=== PATIENT | male | born 1960 | race Caucasian/White ===

== ENCOUNTER 2020-05-14 09:26 | Day surgery (SDC) | payer OTHER, SELFPAY ==
[2020-05-11 11:26] VITALS: BMI 29.8
--- NOTE | 2020-05-11 14:54 | HO.ANESPROP2 ---
Documented by User: Tracey Gavin 05/11/20 14:57 HPI - Anesthesia Eval Consult details Narrative: 60yo M for colonoscopy PMFSH Past Medical History Medical History Anxiety Arthritis Back pain CAD (coronary artery disease) Depression GERD (gastroesophageal reflux disease) Hiatal hernia Hx of syncope Polycythemia vera Prostate CA Sleep apnea Surgical History Surgical History H/O prostatectomy History of esophagogastroduodenoscopy (EGD) History of inferior vena caval filter placement Hx of cardiac cath Hx of colonoscopy Social History Social History Smoking Status: Never smoker Second Hand Smoke Exposure: Yes Use of substances other than those prescribed or required for medical reasons: Yes Substance Use Frequency: Daily Advance Directives: No Advance Directives Information Provided: No Advance Directives on File: No Meds Allergies Allergy/AdvReac Type Severity Reaction Status Date / Time No Known Allergies Allergy Verified 05/14/20 09:44 [No Known Allergies*] Home Medications Medication Instructions Recorded Confirmed Type amlodipine 1 tab PO DAILY 05/11/20 05/11/20 History aspirin 81 mg PO DAILY 05/11/20 05/11/20 History atorvastatin 1 tab PO DAILY 05/11/20 05/11/20 History cyanocobalamin (vitamin B-12) 100 mcg PO DAILY 05/11/20 05/11/20 History fluoxetine 1 cap PO QAM 05/11/20 05/11/20 History metoprolol tartrate 1 tab PO BID 05/11/20 05/11/20 History omeprazole 1 cap PO QAM 05/11/20 05/11/20 History Exam Exam Date and Time: May 11, 2020 1454 Height,Weight and Vital Signs: Height 6 ft Weight 99.79 kg Pertinent Lab Results Pertinent Lab Results: Laboratory Tests 04/20/20 04/20/20 04/20/20 14:22 14:22 14:22 WBC 7.1 Hgb 17.8 Hct 50.7 Plt Count 181 Sodium 141 Potassium 4.2 Chloride 105 Bicarbonate 27 BUN 13 Creatinine 1.30 Hemoglobin A1c 5.5 Calcium 9.8 Total Bilirubin 1.1 H AST 48 H D ALT 59 H Alkaline Phosphatase 91 Total Protein 8.1 H Albumin 4.7 Assessment and Plan Assessment Anesthesia Assessment: Chart Reviewed Documented by User: Yina Briceño 05/14/20 10:31 PMFSH Past Medical History Medical History Anxiety Arthritis Back pain CAD (coronary artery disease) Depression GERD (gastroesophageal reflux disease) Hiatal hernia Hx of syncope Polycythemia vera Prostate CA Sleep apnea Surgical History Surgical History H/O prostatectomy History of esophagogastroduodenoscopy (EGD) History of inferior vena caval filter placement Hx of cardiac cath Hx of colonoscopy Social History Social History Smoking Status: Never smoker Second Hand Smoke Exposure: Yes Use of substances other than those prescribed or required for medical reasons: Yes Substance Use Frequency: Daily Advance Directives: No Advance Directives Information Provided: No Advance Directives on File: No Meds Allergies Allergy/AdvReac Type Severity Reaction Status Date / Time No Known Allergies Allergy Verified 05/14/20 09:44 [No Known Allergies*] Home Medications Medication Instructions Recorded Confirmed Type amlodipine 1 tab PO DAILY 05/11/20 05/11/20 History aspirin 81 mg PO DAILY 05/11/20 05/11/20 History atorvastatin 1 tab PO DAILY 05/11/20 05/11/20 History cyanocobalamin (vitamin B-12) 100 mcg PO DAILY 05/11/20 05/11/20 History fluoxetine 1 cap PO QAM 05/11/20 05/11/20 History metoprolol tartrate 1 tab PO BID 05/11/20 05/11/20 History omeprazole 1 cap PO QAM 05/11/20 05/11/20 History Exam Airway Mallampati Class: II TM Dist: >3cm Neck ROM: Full Loose/Missing/Broken Teeth: No Heart: RRR Lungs: CTA Assessment and Plan Assessment Anesthesia Assessment: Anesthesia Plan Discussed and Chart Reviewed Final Anesthetic Review NPO: Yes ASA Class: II Final Preanesthetic Review: No Changes in Pt Med Stat, Meds/Allgs Chart Reviewed, Consent Obtained/Reviewed and Anes Risks/Benef Reviewed Patient Risk: Intermediate Procedure Risk: Low Assessment/Block/Sedation in SS: Assess/Block/Sedation-SS Anesthetic Plan Anesthetic Plan: MAC: Disposition: Standard PACU
[2020-05-14 09:39] VITALS: BP 152/87; PULSE 58; RESP 18; TEMP 36.6; O2SAT 98
[2020-05-14] MEDS: Lactated Ringers 1,000 ML 100 ML IVCONT (09:53)
[2020-05-14 11:46] VITALS: BP 116/80; PULSE 78; RESP 16; TEMP 36.1; O2SAT 98
[2020-05-14 12:01] VITALS: BP 112/76; PULSE 76; RESP 18; O2SAT 100
--- NOTE | 2020-05-14 12:10 | OP_ITS ---
SURGEON: Emanuel Buenrostro MD INDICATIONS: The patient presents for evaluation of colorectal cancer screening. Full consent has been obtained from him for this, including risks of bleeding and perforation. PREOPERATIVE DIAGNOSIS: Colorectal cancer screening. POSTOPERATIVE DIAGNOSIS: PROCEDURE PERFORMED: Colonoscopy to cecum and terminal ileum with snare polypectomy. ESTIMATED BLOOD LOSS: COMPLICATIONS: ANESTHESIA: Monitored anesthesia care. ASSISTANTS: SPECIMENS: POSTOPERATIVE DIAGNOSES: Colorectal cancer screening, colon polyp, diverticulosis and internal hemorrhoids. DESCRIPTION OF PROCEDURE: The patient was placed in the left lateral decubitus position. The digital rectal exam revealed no abnormalities. The Olympus video pediatric colonoscope was entered into the rectum and advanced easily to the cecum. Once in the cecum, I did identify cecal pouch with appendiceal orifice and a normal-appearing ileocecal valve. The terminal ileum was cannulated and appeared normal. The scope was withdrawn back in the colon. The entire cecum and ileocecal valve appeared normal. The scope was slowly withdrawn assessing all mucosal surfaces carefully. Preparation throughout the colon had some areas of liquid and some small amounts of solid stool, which were irrigated and suctioned away as best as possible. Visualization was not 100%. The only polyp I visualized was in the mid rectum. This was approximately 8 mm in diameter and was snared and recovered by suction. The polypectomy site appeared clean, without any sign of residual polyp nor bleeding. I did not visualize any other polyps, colitis, nor angiodysplasia. There was a mild amount of sigmoid diverticulosis. In the rectum, scope was retroflexed visualizing small internal hemorrhoids, but no other pathology. The rectal mucosa appeared normal. The scope was straightened out and withdrawn from the patient. He tolerated the procedure well and was returned to the recovery area in stable condition. IMPRESSION: 1. Colon polyp, status post snare polypectomy. 2. Diverticulosis. 3. Internal hemorrhoids. 4. Somewhat limited prep. PLAN: Given the somewhat limited prep, I would recommend a repeat colonoscopy in 5 years for further screening even if today's polyp is not a tubular adenoma. He was advised not to use any aspirin and NSAIDs for 1 week. MD KELLE Head/KEKE / [id number]
[2020-05-14 12:12] VITALS: BP 125/86; PULSE 70; RESP 18; TEMP 36.1; O2SAT 97
--- NOTE | 2020-05-14 12:42 | HO.POSTANES ---
Post Anesthesia Evaluation Post Anesthesia Evaluation Vital Signs: Vital Signs Temp Pulse Resp BP Pulse Ox 05/14/20 12:12 96.9 F 70 18 125/86 97 05/14/20 12:01 76 18 112/76 100 05/14/20 11:46 97 F 78 16 116/80 98 05/14/20 09:39 98 F 58 18 152/87 H 98 Anesthesia: Monitored Mental Status: Awake Pain Control: Satisfactory Nausea/Vomiting: None Hydration: Adequate Anesthesia-Related Issues: No Anes. Related Issues
== END 2020-05-14 12:35 | disposition home or self-care (01) ==
PROVIDERS: PCP Internal Medicine; Visit Provider Internal Medicine
PROC: 0DJD8ZZ Inspection of Lower Intestinal Tract, Via Natural or Artificial Opening Endoscopic (ICD-10-PCS; CPT 45378; principal; 2020-05-14 10:30)
DX: Z12.11 Encounter for screening for malignant neoplasm of colon (principal); D12.8 Benign neoplasm of rectum; K57.30 Diverticulosis of large intestine without perforation or abscess without bleeding; K64.8 Other hemorrhoids; K21.9 Gastro-esophageal reflux disease without esophagitis; K44.9 Diaphragmatic hernia without obstruction or gangrene; D45 Polycythemia vera; Z85.46 Personal history of malignant neoplasm of prostate; Z79.82 Long term (current) use of aspirin; Z79.899 Other long term (current) drug therapy
CPT/HCPCS: 45385; 88305

== ENCOUNTER 2022-03-24 12:31 | Outpatient (REF) | payer OTHER, SELFPAY ==
--- NOTE | ~2022-03-24 | XR_ITS ---
EXAMINATION: XR CHEST XR LEFT HEMITHORACIC RIBS CLINICAL INFORMATION: Chest pain. COMPARISON: Chest radiograph done on 08/15/2018. TECHNIQUE: 2 views of the chest and 3 views of the left hemithoracic ribs were obtained. The site of the left lower lateral hemithoracic rib pain as was pointed out by the patient was marked with a cutaneous BB marker. FINDINGS: Chest: Both lungs are symmetrically expanded and appear clear. The cardiac mediastinal silhouette is within normal limit. No evidence of any pleural effusion or pneumothorax. Mild multilevel degenerative spondylosis. Visualized upper abdomen is unremarkable. Left hemithoracic RIBS: There are no displaced left lower hemithoracic rib fractures identified. Specifically, the site of the left lower hemithoracic rib pain as was pointed out by the patient and which was marked with a cutaneous BB marker does not show any underlying displaced fracture. Incidental note is made of presence of inferior vena cava filter. XR/XR chest 2V IMPRESSION: No radiographic evidence of any displaced left lower lateral hemithoracic rib fracture or hemopneumothorax or lung contusion. The etiology for chest pain is not evident on these images.
--- NOTE | ~2022-03-24 | XR_ITS ---
EXAMINATION: XR CHEST XR LEFT HEMITHORACIC RIBS CLINICAL INFORMATION: Chest pain. COMPARISON: Chest radiograph done on 08/15/2018. TECHNIQUE: 2 views of the chest and 3 views of the left hemithoracic ribs were obtained. The site of the left lower lateral hemithoracic rib pain as was pointed out by the patient was marked with a cutaneous BB marker. FINDINGS: Chest: Both lungs are symmetrically expanded and appear clear. The cardiac mediastinal silhouette is within normal limit. No evidence of any pleural effusion or pneumothorax. Mild multilevel degenerative spondylosis. Visualized upper abdomen is unremarkable. Left hemithoracic RIBS: There are no displaced left lower hemithoracic rib fractures identified. Specifically, the site of the left lower hemithoracic rib pain as was pointed out by the patient and which was marked with a cutaneous BB marker does not show any underlying displaced fracture. Incidental note is made of presence of inferior vena cava filter. XR/XR ribs LT 2V IMPRESSION: No radiographic evidence of any displaced left lower lateral hemithoracic rib fracture or hemopneumothorax or lung contusion. The etiology for chest pain is not evident on these images.
--- NOTE | 2022-03-24 12:37 | ECG_ITS ---
Test Reason : ascd w/o angina Blood Pressure : / mmHG Vent. Rate : 063 BPM Atrial Rate : 063 BPM P-R Int : 176 ms QRS Dur : 092 ms QT Int : 416 ms P-R-T Axes : 041 -11 074 degrees QTc Int : 425 ms Normal sinus rhythm Normal ECG When compared with ECG of 16-DEC-2018 16:46, No significant change was found Referred By: Delmy Quiroz Electronically Signed By:SAPNA BONE
== END 2022-03-24 12:32 | disposition home or self-care (01) ==
LOC: HO.XRAY 12:31
PROVIDERS: PCP Internal Medicine; Visit Provider Internal Medicine
DX: R07.9 Chest pain, unspecified (principal); I25.10 Atherosclerotic heart disease of native coronary artery without angina pectoris
CPT/HCPCS: 71046; 71100; 93005

== ENCOUNTER 2022-12-29 14:23 | Outpatient (REF) | payer OTHER, SELFPAY ==
[2022-12-29 14:35] LABS: MANUAL DIFF FLAG NO
[2022-12-29 15:56] LABS: Basophils Absolute Auto 0.1 X10*3/uL (0.0-0.2); Basophils Percent Auto 1.1 % (0-2); Eosinophils Absolute Auto 0.4 X10*3/uL (0.0-0.4); Hematocrit 52.4 % (42.0-52.0); Hemoglobin 18.2 g/dl (14.0-18.0); Imm Gran Abs Auto 0.01 X10*3/uL (0.00-0.03); Imm Gran Pct Auto 0.2 % (0.0-0.4); Lymphocytes Absolute Auto 2.4 X10*3/uL (1.2-4.9); Lymphocytes Percent Auto 37.4 % (20-40); Mean Corpuscular HGB Conc 34.7 g/dl (31.0-36.0); Mean Corpuscular Hemoglobin 32.6 pg (27.0-33.0); Mean Corpuscular Volume 93.7 fL (80.0-98.0); Mean Platelet Volume 10.9 fL (9.4-12.4); Monocytes Absolute Auto 0.6 X10*3/uL (0.1-1.2); Monocytes Percent Auto 8.7 % (2-11); Neutrophils Percent Auto 46.6 % (45-73); Platelet Count 190 X10*3/uL (160-400); Red Blood Count 5.59 X10*6/uL (4.60-5.80); Red Cell Distribution Width 13.2 % (11.0-16.0); White Blood Count 6.3 X10*3/uL (4.8-10.8)
[2022-12-29 16:40] LABS: Alanine Aminotransferase 97 U/L (0-40); Albumin Level 4.3 g/dL (3.5-5.0); Alkaline Phosphatase 94 U/L (39-117); Anion Gap 10 (12-20); Aspartate Amino Transferase 52 U/L (5-37); Bilirubin Total 1.3 mg/dL (0.0-1.0); Blood Urea Nitrogen 12 mg/dL (9-16); Calcium 9.8 mg/dL (8.4-10.2); Carbon Dioxide 28 mmol/L (22-29); Chloride 108 mmol/L (96-108); Cholesterol 201 mg/dL; Estimated Glomerular Filt Rate 55; Glucose Random 88 mg/dL (60-115); HDL Cholesterol 35 mg/dL; LDL Cholesterol Calculated 148 mg/dl; Potassium 4.4 mmol/L (3.3-5.1); Sodium 142 mmol/L (135-145); Total Protein 7.7 g/dL (6.5-8.0); Triglycerides 91 mg/dL
[2022-12-29 17:13] LABS: Folate 14.1 ng/mL (> or = 4.0); Free T4 (Free Thyroxine) 0.93 ng/dL (0.71-1.85); Prostate Specific Antigen Scr < 0.10 ng/mL (<0.05-4.0); Thyroid Stimulating Hormone 1.53 uIU/mL (0.32-4.0); Vitamin B12 885 pg/mL (200-900)
== END 2022-12-29 14:24 | disposition home or self-care (01) ==
LOC: HO.LAB 14:23
PROVIDERS: PCP Internal Medicine; Visit Provider Internal Medicine
DX: Z12.5 Encounter for screening for malignant neoplasm of prostate (principal); I25.10 Atherosclerotic heart disease of native coronary artery without angina pectoris; E78.00 Pure hypercholesterolemia, unspecified
CPT/HCPCS: 36415; 80053; 80061; 82607; 82746; 84153; 84439; 84443; 85025

== ENCOUNTER 2023-01-11 11:32 | Outpatient (REF) | payer OTHER, SELFPAY ==
--- NOTE | ~2023-01-11 | XR_ITS ---
EXAMINATION: XR CERVICAL SPINE CLINICAL INFORMATION: Nondisplaced fracture of C5 COMPARISON: None available. TECHNIQUE: 5 views of the cervical spine were obtained. FINDINGS: Bone alignment is normal. No fracture is appreciated. There is extensive degenerative spondylosis with large bridging vertebral body bony osteophytes seen from C2-C3 to C6-C7. There is degenerative disc space narrowing at multiple levels. There are degenerative changes at the C1 dens articulation. There is severe bilateral neuroforaminal narrowing from C3-C4 to C6-C7. Prevertebral soft tissues are normal. XR/XR cervical spine 4V IMPRESSION: Multilevel degenerative changes. No fracture seen.
== END 2023-01-11 11:33 | disposition home or self-care (01) ==
LOC: HO.XRAY 11:32
PROVIDERS: Visit Provider Physician Assistant
DX: S12.401 Unspecified nondisplaced fracture of fifth cervical vertebra (principal)
CPT/HCPCS: 72050

== ENCOUNTER → 2023-02-02 12:27 | Outpatient (BNVA) | payer OTHER, SELFPAY | PROVIDERS: PCP Internal Medicine; Visit Provider Physician Assistant | DX: M54.2 Cervicalgia (principal); S12.401D Unspecified nondisplaced fracture of fifth cervical vertebra, subsequent encounter for fracture with routine healing; V29.888D Rider (driver) (passenger) of other motorcycle injured in other specified transport accidents, subsequent encounter; F10.20 Alcohol dependence, uncomplicated | CPT/HCPCS: 99202 ==

== ENCOUNTER 2023-03-02 09:20 | Outpatient (REF) | payer OTHER, SELFPAY ==
--- NOTE | ~2023-03-02 | XR_ITS ---
EXAMINATION: XR CERVICAL SPINE CLINICAL INFORMATION: Cervicalgia. History of nondisplaced fracture of C5 COMPARISON: Cervical spine radiographs 01/11/2023 TECHNIQUE: AP and open-mouth odontoid views and lateral extension, lateral flexion and swimmer's view obtained. FINDINGS: The C5 fracture is not well characterized on this study. Extensive multilevel degenerative changes are seen with extensive spondylosis throughout the cervical spine with disc narrowing present at C4-C5 and C5-C6 levels and marked decrease in the C6-C7 disc level. The C7 vertebral body is not optimally visualized. Limited flexion and extension with no segmental instability seen in the regions evaluated. XR/XR cervical spine 3V IMPRESSION: Technically limited examination. No segmental instability is seen.
== END 2023-03-02 09:21 | disposition home or self-care (01) ==
LOC: HO.HOSX 09:20
PROVIDERS: PCP Internal Medicine; Visit Provider Physician Assistant
DX: S12.401 Unspecified nondisplaced fracture of fifth cervical vertebra (principal)
CPT/HCPCS: 72040; 99212

== ENCOUNTER 2023-03-02 14:04 | Outpatient (AMB) | payer OTHER, SELFPAY ==
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
== END 2023-03-02 14:32 | disposition home or self-care (01) ==
PROVIDERS: PCP Internal Medicine; Visit Provider Physician Assistant
DX: S12.401 Unspecified nondisplaced fracture of fifth cervical vertebra (principal)
CPT/HCPCS: 99213

== ENCOUNTER 2023-04-27 14:28 | Outpatient (AMB) | payer OTHER, SELFPAY ==
--- NOTE | 2023-04-27 14:45 | A.OFFPC_ITS ---
Vital Signs 04/27/23 14:46 Height 6 ft Weight 217 lb BMI 29.4 BP 110/58 L Blood Pressure Location Lt brachial Position Sitting Pulse 55 Pulse Source Pulse Oximeter Pulse Oximetry (%) 98 Oxygen Delivery Method Room Air Intake Visit Reasons: 3mth f/u Oven Press Tender: Not Required per policy Accompanied by: Self / Same As Patient Allergies No Known Allergies [No Known Allergies*] Allergy (Verified 04/27/23 14:46) Medication List - Last Reconciled 04/27/23 by Delmy Quiroz MD amlodipine 5 mg PO DAILY aspirin 81 mg PO DAILY atorvastatin 80 mg PO DAILY 90 days baclofen 20 mg PO BEDTIME 28 days cyanocobalamin (vitamin B-12) 100 mcg PO DAILY metoprolol tartrate 25 mg PO BID omeprazole 20 mg PO QAM 90 days tramadol 50 mg PO BID PRN 15 days triamcinolone acetonide 0.5% 1 appl topical BID Tobacco use date assessed: 01/08/23 Fall risk assessment: No Falls in past year Last assessed Fall Risk: 04/27/23 Dental Screening Dental Screen Date: 04/27/23 Did you have a dental visit in the last 12 months?: No Did you have a dental problem in the last 6 months where you did not have access to dental care?: No Was dental information given to patient?: Patient has dentist HPI 3mth f/u HPI Details 63-year-old overweight male with a histo ry of cervical spine fracture. Coronary artery disease hypertension GERD hypercholesterolemia and generalized a nxiety disorder last seen in January 2023. Patient has gone to the spine center stable on x-ray with no signs of instability. Healed fracture MRI done January 2023 no evidence of vascular injury no occlusion or significant stenosis in the major arteries of the neck C6 vertebral fracture is again demonstrated as described. Patient continues to have some neck pains and was asking for refill on the pain medications. Discussed about the blood work done in December history of prostatectomy PSA tested at that time was good cholesterol is the problem patient is on atorvastatin and still with a lot of/high LDL. [facility] Medical History Renal calculus Erectile dysfunction Hypertension Protein S deficiency Hypercholesterolemia Pulmonary embolism CAD (coronary artery disease) Prostate CA Arthritis Polycythemia vera Hiatal hernia GERD (gastroesophageal reflux disease) Sleep apnea Hx of syncope Surgical History History of appendectomy History of inferior vena caval filter placement Hx of colonoscopy History of esophagogastroduodenoscopy (EGD) H/O prostatectomy Hx of cardiac cath Family History Father Medical history unknown Mother Diabetes Asthma Hypertension Brother Dialysis patient Sister Schizophrenia Sister Diabetes Chronic mental illness Other Mental health disorder Social History Housing: Apartment Alcohol intake: current Alcohol intake frequency: 0-2 drinks per day Alcohol type: beer Patient Tobacco Use Status: Never used Tobacco Years Smoked: smoking marijuana e-Cigarette/Vaping Use: Never Used Second Hand Smoke Exposure: Yes service: No Current occupational status: disabled Cognitive needs: No Hearing needs: No Vision needs: No Questionnaire PHQ-9 Over the last 2 weeks, how often have you been bothered by any of the following problems? 1. Little interest or pleasure in doing things: not at all 2. Feeling down, depressed, or hopeless: nearly every day 3. Trouble falling or staying asleep, or sleeping too much: nearly every day 4. Feeling tired or having little energy: several days 5. Poor appetite or overeating: several days 6. Feeling bad about yourself - or that you are a failure or have let yourself or your family down: not at all 7. Trouble concentrating on things, such as reading the newspaper or watching television: not at all 8. Moving or speaking so slowly that other people could have noticed. Or the opposite - being so fidgety or restless that you have been moving around a lot more than usual: not at all 9. Thoughts that you would be better off or of hurting yourself in some way: not at all Total score: 8 Depression Screening Interpretation: Positive Source: Developed by Drs. Emanuel Pablo, Shonda Griffith, Ethan Vieyra and colleagues, with an educational adonay from [employer]. Thrive Questionnaire Date Thrive assessed: 01/08/23 AUDIT C Alcohol Use Questionnaire (AUDIT-C) 1. How often do you have a drink containing alcohol?: 2-3 times a week 2. How many drinks containing alcohol do you have on a typical day when you are drinking?: 1 or 2 Total Score: 3 TINY-7 AMB Questionnaire TINY-7 Date TINY - 7 assessed: 01/08/23 Source: Developed by Drs. Emanuel Pablo, Shonda Griffith, Ethan Vieyra and colleagues, with an educational adonay from [employer]. Physical exam (Primary Care) Vital Signs: Last Vital Signs Pulse 55 04/27/23 14:46 BP 110/58 L 04/27/23 14:46 Pulse Ox 98 04/27/23 14:46 Oxygen Delivery Method Room Air 04/27/23 14:46 BMI result Body Mass Index 29.4 Tobacco/Smoking Status: Tobacco use Status Tobacco use date assessed 01/08/23 04/27/23 14:50 Patient Tobacco Use Status Never used Tobacco 04/27/23 14:50 e-Cigarette/Vaping Use Never Used 04/27/23 14:50 PHQ-9: PHQ-9 Score PHQ-9: Total score 8 04/27/23 14:50 Depression Screening Interpretation: Positive Thrive Assessment: Date of Thrive Assessment Date Thrive assessed 01/08/23 04/27/23 14:50 Const General: alert; No acute distress Eyes Conjunctivae: conjunctivae normal Resp Auscultation: clear to auscultation bilaterally Cardio Rate: regular rate Rhythm: regular rhythm GI Inspection: Yes normal to inspection Extrem General: Yes normal to inspection and No edema Assessment and Plan Assessment & Plan (1) Cervical spine fracture: Comment: CT head 01/04/2023 horizontal fracture involving C6 anterior middle columns potentially and staying appears to extend into the left transverse process in the area of the vertebral 4 minutes, mild anterior distraction Code(s): S12.9XXA - Fracture of neck, unspecified, initial encounter Qualifiers: Encounter type: subsequent encounter Cervical vertebra fracture level: C5 Fracture type: closed Fracture morphology: unspecified fracture morphology Fracture alignment: nondisplaced Fracture healing: with delayed healing Qualified Code(s): S12.401G - Unspecified nondisplaced fracture of fifth cervical vertebra, subsequent encounter for fracture with delayed healing Plan: Reviewed the notes from neurosurgeon, cervical spine fracture healed (2) Overweight (BMI 25.0-29.9): Code(s): E66.3 - Overweight Plan: Complete can you with diet and exercise (3) GERD (gastroesophageal reflux disease): Comment: EGD August 2006 Code(s): K21.9 - Gastro-esophageal reflux disease without esophagitis Qualifiers: Esophagitis presence: without esophagitis Qualified Code(s): K21.9 - Gastro-esophageal reflux disease without esophagitis Plan: Avoid the foods that causes that usually spicy foods, tomato products, juices, coffee, soda and foods that your sensitive to. After eating do not lie down, allow 3-4 hours before in lie down. And keep the head of bed above 30 degrees to avoid the acid from going up. (4) Hypercholesterolemia: Code(s): E78.00 - Pure hypercholesterolemia, unspecified Plan: Avoid fried foods, chicken skin, eggs, butter margarine, pastries and meat. Be it pork or beef they have a lot of cholesterol LDL goal of less than 70 and triglyceride of less than 150 patient is on atorvastatin 80. December 2022 blood work showing high cholesterol (5) Hypertension: Code(s): I10 - Essential (primary) hypertension Qualifiers: Hypertension type: essential hypertension Qualified Code(s): I10 - Essential (primary) hypertension Plan: Continue with blood pressure medication. Decrease salt intake and exercise patient on metoprolol 25 mg twice a day and amlodipine 5 mg once a day (6) CAD (coronary artery disease): Comment: Cath 2019 shows nml coronaries Code(s): I25.10 - Atherosclerotic heart disease of [place] coronary artery without angina pectoris Qualifiers: Coronary Disease-Associated Artery/Lesion type: [place] artery [place] vs. transplanted heart: [place] heart Associated angina: without angina Qualified Code(s): I25.10 - Atherosclerotic heart disease of [place] coronary artery without angina pectoris Plan: Control the cholesterol, weight, blood pressure Orders: Orders Comprehensive Met. Panel Today I25.10 - Atherosclerotic heart disease of [place] coronary artery without angina pectoris Thyroid Stimulating Hormone Today I25.10 - Atherosclerotic heart disease of [place] coronary artery without angina pectoris Complete Blood Count Auto Diff Today I25.10 - Atherosclerotic heart disease of [place] coronary artery without angina pectoris Free T4 (Free Thyroxine) Today I25.10 - Atherosclerotic heart disease of [place] coronary artery without angina pectoris Lipid Panel Today E78.00 - Pure hypercholesterolemia, unspecified, I25.10 - Atherosclerotic heart disease of [place] coronary artery without angina pectoris Medications: Refilled baclofen 20 mg PO BEDTIME 28 days 28 tabs 0RF S12.9XXA - Fracture of neck, unspecified, initial encounter tramadol 50 mg PO BID 15 days PRN 30 tabs 0RF pain S12.9XXA - Fracture of neck, unspecified, initial encounter Coding Level of Care Code Est Pt Level 4 (19852) Diagnoses Closed nondisplaced fracture of fifth cervical vertebra with delayed healing, unspecified fracture morphology, subsequent encounter S12.401G Encounter type: subsequent encounter Cervical vertebra fracture level: C5 Fracture type: closed Fracture morphology: unspecified fracture morphology Fracture alignment: nondisplaced Fracture healing: with delayed healing Overweight (BMI 25.0-29.9) E66.3 Gastroesophageal reflux disease without esophagitis K21.9 Esophagitis presence: without esophagitis Hypercholesterolemia E78.00 Essential hypertension I10 Hypertension type: essential hypertension Coronary artery disease involving [place] coronary artery of [place] heart without angina pectoris I25.10 Coronary Disease-Associated Artery/Lesion type: [place] artery [place] vs. transplanted heart: [place] heart Associated angina: without angina
[2023-04-27 14:46] VITALS: BP 110/58; PULSE 55; O2SAT 98; BMI 29.4
== END 2023-04-27 15:15 | disposition home or self-care (01) ==
PROVIDERS: PCP Internal Medicine; Visit Provider Internal Medicine
DX: K21.9 Gastro-esophageal reflux disease without esophagitis (principal); I10 Essential (primary) hypertension; S12.401 Unspecified nondisplaced fracture of fifth cervical vertebra; E66.3 Overweight; E78.00 Pure hypercholesterolemia, unspecified; I25.10 Atherosclerotic heart disease of native coronary artery without angina pectoris
CPT/HCPCS: 99214

== ENCOUNTER 2023-05-18 14:14 | Outpatient (AMB) | payer OTHER, SELFPAY ==
--- NOTE | 2023-05-18 14:19 | MHC.PC.OV ---
Vital Signs 05/18/23 14:20 Height 6 ft Weight 216 lb BMI 29.3 BP 130/80 Blood Pressure Location Lt brachial Position Sitting Pulse 55 Pulse Source Pulse Oximeter Pulse Oximetry (%) 97 Oxygen Delivery Method Room Air Intake Visit Reasons: Annual PE Intake Note: Patient is here today for a physical. 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: Not Required per policy Accompanied by: Self / Same As Patient Allergies No Known Allergies [No Known Allergies*] Allergy (Verified 05/20/23 07:19) Medication List - Last Reconciled 05/20/23 by JENNY Moran amlodipine 5 mg PO DAILY aspirin 81 mg PO DAILY atorvastatin 80 mg PO DAILY 90 days baclofen 20 mg PO BEDTIME 28 days cyanocobalamin (vitamin B-12) 100 mcg PO DAILY metoprolol tartrate 25 mg PO BID omeprazole 20 mg PO QAM 90 days tramadol 50 mg PO BID PRN 15 days triamcinolone acetonide 0.5% 1 appl topical BID Tobacco use date assessed: 05/18/23 HPI HPI Comments History of Present Illness Details 63-year-old overweight male with hypercholesterolemia GERD hypertension coronary artery disease, cervical spine fracture coming in for physical exam. Patient reports ongoing cervical neck pain for which she takes baclofen and tramadol for this. Patient reports difficulty with range of motion recommended referral to physical therapy for this however patient declines at this time. Denies chest pain, palpitations, shortness of breath and syncope. Eye exam: Recommend Colonoscopy: May 2020; tubular adenoma recommended 5 year follow-up PSA WNL in October 2022 An annual flu shot given in office today, TD 2018 [facility] Medical History Renal calculus Erectile dysfunction Hypertension Protein S deficiency Hypercholesterolemia Pulmonary embolism CAD (coronary artery disease) Prostate CA Arthritis Polycythemia vera Hiatal hernia GERD (gastroesophageal reflux disease) Sleep apnea Hx of syncope Surgical History History of appendectomy History of inferior vena caval filter placement Hx of colonoscopy History of esophagogastroduodenoscopy (EGD) H/O prostatectomy Hx of cardiac cath Family History Father Medical history unknown Mother Diabetes Asthma Hypertension Brother Dialysis patient Sister Schizophrenia Sister Diabetes Chronic mental illness Other Mental health disorder Social History Housing: Apartment Alcohol intake: current Alcohol intake frequency: 0-2 drinks per day Alcohol type: beer Patient Tobacco Use Status: Never used Tobacco Years Smoked: smoking marijuana e-Cigarette/Vaping Use: Never Used Second Hand Smoke Exposure: Yes service: No Current occupational status: disabled Cognitive needs: No Hearing needs: No Vision needs: No Questionnaire Thrive Questionnaire Date Thrive assessed: 01/08/23 TINY-7 AMB Questionnaire TINY-7 Date TINY - 7 assessed: 01/08/23 Source: Developed by Drs. Emanuel Pablo, Shonda Griffith, Ethan Vieyra and colleagues, with an educational adonay from [employer]. Review of Systems Const Denies chills, Denies fatigue, Denies fever(s) and Denies poor appetite Eyes Denies no additional complaints ENT Reports Normal hearing present Card Denies chest pain, Denies syncope, Denies rapid heart rate and Denies dyspnea Resp Denies cough and Denies dyspnea GI Denies change in stool character, Denies constipation, Denies diarrhea, Denies nausea and Denies vomiting Denies dysuria, Denies urinary frequency and Denies urinary urgency Neuro Reports Normal hearing present, Denies confusion and Denies syncope Psych Denies confusion Endo Denies fatigue Physical exam (Primary Care) Vital Signs: Last Vital Signs Pulse 55 05/18/23 14:20 BP 130/80 05/18/23 14:20 Pulse Ox 97 05/18/23 14:20 Oxygen Delivery Method Room Air 05/18/23 14:20 BMI result Body Mass Index 29.3 Tobacco/Smoking Status: Tobacco use Status Tobacco use date assessed 05/18/23 05/18/23 14:24 Patient Tobacco Use Status Never used Tobacco 05/18/23 14:24 e-Cigarette/Vaping Use Never Used 05/18/23 14:24 Thrive Assessment: Date of Thrive Assessment Date Thrive assessed 01/08/23 05/18/23 14:24 Const General: No confusion Orientation/consciousness: No confusion HENMT Head: Yes normocephalic and Yes atraumatic Ears: external ears normal and TM's normal bilaterally General nose exam: Normal external nose present and Normal nasal mucous membranes and turbinates present Face and sinus: Yes normal facial exam and Yes sinuses nontender Mouth: moist mucous membranes Throat: Yes tonsils normal Eyes Conjunctivae: conjunctivae normal Sclerae: sclerae normal Pupils: Equal, round and reactive pupils present and Pupils normal by confrontation EOM: EOMs intact bilaterally Direct Ophthalmoscopy: normal light reflex Neck Neck: Yes no lymphadenopathy and Yes supple Thyroid: Thyroid normal Chest Chest palpation & inspection: normal inspection of the chest Resp Effort & Inspection: normal respiratory effort Auscultation: clear to auscultation bilaterally, no crackles, no rhonchi and no wheezes Cardio Rate: regular rate Rhythm: regular rhythm Peripheral pulses: radial pulses present and dorsalis pedis present GI Inspection: Yes normal to inspection Palpation (GI): Soft to palpation, nontender and No hepatosplenomegaly present Auscultation: normoactive bowel sounds Skin General skin exam: no rashes or lesions noted Neuro General: No confusion Cranial nerves: Yes Equal, round and reactive pupils present and Yes Normal hearing present Cognition (Neuro): normal cognition Gait exam (Neuro): Normal gait present Motor exam (neuro): 5/5 motor strength present throughout Deep tendon reflexes (DTR's): Right brachioradialis reflex intensity grade: 2+, Left brachioradialis reflex intensity grade: 2+, Right patellar reflex intensity grade: 2+ and Left patellar reflex intensity grade: 2+ Extrem General: No edema Office Procedures Flu Questionnaire Does the patient have a severe egg allergy?: No Does the patient have severe life threatening allergies?: No Does the patient have a fever or illness today?: No Has the patient ever had Guillain-[place] Syndrome?: No Has the patient ever had any past reaction to a flu shot?: No Immunizations flu vacc [id number] 6mos up(PF) 60 mcg(15 mcgx4)/0.5 mL IM syringe Performing Provider: JENNY Moran Performing Location: [facility] Administered by: MYNOR Hou on 05/18/23 14:29 Dose Route Admin Location Dispensed Lot Number Expiration Date NDC Derrick Boat Lever Operator 0.5 mL IM Left Deltoid 0.5 mL [id number] 02/03/24 02386-421-83 [email or web address] V[facility] Given Date VIS Provided VIS Publication Date 05/18/23 Single Vaccine 21 Eligibility Eligibility Date Funding Source Not [facility] Eligible 05/18/23 Private Assessment and Plan Assessment & Plan (1) Cervicalgia: Code(s): M54.2 - Cervicalgia Plan: Recommended referral to physical therapy, patient declined. Continue on tramadol and baclofen (2) Hypertension: Code(s): I10 - Essential (primary) hypertension Qualifiers: Hypertension type: essential hypertension Qualified Code(s): I10 - Essential (primary) hypertension Plan: Continue on metoprolol 25 mg b.i.d. and amlodipine 5 mg daily. Follow low-salt diet and exercise Blood pressure goal less than 140/90 (3) Hypercholesterolemia: Code(s): E78.00 - Pure hypercholesterolemia, unspecified Plan: Continue on atorvastatin 80 mg daily. Follow low-cholesterol diet. (4) GERD (gastroesophageal reflux disease): Comment: EGD August 2006 Code(s): K21.9 - Gastro-esophageal reflux disease without esophagitis Qualifiers: Esophagitis presence: without esophagitis Qualified Code(s): K21.9 - Gastro-esophageal reflux disease without esophagitis Plan: Continue on omeprazole. (5) Physical exam, annual: Code(s): Z00.00 - Encounter for general adult medical examination without abnormal findings Plan: Follow-up in 1 year for annual physical exam. Plan Keep scheduled follow-up with PCP Orders: Orders Influenza [id number] Immunization 05/18/23 Z23 - Encounter for immunization Coding Level of Care Code Est Pt Prev Care 40-64y(24114) Diagnoses Cervicalgia M54.2 Essential hypertension I10 Hypertension type: essential hypertension Hypercholesterolemia E78.00 Gastroesophageal reflux disease without esophagitis K21.9 Esophagitis presence: without esophagitis Physical exam, annual Z00.00
[2023-05-18 14:20] VITALS: BP 130/80; PULSE 55; O2SAT 97; BMI 29.3
== END 2023-05-18 14:44 | disposition home or self-care (01) ==
PROVIDERS: PCP Internal Medicine; Visit Provider Nurse Practitioner Family
DX: Z23 Encounter for immunization (principal)
CPT/HCPCS: 90471; 90686; 99396

== ENCOUNTER 2023-09-14 13:26 | Outpatient (REF) | payer OTHER, SELFPAY ==
[2023-09-14 13:36] LABS: MANUAL DIFF FLAG NO
[2023-09-14 13:40] LABS: Basophils Percent Auto 0.5 % (0-2); Eosinophils Absolute Auto 0.2 X10*3/uL (0.0-0.4); Eosinophils Percent Auto 2.7 % (0-4); Hematocrit 51.5 % (42.0-52.0); Hemoglobin 18.1 g/dl (14.0-18.0); Imm Gran Abs Auto 0.02 X10*3/uL (0.00-0.03); Imm Gran Pct Auto 0.3 % (0.0-0.4); Lymphocytes Absolute Auto 2.1 X10*3/uL (1.2-4.9); Lymphocytes Percent Auto 29.2 % (20-40); Mean Corpuscular HGB Conc 35.1 g/dl (31.0-36.0); Mean Corpuscular Hemoglobin 31.7 pg (27.0-33.0); Mean Corpuscular Volume 90.2 fL (80.0-98.0); Mean Platelet Volume 9.9 fL (9.4-12.4); Monocytes Absolute Auto 0.3 X10*3/uL (0.1-1.2); Monocytes Percent Auto 4.5 % (2-11); Neutrophils Absolute Auto 4.6 x10*3/uL (2.0-8.3); Neutrophils Percent Auto 62.8 % (45-73); Platelet Count 261 X10*3/uL (160-400); Red Blood Count 5.71 X10*6/uL (4.60-5.80); Red Cell Distribution Width 12.5 % (11.0-16.0); White Blood Count 7.3 X10*3/uL (4.8-10.8)
[2023-09-14 14:46] LABS: Alanine Aminotransferase 49 U/L (0-40); Albumin Level 4.4 g/dL (3.5-5.0); Alkaline Phosphatase 110 U/L (39-117); Anion Gap 11 (12-20); Aspartate Amino Transferase 31 U/L (5-37); Bilirubin Total 0.8 mg/dL (0.0-1.0); Blood Urea Nitrogen 8 mg/dL (9-16); Calcium 9.8 mg/dL (8.4-10.2); Carbon Dioxide 28 mmol/L (22-29); Chloride 108 mmol/L (96-108); Cholesterol 137 mg/dL (<200); Estimated Glomerular Filt Rate > 60; Glucose Random 92 mg/dL (60-115); HDL Cholesterol 28 mg/dL (>40); LDL Cholesterol Calculated 86 mg/dL (<100); Sodium 143 mmol/L (135-145); Total Protein 8.2 g/dL (6.5-8.0); Triglycerides 118 mg/dL (<150)
[2023-09-14 15:02] LABS: Thyroid Stimulating Hormone 0.99 uIU/mL (0.32-4.0)
== END 2023-09-14 13:27 | disposition home or self-care (01) ==
LOC: HO.LAB 13:26
PROVIDERS: PCP Internal Medicine; Visit Provider Internal Medicine
DX: E78.00 Pure hypercholesterolemia, unspecified (principal); I25.10 Atherosclerotic heart disease of native coronary artery without angina pectoris
CPT/HCPCS: 36415; 80053; 80061; 84439; 84443; 85025

== ENCOUNTER 2023-09-19 11:03 | Outpatient (AMB) | payer OTHER, SELFPAY ==
[2023-09-19 11:05] VITALS: BP 140/90; PULSE 52; O2SAT 96; BMI 29.6
--- NOTE | 2023-09-19 11:05 | A.OFFPC_ITS ---
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: No Allergies No Known Allergies [No Known Allergies*] Allergy (Verified 09/19/23 11:06) Medication List - Last Reconciled 09/19/23 by Delmy Quiroz MD amlodipine 5 mg PO DAILY aspirin 81 mg PO DAILY baclofen 20 mg PO BEDTIME 28 days cyanocobalamin (vitamin B-12) 100 mcg PO DAILY metoprolol tartrate 25 mg PO BID omeprazole 20 mg PO QAM 90 days rosuvastatin 40 mg PO DAILY tramadol 50 mg PO BID PRN 15 days triamcinolone acetonide 0.5% 1 appl topical BID Tobacco use date assessed: 09/19/23 Fall risk assessment: No Falls in past year Last assessed Fall Risk: 09/19/23 Dental Screening Dental Screen Date: 09/19/23 Did you have a dental visit in the last 12 months?: Yes Did you have a dental problem in the last 6 months where you did not have access to dental care?: No Was dental information given to patient?: Patient has dentist HPI cholesterol HPI Details 63-year-old overweight male with hyperch olesterolemia hypertension and neck pain last seen in May 2023. Patient had a physical exam at that time. Patient's colon test is up-to-date 2019. adfter flu 2 weeks ago RUQ abd pain , no cough, no sob worsde on standing PFSH Medical History Renal calculus Erectile dysfunction Hypertension Protein S deficiency Hypercholesterolemia Pulmonary embolism CAD (coronary artery disease) Prostate CA Arthritis Polycythemia vera Hiatal hernia GERD (gastroesophageal reflux disease) Sleep apnea Hx of syncope Surgical History History of appendectomy History of inferior vena caval filter placement Hx of colonoscopy History of esophagogastroduodenoscopy (EGD) H/O prostatectomy Hx of cardiac cath Family History Father Medical history unknown Mother Diabetes Asthma Hypertension Brother Dialysis patient Sister Schizophrenia Sister Diabetes Chronic mental illness Other Mental health disorder Social History Housing: Apartment Alcohol intake: current Alcohol intake frequency: 0-2 drinks per day Alcohol type: beer Patient Tobacco Use Status: Never used Tobacco Years Smoked: smoking marijuana e-Cigarette/Vaping Use: Never Used Second Hand Smoke Exposure: Yes service: No Current occupational status: disabled Cognitive needs: No Hearing needs: No Vision needs: No Questionnaire Thrive Questionnaire Date Thrive assessed: 09/19/23 AUDIT C Alcohol Use Questionnaire (AUDIT-C) 1. How often do you have a drink containing alcohol?: 2-3 times a week 2. How many drinks containing alcohol do you have on a typical day when you are drinking?: 1 or 2 Total Score: 3 TINY-7 AMB Questionnaire TINY-7 Date TINY - 7 assessed: 09/19/23 Source: Developed by Drs. Emanuel Pablo, Shonda Griffith, Ethan Vieyra and colleagues, with an educational adonay from [employer]. Physical exam (Primary Care) Vital Signs: Last Vital Signs Pulse 52 09/19/23 11:05 BP 140/90 H 09/19/23 11:05 Pulse Ox 96 09/19/23 11:05 Oxygen Delivery Method Room Air 09/19/23 11:05 BMI result Body Mass Index 29.6 Tobacco/Smoking Status: Tobacco use Status Tobacco use date assessed 09/19/23 09/19/23 11:07 Patient Tobacco Use Status Never used Tobacco 09/19/23 11:07 e-Cigarette/Vaping Use Never Used 09/19/23 11:07 Thrive Assessment: Date of Thrive Assessment Date Thrive assessed 09/19/23 09/19/23 11:07 Const General: alert; No acute distress Eyes Conjunctivae: conjunctivae normal Resp Auscultation: clear to auscultation bilaterally Cardio Rate: regular rate Rhythm: regular rhythm GI Inspection: Yes normal to inspection Extrem General: Yes normal to inspection and No edema Assessment and Plan Assessment & Plan (1) Overweight (BMI 25.0-29.9): Code(s): E66.3 - Overweight Plan: Diet and exercise (2) Cervical spine fracture: Comment: CT head 01/04/2023 horizontal fracture involving C6 anterior middle columns potentially and staying appears to extend into the left transverse process in the area of the vertebral 4 minutes, mild anterior distraction Code(s): S12.9XXA - Fracture of neck, unspecified, initial encounter Qualifiers: Encounter type: subsequent encounter Cervical vertebra fracture level: C5 Fracture type: closed Fracture morphology: unspecified fracture morphology Fracture alignment: nondisplaced Fracture healing: with delayed healing Quali fied Code(s): S12.401G - Unspecified nondisplaced fracture of fifth cervical vertebra, subsequent encounter for fracture with delayed healing Plan: Keep active (3) CAD (coronary artery disease): Comment: Cath 2018 shows nml coronaries Code(s): I25.10 - Atherosclerotic heart disease of [place] coronary artery without angina pectoris Qualifiers: Coronary Disease-Associated Artery/Lesion type: [place] artery [place] vs. transplanted heart: [place] heart Associated angina: without angina Qualified Code(s): I25.10 - Atherosclerotic heart disease of [place] coronary artery without angina pectoris Plan: Control the cholesterol, weight, blood pressure continue with aspirin 81 mg once a day (4) Hypertension: Code(s): I10 - Essential (primary) hypertension Qualifiers: Hypertension type: essential hypertension Qualified Code(s): I10 - Essential (primary) hypertension Plan: Continue with blood pressure medication. Decrease salt intake and exercise takes amlodipine 5 mg once a day metoprolol 25 mg twice a day (5) GERD (gastroesophageal reflux disease): Comment: EGD August 2006 Code(s): K21.9 - Gastro-esophageal reflux disease without esophagitis Qualifiers: Esophagitis presence: without esophagitis Qualified Code(s): K21.9 - Gastro-esophageal reflux disease without esophagitis Plan: Avoid the foods that causes that usually spicy foods, tomato products, juices, coffee, soda and foods that your sensitive to. After eating do not lie down, allow 3-4 hours before in lie down. And keep the head of bed above 30 degrees to avoid the acid from going up. On omeprazole (6) Hypercholesterolemia: Code(s): E78.00 - Pure hypercholesterolemia, unspecified Plan: Avoid fried foods, chicken skin, eggs, butter margarine, pastries and meat. Be it pork or beef they have a lot of cholesterol LDL goal of less than 70 and triglyceride of less than 150. Patient on atorvastatin 80 mg once a day (7) Generalized anxiety disorder: Code(s): F41.1 - Generalized anxiety disorder Plan: Stable (8) RUQ abdominal pain: Code(s): R10.11 - Right upper quadrant pain (9) Polycythemia: Code(s): D75.1 - Secondary polycythemia Orders: Orders US abdomen complete Today R10.11 - Right upper quadrant pain, R79.89 - Other specified abnormal findings of blood chemistry Comprehensive Met. Panel 3 Months E78.00 - Pure hypercholesterolemia, unspecified Lipid Panel 3 Months E78.00 - Pure hypercholesterolemia, unspecified Referrals Hematology & Oncology Referral D75.1 - Secondary polycythemia Medications: New rosuvastatin 40 mg PO DAILY 30 tabs 9RF E78.00 - Pure hypercholesterolemia, unspecified Refilled amlodipine 5 mg PO DAILY 90 tabs 3RF F41.1 - Generalized anxiety disorder omeprazole 20 mg PO QAM 90 caps 1RF 90 days K21.9 - Gastro-esophageal reflux disease without esophagitis triamcinolone acetonide 0.5% 1 appl topical BID 45 grams 0RF L30.9 - Dermatitis, unspecified metoprolol tartrate 25 mg PO BID 180 tabs 2RF F41.1 - Generalized anxiety disorder Discontinued atorvastatin Discontinued Reason: Doctor's Order 80 mg PO DAILY 90 tabs 1RF 90 days E78.00 - Pure hypercholesterolemia, unspecified, I25.10 - Atherosclerotic heart disease of [place] coronary artery without angina pectoris Coding Level of Care Code Est Pt Level 4 (54266) Diagnoses Overweight (BMI 25.0-29.9) E66.3 Closed nondisplaced fracture of fifth cervical vertebra with delayed healing, unspecified fracture morphology, subsequent encounter S12.401G Encounter type: subsequent encounter Cervical vertebra fracture level: C5 Fracture type: closed Fracture morphology: unspecified fracture morphology Fracture alignment: nondisplaced Fracture healing: with delayed healing Coronary artery disease involving [place] coronary artery of [place] heart without angina pectoris I25.10 Coronary Disease-Associated Artery/Lesion type: [place] artery [place] vs. transplanted heart: [place] heart Associated angina: without angina Essential hypertension I10 Hypertension type: essential hypertension Gastroesophageal reflux disease without esophagitis K21.9 Esophagitis presence: without esophagitis Hypercholesterolemia E78.00 Generalized anxiety disorder F41.1 RUQ abdominal pain R10.11 Polycythemia D75.1
== END 2023-09-19 12:00 | disposition home or self-care (01) ==
PROVIDERS: PCP Internal Medicine; Visit Provider Internal Medicine
DX: E66.3 Overweight (principal); S12.401 Unspecified nondisplaced fracture of fifth cervical vertebra; I25.10 Atherosclerotic heart disease of native coronary artery without angina pectoris; I10 Essential (primary) hypertension; K21.9 Gastro-esophageal reflux disease without esophagitis; E78.00 Pure hypercholesterolemia, unspecified; F41.1 Generalized anxiety disorder; R10.11 Right upper quadrant pain; D75.1 Secondary polycythemia
CPT/HCPCS: 99214

== ENCOUNTER → 2023-10-03 11:20 | Outpatient (BNV) | payer OTHER, SELFPAY | PROVIDERS: PCP Internal Medicine; Referring Provider Internal Medicine; Visit Provider Internal Medicine Medical Oncology | DX: D75.1 Secondary polycythemia (principal); Z86.718 Personal history of other venous thrombosis and embolism | CPT/HCPCS: 99204; 99213; 99214; G2211 ==

== ENCOUNTER 2023-10-04 08:19 | Outpatient (REF) | payer OTHER, SELFPAY ==
--- NOTE | ~2023-10-04 | US_ITS ---
EXAMINATION: US ABDOMEN COMPLETE CLINICAL INFORMATION: Other specified abnormal findings of blood chemistry. Right upper quadrant pain. Elevated LFTs. COMPARISON: Renal ultrasound 11/11/2019. CT abdomen and pelvis 08/24/2010. Ultrasound abdomen 07/22/2009. TECHNIQUE: Real-time imaging of the abdominal viscera. Technically difficult study secondary to bowel gas. FINDINGS: PANCREAS: Visualized portions of the pancreas are unremarkable however portions are obscured by bowel gas limiting evaluation. ABDOMINAL AORTA: Visualized aorta is normal in caliber however portions are obscured by bowel gas. INFERIOR VENA CAVA: Visualized portions are normal. LIVER: The liver is normal in size. The liver contour is normal. Mildly increased hepatic echogenicity which can be seen in the setting of hepatic steatosis or underlying liver disease. Subcentimeter simple left hepatic lobe cyst. There is no intrahepatic biliary duct dilatation seen. GALLBLADDER: The gallbladder is physiologically distended without evidence of stones, sludge, polyps, wall thickening or pericholecystic fluid. COMMON BILE DUCT: Minimally dilated for age measuring 0.7 cm in diameter. RIGHT KIDNEY: No hydronephrosis or renal calculi. The kidney measures 12.1 cm in maximum dimension. Benign-appearing renal cyst measuring 6.4 cm. No follow up imaging is recommended. LEFT KIDNEY: Normal. No hydronephrosis. No renal calculi or focal parenchymal lesions. The kidney measures 11.8 cm in maximum dimension. SPLEEN: Normal. The spleen measures 10.0 cm in maximum dimension. FREE FLUID: None. US/US abdomen complete IMPRESSION: 1. Mildly increased hepatic echogenicity which can be seen in the setting of hepatic steatosis or underlying liver disease. 2. Common bile duct is minimally dilated for age measuring 7 mm. No intrahepatic biliary duct dilatation. Consider correlation with MRCP if warranted clinically. 3. Portions of the pancreas and aorta were obscured by bowel gas limiting evaluation.
== END 2023-10-04 08:20 | disposition home or self-care (01) ==
LOC: HO.HMGCX 08:19
PROVIDERS: PCP Internal Medicine; Visit Provider Internal Medicine
DX: R79.89 Other specified abnormal findings of blood chemistry (principal); R10.11 Right upper quadrant pain
CPT/HCPCS: 76700

== ENCOUNTER 2023-10-08 13:29 | Outpatient (REF) | payer OTHER, SELFPAY | END 2023-10-08 13:30 | disposition home or self-care (01) | LOC: HO.BBR 13:29 | PROVIDERS: PCP Internal Medicine; Visit Provider Internal Medicine Medical Oncology | DX: D75.1 Secondary polycythemia (principal) | CPT/HCPCS: 85014; 85018; 99195 ==

== ENCOUNTER 2023-12-25 09:44 | Outpatient (AMB) | payer OTHER, SELFPAY ==
[2023-12-25 09:59] VITALS: BP 130/72; PULSE 57; O2SAT 98; BMI 29.4
--- NOTE | 2023-12-25 09:59 | MHC.PC.OV ---
Vital Signs 12/25/23 09:59 Height 6 ft Weight 217 lb BMI 29.4 BP 130/72 Blood Pressure Location Lt brachial Position Sitting Pulse 57 Pulse Source Pulse Oximeter Pulse Oximetry (%) 98 Oxygen Delivery Method Room Air Intake Visit Reasons: RUQ pain, cholesterol Allergies No Known Allergies [No Known Allergies*] Allergy (Verified 12/25/23 09:59) Tobacco use date assessed: 09/19/23 Fall risk assessment: No Falls in past year Last assessed Fall Risk: 12/25/23 Dental Screening Dental Screen Date: 12/25/23 Did you have a dental visit in the last 12 months?: No Did you have a dental problem in the last 6 months where you did not have access to dental care?: No Was dental information given to patient?: No HPI RUQ pain, cholesterol HPI Details 63-year-old overweight male with a history of CAD hypertension GERD hypercholesterolemia generalized anxiety disorder last seen in September 2023. Patient follows up with Hematology-Oncology seen in 12/17/2023 for erythrocytosis has a remote history of pulmonary embolism having therapeutic phlebotomy presently off anticoagulation noted also on ER visit in November for abdominal pain . presently no pain PFSH Medical History (Updated 12/25/23 @ 10:35 by Delmy Quiroz MD) Renal calculus Erectile dysfunction Hypertension Protein S deficiency Hypercholesterolemia Pulmonary embolism CAD (coronary artery disease) Prostate CA Arthritis Polycythemia vera Hiatal hernia GERD (gastroesophageal reflux disease) Sleep apnea Hx of syncope Surgical History History of appendectomy History of inferior vena caval filter placement Hx of colonoscopy History of esophagogastroduodenoscopy (EGD) H/O prostatectomy Hx of cardiac cath Family History Father Medical history unknown Mother Diabetes Asthma Hypertension Brother Dialysis patient Sister Schizophrenia Sister Diabetes Chronic mental illness Other Mental health disorder Social History (Updated 10/03/23 @ 13:11 by Catalina Mayberry) Housing: Apartment Alcohol intake: current Alcohol intake frequency: 0-2 drinks per day Alcohol type: beer Patient Tobacco Use Status: Never used Tobacco Years Smoked: smoking marijuana e-Cigarette/Vaping Use: Never Used Second Hand Smoke Exposure: Yes Substance Use Type: Marijuana service: No Current occupational status: disabled Cognitive needs: No Hearing needs: No Vision needs: No Questionnaire PHQ-9 Over the last 2 weeks, how often have you been bothered by any of the following problems? 1. Little interest or pleasure in doing things: not at all 2. Feeling down, depressed, or hopeless: nearly every day 3. Trouble falling or staying asleep, or sleeping too much: nearly every day 4. Feeling tired or having little energy: several days 5. Poor appetite or overeating: several days 6. Feeling bad about yourself - or that you are a failure or have let yourself or your family down: not at all 7. Trouble concentrating on things, such as reading the newspaper or watching television: not at all 8. Moving or speaking so slowly that other people could have noticed. Or the opposite - being so fidgety or restless that you have been moving around a lot more than usual: not at all 9. Thoughts that you would be better off or of hurting yourself in some way: not at all Total score: 8 Depression Screening Interpretation: Positive Depression Screening Done: Yes Source: Developed by Drs. Emanuel Pablo, Shonda Griffith, Ethan Vieyra and colleagues, with an educational adonay from [employer]. Thrive Questionnaire Date Thrive assessed: 09/19/23 AUDIT C Alcohol Use Questionnaire (AUDIT-C) 1. How often do you have a drink containing alcohol?: 2-3 times a week 2. How many drinks containing alcohol do you have on a typical day when you are drinking?: 1 or 2 Total Score: 3 TINY-7 AMB Questionnaire TINY-7 Date TINY - 7 assessed: 09/19/23 Source: Developed by Drs. Emanuel Pablo, Shonda Griffith, Ethan Vieyra and colleagues, with an educational adonay from [employer]. Physical exam (Primary Care) Vital Signs: Last Vital Signs Pulse 57 12/25/23 09:59 BP 130/72 12/25/23 09:59 Pulse Ox 98 12/25/23 09:59 Oxygen Delivery Method Room Air 12/25/23 09:59 BMI result Body Mass Index 29.4 Tobacco/Smoking Status: Tobacco use Status Tobacco use date assessed 09/19/23 12/25/23 10:00 Patient Tobacco Use Status Never used Tobacco 12/25/23 10:00 e-Cigarette/Vaping Use Never Used 12/25/23 10:00 PHQ-9: PHQ-9 Score PHQ-9: Total score 8 12/25/23 10:27 Depression Screening Interpretation: Positive Thrive Assessment: Date of Thrive Assessment Date Thrive assessed 09/19/23 12/25/23 10:00 Const General: alert; No acute distress Eyes Conjunctivae: conjunctivae normal Resp Auscultation: clear to auscultation bilaterally Cardio Rate: regular rate Rhythm: regular rhythm GI Inspection: Yes normal to inspection Extrem General: Yes normal to inspection and No edema Assessment and Plan Assessment & Plan (1) Erythrocytosis: Code(s): D75.1 - Secondary polycythemia Plan: Patient follows up with Hematology-Oncology having intermittent phlebotomy (2) Overweight (BMI 25.0-29.9): Code(s): E66.3 - Overweight Plan: Diet and exercise (3) Hypercholesterolemia: Code(s): E78.00 - Pure hypercholesterolemia, unspecified Plan: Avoid fried foods, chicken skin, eggs, butter margarine, pastries and meat. Be it pork or beef they have a lot of cholesterol on rosuvastatin 40 mg once a day LDL goal of less than 70 and triglyceride of less than 150 advised to retest (4) GERD (gastroesophageal reflux disease): Comment: EGD August 2006 Code(s): K21.9 - Gastro-esophageal reflux disease without esophagitis Qualifiers: Esophagitis presence: without esophagitis Qualified Code(s): K21.9 - Gastro-esophageal reflux disease without esophagitis Plan: Avoid the foods that causes that usually spicy foods, tomato products, juices, coffee, soda and foods that your sensitive to. After eating do not lie down, allow 3-4 hours before in lie down. And keep the head of bed above 30 degrees to avoid the acid from going up. (5) Hypertension: Code(s): I10 - Essential (primary) hypertension Qualifiers: Hypertension type: essential hypertension Qualified Code(s): I10 - Essential (primary) hypertension Plan: Continue with blood pressure medication. Decrease salt intake and exercise on amlodipine 5 mg once a day metoprolol 25 mg twice a day (6) CAD (coronary artery disease): Comment: Cath 2019 shows nml coronaries Code(s): I25.10 - Atherosclerotic heart disease of [place] coronary artery without angina pectoris Qualifiers: Associated angina: without angina Coronary Disease-Associated Artery/Lesion type: [place] artery [place] vs. transplanted heart: [place] heart Qualified Code(s): I25.10 - Atherosclerotic heart disease of [place] coronary artery without angina pectoris Plan: Control the cholesterol, weight, blood pressure,on aspirin (7) Tubular adenoma of colon: Comment: 06/2020 Dr. Yen Code(s): D12.6 - Benign neoplasm of colon, unspecified Plan: Patient is referred to Gastroenterology (8) Pulmonary embolism: Comment: 2003 Dr. Hoyt, PFT negative September 2019 Code(s): I26.99 - Other pulmonary embolism without acute cor pulmonale Plan: Referral to Pulmonary (9) Constipation: Code(s): K59.00 - Constipation, unspecified Plan: Three rules for constipation 1. Diet need to have a high fiber diet less of meat 2. Increase oral fluids 3. Exercise Orders: Orders Complete Blood Count Auto Diff Today E78.00 - Pure hypercholesterolemia, unspecified Comprehensive Met. Panel Today E78.00 - Pure hypercholesterolemia, unspecified Lipid Panel Today E78.00 - Pure hypercholesterolemia, unspecified Hemoglobin A1c Today E78.00 - Pure hypercholesterolemia, unspecified Referrals Gastroenterology Referral D12.6 - Benign neoplasm of colon, unspecified Pulmonary Medicine Referral I26.99 - Other pulmonary embolism without acute cor pulmonale Medications: New sennosides-docusate sodium 8.6-50 mg (Senna Plus) 2 tab-caps (2 x 8.6-50 mg) PO BEDTIME PRN 60 tabs 4RF constipation 30 days K59.00 - Constipation, unspecified Coding Level of Care Code Est Pt Level 4 (09071) Diagnoses Erythrocytosis D75.1 Overweight (BMI 25.0-29.9) E66.3 Hypercholesterolemia E78.00 Gastroesophageal reflux disease without esophagitis K21.9 Esophagitis presence: without esophagitis Essential hypertension I10 Hypertension type: essential hypertension Coronary artery disease involving [place] coronary artery of [place] heart without angina pectoris I25.10 Associated angina: without angina Coronary Disease-Associated Artery/Lesion type: [place] artery [place] vs. transplanted heart: [place] heart Tubular adenoma of colon D12.6 Pulmonary embolism I26.99 Constipation K59.00
== END 2023-12-25 10:38 | disposition home or self-care (01) ==
PROVIDERS: PCP Internal Medicine; Visit Provider Internal Medicine
DX: D75.1 Secondary polycythemia (principal); I26.99 Other pulmonary embolism without acute cor pulmonale; E66.3 Overweight; E78.00 Pure hypercholesterolemia, unspecified; K21.9 Gastro-esophageal reflux disease without esophagitis; I10 Essential (primary) hypertension; I25.10 Atherosclerotic heart disease of native coronary artery without angina pectoris; D12.6 Benign neoplasm of colon, unspecified; K59.00 Constipation, unspecified
CPT/HCPCS: 99214

== ENCOUNTER 2024-01-18 11:19 | Outpatient (REF) | payer OTHER, SELFPAY ==
[2024-01-18 11:35] LABS: MANUAL DIFF FLAG NO
[2024-01-18 11:55] LABS: Basophils Absolute Auto 0.1 X10*3/uL (0.0-0.2); Basophils Percent Auto 0.8 % (0-2); Eosinophils Absolute Auto 0.3 X10*3/uL (0.0-0.4); Eosinophils Percent Auto 4.3 % (0-4); Hematocrit 50.5 % (42.0-52.0); Hemoglobin 17.8 g/dl (14.0-18.0); Imm Gran Abs Auto 0.02 X10*3/uL (0.00-0.03); Imm Gran Pct Auto 0.3 % (0.0-0.4); Lymphocytes Absolute Auto 2.4 X10*3/uL (1.2-4.9); Lymphocytes Percent Auto 31.3 % (20-40); Mean Corpuscular HGB Conc 35.2 g/dl (31.0-36.0); Mean Corpuscular Hemoglobin 31.9 pg (27.0-33.0); Mean Corpuscular Volume 90.5 fL (80.0-98.0); Mean Platelet Volume 10.6 fL (9.4-12.4); Monocytes Absolute Auto 0.6 X10*3/uL (0.1-1.2); Monocytes Percent Auto 7.9 % (2-11); Neutrophils Absolute Auto 4.3 x10*3/uL (2.0-8.3); Neutrophils Percent Auto 55.4 % (45-73); Platelet Count 177 X10*3/uL (160-400); Red Blood Count 5.58 X10*6/uL (4.60-5.80); White Blood Count 7.7 X10*3/uL (4.8-10.8)
[2024-01-18 12:02] LABS: Estimated Average Glucose 114 mg/dL; Hemoglobin A1c % 5.6 % (<6.0)
[2024-01-18 12:20] LABS: Alanine Aminotransferase 58 U/L (0-40); Albumin Level 4.7 g/dL (3.5-5.0); Alkaline Phosphatase 95 U/L (39-117); Anion Gap 13 (12-20); Aspartate Amino Transferase 46 U/L (5-37); Bilirubin Total 1.5 mg/dL (0.0-1.0); Blood Urea Nitrogen 16 mg/dL (9-16); Calcium 9.8 mg/dL (8.4-10.2); Carbon Dioxide 26 mmol/L (22-29); Chloride 104 mmol/L (96-108); Cholesterol 108 mg/dL (<200); Estimated Glomerular Filt Rate 58; Glucose Random 112 mg/dL (60-115); HDL Cholesterol 36 mg/dL (>40); LDL Cholesterol Calculated 58 mg/dL (<100); Potassium 3.4 mmol/L (3.3-5.1); Sodium 140 mmol/L (135-145); Total Protein 8.1 g/dL (6.5-8.0); Triglycerides 73 mg/dL (<150)
== END 2024-01-18 11:20 | disposition home or self-care (01) ==
LOC: HO.LAB 11:19
PROVIDERS: PCP Internal Medicine; Visit Provider Internal Medicine
DX: E78.00 Pure hypercholesterolemia, unspecified (principal)
CPT/HCPCS: 36415; 80053; 80061; 83036; 85025

== ENCOUNTER 2024-01-24 13:54 | Outpatient (REF) | payer OTHER, SELFPAY | END 2024-01-24 13:55 | disposition home or self-care (01) | LOC: HO.BBR 13:54 | PROVIDERS: PCP Internal Medicine; Visit Provider Internal Medicine Medical Oncology | DX: D75.1 Secondary polycythemia (principal) | CPT/HCPCS: 85018; 99195 ==

== ENCOUNTER 2024-02-27 13:25 | Outpatient (AMB) | payer OTHER, SELFPAY ==
[2024-02-27 13:26] VITALS: BP 130/86; PULSE 63; O2SAT 98; BMI 29.3
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
== END 2024-02-27 14:05 | disposition home or self-care (01) ==
PROVIDERS: PCP Internal Medicine
DX: M25.512 Pain in left shoulder (principal)
CPT/HCPCS: 99214

== ENCOUNTER 2024-04-30 13:49 | Outpatient (REF) | payer OTHER, SELFPAY | END 2024-04-30 13:50 | disposition home or self-care (01) | LOC: HO.BBR 13:49 | PROVIDERS: PCP Internal Medicine; Visit Provider Internal Medicine Medical Oncology | DX: D75.1 Secondary polycythemia (principal) | CPT/HCPCS: 85018; 99195 ==

== ENCOUNTER 2024-05-19 13:30 | Outpatient (AMB) | payer OTHER, SELFPAY ==
--- NOTE | 2024-05-19 13:52 | A.OFFPC_ITS ---
Vital Signs 05/19/24 13:54 05/19/24 14:31 Height 6 ft Weight 217 lb 8 oz BMI 29.5 BP 100/64 120/80 Blood Pressure Location Lt brachial Lt brachial Position Sitting Sitting Pulse 60 Pulse Source Pulse Oximeter Pulse Oximetry (%) 98 Oxygen Delivery Method Room Air Intake Visit Reasons: PE Intake Note: Patient is here today for a physical. Nutrition Consultant Required: No Theatre Instructor: Not Required per policy Accompanied by: Self / Same As Patient Allergies No Known Allergies [No Known Allergies*] Allergy (Verified 05/19/24 13:53) Medication List - Last Reconciled 05/19/24 by Delmy Quiroz MD amlodipine 5 mg PO DAILY aspirin 81 mg PO DAILY cyanocobalamin (vitamin B-12) 100 mcg PO DAILY metoprolol tartrate 25 mg PO BID omeprazole 20 mg PO QAM 90 days rosuvastatin 40 mg PO DAILY sennosides-docusate sodium 8.6-50 mg (Senna Plus) 2 tab-caps (2 x 8.6-50 mg) PO BEDTIME PRN 30 days triamcinolone acetonide 0.5% 1 appl topical BID Tobacco use date assessed: 05/19/24 Fall risk assessment: 1 Fall in past year Last assessed Fall Risk: 05/19/24 Dental Screening Dental Screen Date: 12/25/23 HPI PE HPI Details 64-year-old overweight male with a histo ry of hypercholesterolemia coronary artery disease GERD hypertension generalized anxiety disorder and history of pulmonary embolism coming in for physical exam last seen in February 2024. Patient's last colonoscopy was done in 2019. Review of the notes patient had an ER visit in November 2023 complained of abdominal and chest pain workup has shown is hepatic steatosis. states fell off chair back cortes, complains of dysphagia. complains of R side of chest and R leg numbness. [facility] Medical History (Updated 05/19/24 @ 18:58 by Delmy Quiroz MD) Encounter for annual physical examination excluding gynecological examination in a patient older than 17 years Renal calculus Erectile dysfunction Hypertension Protein S deficiency Hypercholesterolemia Pulmonary embolism CAD (coronary artery disease) Prostate CA Arthritis Polycythemia vera Hiatal hernia GERD (gastroesophageal reflux disease) Sleep apnea Hx of syncope Surgical History History of appendectomy History of inferior vena caval filter placement Hx of colonoscopy History of esophagogastroduodenoscopy (EGD) H/O prostatectomy Hx of cardiac cath Family History Father Medical history unknown Mother Diabetes Asthma Hypertension Brother Dialysis patient Sister Schizophrenia Sister Diabetes Chronic mental illness Other Mental health disorder Social History (Updated 05/19/24 @ 14:34 by Delmy Quiroz MD) Housing: Apartment Alcohol intake: current Alcohol intake frequency: 0-2 drinks per day Alcohol type: beer Comment: QOD 2 beers Patient Tobacco Use Status: Never used Tobacco Years Smoked: smoking marijuana e-Cigarette/Vaping Use: Never Used Second Hand Smoke Exposure: Yes Substance Use Type: Marijuana service: No Current occupational status: disabled Cognitive needs: No Hearing needs: No Vision needs: No Questionnaire Thrive Questionnaire Date Thrive assessed: 05/13/24 I am a: Patient What is your living situation today?: I have a steady place to live Within the past 12 months, did the food you bought not last and you didn't have the money to get more?: Often true Within the past 12 months, did you worry whether your food would run out before you got money to buy more?: Often true Do you have trouble paying for medicines?: Yes Do you have trouble getting transportation to medical appointments?: Yes Do you have trouble paying your heating and electricity bill?: Yes Do you have trouble taking care of your child, family member or friend?: I choose not to answer this question Do you have trouble with day-to-day activities such as bathing, preparing meals, shopping, managing finances, etc.?: Yes Are you currently unemployed and looking for a job?: I choose not to answer this question Are you interested in more education?: I choose not to answer this question Please select the resources that you would like help with: Housing/Detention, Food, Transportation and Utilities Currently or been in a relationship where the following occur: I choose not to answer THRIVE Score: 4 AUDIT C Alcohol Use Questionnaire (AUDIT-C) 1. How often do you have a drink containing alcohol?: 4 or more times a week 2. How many drinks containing alcohol do you have on a typical day when you are drinking?: 1 or 2 3. How often do you have six or more drinks on one occasion?: Never Total Score: 4 TINY-7 AMB Questionnaire TINY-7 Date TINY - 7 assessed: 05/19/24 Feeling nervous, anxious, or on edge: 3 = Nearly every day Not being able to stop or control worryin = Nearly every day Worrying too much about different things: 3 = Nearly every day Trouble relaxin = Nearly every day Being so restless that it is hard to sit still: 3 = Nearly every day Becoming easily annoyed or irritable: 3 = Nearly every day Feeling afraid as if something awful might happen: 3 = Nearly every day Total TINY-7 score (0-4 normal; 5-9 mild; 10-14 moderate; 15-21 severe): 21 Source: Developed by Drs. Emanuel Pablo, Shonda Griffith, Ethan Vieyra and colleagues, with an educational adonay from [employer]. Review of Systems Const Denies poor appetite and Denies weakness Eyes Denies no additional complaints ENT Reports Normal hearing present, Denies dizziness, Denies nasal congestion, Denies tinnitus and Denies sore throat Card Denies chest pain, Denies syncope, Denies rapid heart rate and Denies dyspnea Resp Denies cough and Denies dyspnea GI Denies change in stool character, Reports constipation, Denies diarrhea, Denies nausea and Denies vomiting Denies dysuria and Denies urinary frequency Neuro Reports Normal hearing present, Denies confusion, Denies dizziness, Denies syncope and Denies weakness Psych Denies confusion Physical exam (Primary Care) Vital Signs: Last Vital Signs Pulse 60 05/19/24 13:54 BP 120/80 05/19/24 14:31 Pulse Ox 98 05/19/24 13:54 Oxygen Delivery Method Room Air 05/19/24 13:54 BMI result Body Mass Index 29.5 Tobacco/Smoking Status: Tobacco use Status Tobacco use date assessed 05/19/24 05/19/24 13:59 Patient Tobacco Use Status Never used Tobacco 05/19/24 14:34 e-Cigarette/Vaping Use Never Used 05/19/24 14:34 Thrive Assessment: Date of Thrive Assessment Date Thrive assessed 05/13/24 05/19/24 13:59 Currently or been in a relationship where the following occur: I choose not to answer Const General: No confusion Orientation/consciousness: No confusion HENMT Head: Yes normocephalic Ears: external ears normal and TM's normal bilaterally Face and sinus: Yes normal facial exam Mouth: moist mucous membranes Throat: Yes tonsils normal Eyes Conjunctivae: conjunctivae normal Pupils: Equal, round and reactive pupils present and Pupil accommodation reflex normal Direct Ophthalmoscopy: normal light reflex Neck Neck: No lymphadenopathy Thyroid: Thyroid normal Chest Chest palpation & inspection: normal inspection of the chest Resp Effort & Inspection: normal respiratory effort and no audible wheezes Auscultation: clear to auscultation bilaterally, no crackles, no wheezes and lung sounds not diminished Cardio Rate: regular rate Rhythm: regular rhythm Peripheral pulses: radial pulses present and dorsalis pedis present GI Other: guaiac negative and no prostate Palpation (GI): no masses Auscultation: normal bowel sounds and normoactive bowel sounds Male General Exam: Yes normal external exam Skin General skin exam: no rashes or lesions noted Rashes: no rashes Neuro General: No confusion Cranial nerves: Yes Equal, round and reactive pupils present and Yes Normal hearing present Cognition (Neuro): normal cognition Gait exam (Neuro): Normal gait present Motor exam (neuro): 5/5 motor strength present throughout Deep tendon reflexes (DTR's): Right brachioradialis reflex intensity grade: 2+, Left brachioradialis reflex intensity grade: 2+, Right patellar reflex intensity grade: 2+ and Left patellar reflex intensity grade: 2+ Extrem General: No edema Office Procedures Flu Questionnaire Does the patient have a severe egg allergy?: No Does the patient have severe life threatening allergies?: No Does the patient have a fever or illness today?: No Has the patient ever had Guillain-Altair Syndrome?: No Has the patient ever had any past reaction to a flu shot?: No Immunizations Fluarix Triv [id number] (PF) 45 mcg (15 mcg x 3)/0.5 mL IM syringe Performing Provider: eDlmy Quiroz MD [facility] Administered by: Teena Lentz RN on 05/19/24 14:08 Dose Route Admin Location Dispensed Lot Number Expiration Date [facility] [employer] 0.5 mL IM Left Deltoid 0.5 mL [id number] 02/02/25 [id number] [employer] VIS Given Date VIS Provided VIS Publication Date 05/19/24 Single Vaccine 21 Eligibility Eligibility Date Funding Source Not [facility] Eligible 05/19/24 Private Coding Level of Care Code Est Pt Prev Care >65y(92666) Diagnoses Annual physical exam Z00.00 Hypercholesterolemia E78.00 Gastroesophageal reflux disease without esophagitis K21.9 Esophagitis presence: without esophagitis Essential hypertension I10 Hypertension type: essential hypertension Coronary artery disease involving [place] coronary artery of [place] heart without angina pectoris I25.10 Associated angina: without angina Coronary Disease-Associated Artery/Lesion type: [place] artery [place] vs. transplanted heart: [place] heart Generalized anxiety disorder F41.1 Erythrocytosis D75.1 Oropharyngeal dysphagia R13.12 Dysphagia type: oropharyngeal phase Hypersomnia G47.10 Right sided numbness R20.0 Assessment & Plan Assessment & Plan (1) Annual physical exam: Code(s): Z00.00 - Encounter for general adult medical examination without abnormal findings Category: Medical Plan: Patient is advised to eat healthy, keep well hydrated, keep active and have adequate sleep. (2) Hypercholesterolemia: Code(s): E78.00 - Pure hypercholesterolemia, unspecified Category: Medical Plan: Avoid fried foods, chicken skin, eggs, butter margarine, pastries and meat. Be it pork or beef they have a lot of cholesterol presently on rosuvastatin 40 mg once a day LDL goal of less than 70 and triglyceride of less than 150 (3) GERD (gastroesophageal reflux disease): Comment: EGD August 2006 Code(s): K21.9 - Gastro-esophageal reflux disease without esophagitis Category: Medical Qualifiers: Esophagitis presence: without esophagitis Qualified Code(s): K21.9 - Gastro-esophageal reflux disease without esophagitis Plan: Avoid the foods that causes that usually spicy foods, tomato products, juices, coffee, soda and foods that your sensitive to. After eating do not lie down, allow 3-4 hours before in lie down. And keep the head of bed above 30 degrees to avoid the acid from going up. (4) Hypertension: Code(s): I10 - Essential (primary) hypertension Category: Medical Qualifiers: Hypertension type: essential hypertension Qualified Code(s): I10 - Essential (primary) hypertension Plan: Continue with blood pressure medication. Decrease salt intake and exercise on amlodipine 5 mg once a day metoprolol 25 mg twice a day (5) CAD (coronary artery disease): Comment: Cath 2019 shows nml coronaries Code(s): I25.10 - Atherosclerotic heart disease of [place] coronary artery without angina pectoris Category: Medical Qualifiers: Associated angina: without angina Coronary Disease-Associated Artery/Lesion type: [place] artery [place] vs. transplanted heart: [place] heart Qualified Code(s): I25.10 - Atherosclerotic heart disease of [place] coronary artery without angina pectoris Plan: Control the cholesterol, weight, blood pressure, diabetes continue with aspirin 81 mg once a day (6) Generalized anxiety disorder: Code(s): F41.1 - Generalized anxiety disorder Category: Medical Plan: Stable (7) Erythrocytosis: Code(s): D75.1 - Secondary polycythemia Category: Medical Plan: Patient has routine therapeutic phlebotomy (8) Dysphagia: Code(s): R13.10 - Dysphagia, unspecified Category: Medical Qualifiers: Dysphagia type: oropharyngeal phase Qualified Code(s): R13.12 - Dysphagia, oropharyngeal phase Plan: Barium swallow requested (9) Hypersomnia: Code(s): G47.10 - Hypersomnia, unspecified Category: Medical Plan: Will retest for sleep apnea (10) Right sided numbness: Code(s): R20.0 - Anesthesia of skin Category: Medical Plan: Patient has a presentation having right sided chest and right leg numbness. With hypertension problem patient has been requested to have a CT scan of the head. Orders: Orders [place] upper GI series Today R13.10 - Dysphagia, unspecified RT home sleep study Today G47.10 - Hypersomnia, unspecified CT head/brain wo IV con Today R20.0 - Anesthesia of skin Influenza [id number] Immunization Today Z23 - Encounter for immunization [place] barium swallow Today R13.10 - Dysphagia, unspecified
[2024-05-19 13:54] VITALS: BP 100/64; PULSE 60; O2SAT 98; BMI 29.5
[2024-05-19 14:31] VITALS: BP 120/80
== END 2024-05-19 14:57 | disposition home or self-care (01) ==
PROVIDERS: PCP Internal Medicine; Visit Provider Internal Medicine
DX: Z00.00 Encounter for general adult medical examination without abnormal findings (principal); E78.00 Pure hypercholesterolemia, unspecified; K21.9 Gastro-esophageal reflux disease without esophagitis; I10 Essential (primary) hypertension; I25.10 Atherosclerotic heart disease of native coronary artery without angina pectoris; F41.1 Generalized anxiety disorder; D75.1 Secondary polycythemia; R13.12 Dysphagia, oropharyngeal phase; G47.10 Hypersomnia, unspecified; R20.0 Anesthesia of skin; Z23 Encounter for immunization

== ENCOUNTER → 2024-05-19 13:30 | Outpatient (BNVA) | payer OTHER, SELFPAY | PROVIDERS: PCP Internal Medicine; Visit Provider Internal Medicine | DX: Z00.01 Encounter for general adult medical examination with abnormal findings (principal); Z23 Encounter for immunization; E78.00 Pure hypercholesterolemia, unspecified; K21.9 Gastro-esophageal reflux disease without esophagitis; I10 Essential (primary) hypertension; I25.10 Atherosclerotic heart disease of native coronary artery without angina pectoris; F41.1 Generalized anxiety disorder; D75.1 Secondary polycythemia; R13.12 Dysphagia, oropharyngeal phase; G47.10 Hypersomnia, unspecified; R20.0 Anesthesia of skin | CPT/HCPCS: 90471; 90656; 96127; 99397 ==

== ENCOUNTER 2024-06-27 13:47 | Outpatient (REF) | payer OTHER, SELFPAY | END 2024-06-27 13:48 | disposition home or self-care (01) | LOC: HO.CT 13:47 | PROVIDERS: PCP Internal Medicine; Visit Provider Internal Medicine | DX: R20.0 Anesthesia of skin (principal) | CPT/HCPCS: 70450 ==

== ENCOUNTER → 2024-07-01 13:21 | Outpatient (REF) | payer OTHER, SELFPAY | LOC: HO.SL 13:21 | PROVIDERS: PCP Internal Medicine; Visit Provider Internal Medicine | DX: G47.10 Hypersomnia, unspecified (principal) | CPT/HCPCS: 95806 ==

== ENCOUNTER → 2024-07-02 13:35 | Outpatient (BNV) | payer OTHER, SELFPAY | PROVIDERS: PCP Internal Medicine; Visit Provider Internal Medicine | DX: R06.83 Snoring (principal); G47.10 Hypersomnia, unspecified | CPT/HCPCS: 95806 ==

== ENCOUNTER 2024-08-15 16:41 | Emergency (ER) | payer OTHER, SELFPAY ==
--- NOTE | ~2024-08-15 | XR_ITS ---
CLINICAL HISTORY: pain 3 views thoracic spine Comparison: None Findings: Normal alignment. No acute fractures or dislocation. Mild multilevel degenerative disc disease. IMPRESSION: No acute findings. This document has been electronically signed by: Anahi Quinonez MD on 08/15/2024 17:37:09
[2024-08-15 16:49] VITALS: BP 144/84; PULSE 84; RESP 16; TEMP 36.3; O2SAT 100; BMI 29.4
--- NOTE | 2024-08-15 16:49 | ED_ITS ---
HPI - Back Pain/Injury General Chief Complaint: Back Pain/Injury Stated Complaint: swollen, black and blue back Time Seen by Provider: 08/15/24 17:38 Source: patient, RN notes reviewed and old records reviewed Mode of arrival: ambulatory Limitations: no limitations History of Present Illness ED Provider: Huber HPI Narrative: 64-year-old male past medical history significant for PE not currently anticoagulated, polycythemia, coronary artery disease, hypertension, GERD presents for evaluation of back pain. Patient reports that he was ?bruising to my back. ? He reports that he had a fall down a staircase 3 years ago He reports he lost consciousness but was never seen for this He states that 8 months ago he fell out of his chair He has been having back pain ever since He went to [facility] on 08/07/2024 for abdominal pain and back pain He had abdominal CT scan that did not show any acute findings it was ultimately discharged He reports that today he is having similar pain however he now has ?bruising on my back and that is why I am here. ? Related Data Home Medications ?Medication ?Instructions ?Recorded ?Confirmed cyanocobalamin (vitamin B-12) 100 100 mcg PO DAILY 05/11/20 05/19/24 mcg tablet Previous Rx's ?Medication ?Instructions ?Recorded aspirin 81 mg tablet,delayed 81 mg PO DAILY #90 tabs 01/08/23 release amlodipine 5 mg tablet 5 mg PO DAILY #90 tabs 09/19/23 metoprolol tartrate 25 mg tablet 25 mg PO BID #180 tabs 09/19/23 rosuvastatin 40 mg tablet 40 mg PO DAILY #30 tabs 09/19/23 triamcinolone acetonide 0.5 % 1 appl topical BID #45 grams 09/19/23 topical cream sennosides 8.6 mg-docusate sodium 2 tab-cap (2 x 8.6-50 mg) PO 12/25/23 50 mg tablet (Senna Plus) BEDTIME PRN constipation 30 days #60 tabs omeprazole 20 mg capsule,delayed 20 mg PO QAM 90 days #90 caps 05/22/24 release cyclobenzaprine 5 mg tablet 5 mg PO TID PRN muscle spasm #30 08/15/24 tabs Allergies Allergy/AdvReac Type Severity Reaction Status Date / Time No Known Allergies Allergy Verified 08/15/24 16:51 [No Known Allergies*] Review of Systems Constitutional: Constitutional: Denies body ache(s), Denies chills and Denies fever(s) Eyes: Eyes: Denies blurry vision ENT: Denies vertigo Cardiovascular: Cardiovascular: Denies chest pain and Denies dyspnea Respiratory: Respiratory: Denies cough and Denies dyspnea Gastrointestinal: Gastrointestinal: Reports abdominal pain, Denies nausea and Denies vomiting Musculoskeletal: Musculoskeletal: Reports back pain, Denies arthralgias and Denies joint swelling Integumentary/Breasts: Skin/Breast: Denies rash Neurologic: Denies vertigo Psychiatric: Psychiatric: Denies anxiety [facility] Past Medical History Medical History (Updated 08/15/24 @ 19:04 by Greg Ngo) Encounter for annual physical examination excluding gynecological examination in a patient older than 17 years Renal calculus Erectile dysfunction Hypertension Protein S deficiency Hypercholesterolemia Pulmonary embolism CAD (coronary artery disease) Prostate CA Arthritis Polycythemia vera Hiatal hernia GERD (gastroesophageal reflux disease) Sleep apnea Hx of syncope Surgical History History of appendectomy History of inferior vena caval filter placement Hx of colonoscopy History of esophagogastroduodenoscopy (EGD) H/O prostatectomy Hx of cardiac cath Family History Family History Father Medical history unknown Mother Diabetes Asthma Hypertension Brother Dialysis patient Sister Schizophrenia Sister Diabetes Chronic mental illness Other Mental health disorder Social History Social History (Updated 05/19/24 @ 14:34 by Delmy Quiroz MD) Housing: Apartment Alcohol intake: current Alcohol intake frequency: holidays/special occasions only Alcohol type: beer Comment: QOD 2 beers Patient Tobacco Use Status: Never used Tobacco Years Smoked: smoking marijuana Smoked in Last 30 Days: No e-Cigarette/Vaping Use: Never Used Second Hand Smoke Exposure: Yes Use of substances other than those prescribed or required for medical reasons: No Substance Use Type: Marijuana Advance Directives: No Advance Directives Information Provided: Yes Do you have a plan to hurt others: No Plan service: No Current occupational status: disabled Cognitive needs: No Hearing needs: No Vision needs: No Physical Exam Vital Signs: Vital Signs: Last Vital Signs Temp 98.1 F 08/15/24 19:20 Pulse 71 08/15/24 19:20 Resp 18 08/15/24 19:20 BP 127/79 08/15/24 19:20 Pulse Ox 99 08/15/24 19:20 O2 Del Method Room Air 08/15/24 19:20 BMI result Body Mass Index 29.4 Const: General: healthy appearing, comfortable, no acute distress, alert and awake Nutritional Appearance: well nourished Orientation/consciousness: patient oriented x3 HEENT: Head: Yes normocephalic and Yes atraumatic Eyes: Eyelids: Yes eyelids normal Conjunctivae: conjunctivae normal Scl erae: sclerae normal Corneas: corneas normal Pupils: Equal, round and reactive pupils present EOM: EOMs intact bilaterally Neck: Neck: Yes full ROM Resp: Effort & Inspection: normal respiratory effort, able to speak in complete sentences and not labored GI: Inspection: No distended Palpation (GI): nontender Back/Spine/Pelvis: Other: Patient has no ecchymosis to his entire back. Has a scar in the right upper thoracic region. He has a small, about 3 cm nonmobile indurated mass in the right thoracic paraspinous region. Consistent with a dermoid cyst. He has no spinal tenderness. He has right lower thoracic paraspinous tenderness and left upper thoracic paraspinous tenderness. No lumbar tenderness, straight leg raise negative bilaterally Skin: General skin exam: elasticity normal Neuro: General: patient oriented x3 Cranial nerves: Yes Equal, round and reactive pupils present and Yes Bilaterally intact EOM present Cognition (Neuro): normal cognition Course Course Course Narrative: This is an RME performed by Luisa Berkowitz CNP: Additional HPI, ROS, PE not included below will be deferred to primary provider. Patient is a 64-year-old male who presents emergency department for evaluation. He is endorsing swelling and bruising diffusely throughout his entire back with numbness of the right lower extremity. Admits to a fall downstairs about 3 years ago which was never evaluated, subsequent fall 9 months ago. Although he does state he has been having pain in the back and numbness in the right leg for the past year. Reports he was seen at [facility] 08/06/2023 for chest pain and ?they ignored my back?. Reports he looked at his back and a mirror today and noted a lot of swelling lumps and bruises. Denies genitourinary symptoms. Exam: There is a single linear area to the right upper thoracic area of the back closest with a midline appears more consistent with an abrasion burn of some sort rather than true ecchymosis. there is notable TTP surrounding this area. I do not appreciate further areas of ecchymosis prominent swelling Medications Administered Discontinued Medications Generic Name Dose Route Start Last Admin Trade Name Freq PRN Reason Stop Dose Admin Cyclobenzaprine HCl 5 mg 08/15/24 19:03 08/15/24 19:12 Cyclobenzaprine Hcl 5 Mg Tablet PO 08/15/24 19:04 5 mg ONCE ONE Administration Medical Decision Making Medical Decision Making MDM Narrative: 64-year-old male past medical history as documented above presents for evaluation of acute on chronic back pain. He has had no recent injuries. He had a thoracic x-ray ordered which shows no vertebral fracture. His pain is reproducible on exam, vital signs are stable. He has no chest pain. He does have continued abdominal pain which she has had for over a week, we were able to view records from [facility], his CT scan dated 08/07/2024 did not show any acute intra abdominal pathology. The patient has no nausea vomiting, diarrhea. No fevers, chills. I do not see any indication for further emergent workup at this time. The patient's pain is most likely musculoskeletal in origin Differential Diagnosis Differential Diagnoses: The differential diagnosis associated with the presentation includes Muscle strain Sebaceous cyst Contusion Abdominal pain Biliary disease Gastritis Radiology Impression Discussion of test interpretation with radiology: I have reviewed the radiologist's reading. Radiologist Impression: Findings: Normal alignment. No acute fractures or dislocation. Mild multilevel degenerative disc disease. IMPRESSION: No acute findings. This document has been electronically signed by: Anahi Quinonez MD on 08/15/2024 17:37:09 Discharge Plan Discharge Clinical Impression: Back pain Patient Disposition: Home, Self-Care Instructions: Back Pain (ED) Additional Instructions: Your x-ray today was normal. I think your pain is most likely musculoskeletal in origin. You may benefit from outpatient physical therapy I recommend that you use Tylenol for pain. You may use cyclobenzaprine as needed for muscle spasms. This may make you drowsy, do not drink alcohol or drive after taking it Prescriptions: New cyclobenzaprine 5 mg tablet 5 mg PO TID PRN (Reason: muscle spasm) Qty: 30 0RF No Action omeprazole 20 mg capsule,delayed release(DR/EC) 20 mg PO QAM 90 Days Qty: 90 1RF cyanocobalamin (vitamin B-12) 100 mcg Tablet 100 mcg PO DAILY amlodipine 5 mg tablet 5 mg PO DAILY Qty: 90 3RF rosuvastatin 40 mg tablet 40 mg PO DAILY Qty: 30 9RF metoprolol tartrate 25 mg tablet 25 mg PO BID Qty: 180 2RF triamcinolone acetonide 0.5 % cream 1 appl topical BID Qty: 45 0RF sennosides-docusate sodium [Senna Plus] 8.6-50 mg tablet 2 tab-cap PO BEDTIME PRN (Reason: constipation) 30 Days Qty: 60 4RF aspirin 81 mg tablet,delayed release (DR/EC) 81 mg PO DAILY Qty: 90 3RF Interventions: ED Discharge Assessment Last Done: 08/15/24 19:20 Discharge Date/Time: 08/15/24 19:22 Print Language: [place]
--- OUTSIDE RECORDS SUMMARY | 2024-08-15 17:37 | XMS_ITS | Continuity of Care Document ---
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 Name Role Phone Po Delmy WOODRUFF Primary Care [id number] Date(s): 08/06/24 - 08/07/[address] [address]- Encounter Diagnosis Esophagitis(Final) - 08/07/24 Discharge Disposition: A-D/C Home Attending Physician: Salvador Segovia DO Admitting Physician: Salvador Segovia DO Referring Physician: Not on Staff, Referring MD Encounter Type: Disch ES Allergies, Adverse Reactions, Alerts No Known Allergies Immunizations Given and Recorded Vaccine Date Status Refusal Reason pneumococcal 23-valent vaccine 05/29/15 Given Medications acetaminophen 325 mg oral tablet = 650 mg, By Mouth, Every 4 hours, PRN Headache Pain , Mild, Temperature Greater than 100.5, 0 Refills, Maintenance, 09/13/14 3:33:33 PM EST, Tablet Start Date: 09/13/14 Status: Ordered Repeat number: 1 Adult Aspirin By Mouth, Every 4 hours, 0 Refills, Maintenance, 11/18/20 7:49:00 PM EDT, Partial fill upon patient request if the prescription is for a schedule II opioid drug. Start Date: 11/18/20 Status: Ordered Repeat number: 1 Amlodipine = 5 mg, By Mouth, Daily, 0 Refills, Maintenance, 11/18/20 7:49:00 PM EDT, Partial fill upon patient request if the prescription is for a schedule II opioid drug. Start Date: 11/18/20 Status: Ordered Repeat number: 1 aspirin 81 mg oral tablet 1 tablet = 81 mg, By Mouth, Daily, # 30 tablet, 0 Refills, Maintenance, 08/23/18 1:40:54 PM EST, Tablet Start Date: 08/23/18 Status: Ordered Quantity: 30.0 Unit: tablet Repeat number: 1 aspirin 81 mg oral tablet, chewable 81 mg, 1, tablet, Daily, Refills 0, Maintenance, 11/18/20 7:50:00 PM EDT, Partial fill upon patient request if the prescription is for a schedule II opioid drug. Start Date: 11/18/20 Status: Ordered Repeat number: 1 atorvastatin 40 mg oral tablet 1 tablet = 40 mg, By Mouth, Daily, 0 Refills, Maintenance, 11/18/20 7:51:00 PM EDT, Partial fill upon patient request if the prescription is for a schedule II opioid drug. Start Date: 11/18/20 Status: Ordered Repeat number: 1 Carafate 1 gm oral tablet 1 Gm, 1, tablet, By Mouth, 4 times a day, PRN, # 56 tablet, Refills 0, Tot. Refills 0, Maintenance,Indigestion, 08/07/24 9:53:00 AM EST, Route to Pharmacy Electronically, [id number], Partial fill upon patient request if the prescription is for a schedule II opioid drug., 183, cm, 08/06/24 21:16:00 EST, Height, 98.5, kg, 08/06/24 21:16:00 EST, Dry Weight Start Date: 08/07/24 Stop Date: 08/21/24 Status: Ordered Quantity: 56.0 Unit: tablet Repeat number: 1 famotidine 10 mg oral tablet 1 tablet = 10 mg, By Mouth, 2 times a day, PRN Indigestion, # 28 tablet, 0 Refills, Maintenance, 08/07/24 9:53:00 AM EST, Tablet, [email or web address] #[id number], Partial fill upon patient request if the prescription is for a schedule II opioid drug., 183, cm, 08/06/24 21:16:00 EST, Height, 98.5, kg, 08/06/24 21:16:00 EST, Dry Weight Start Date: 08/07/24 Stop Date: 08/21/24 Status: Ordered Quantity: 28.0 Unit: tablet Repeat number: 1 Fluoxetine = 20 mg, By Mouth, 0 Refills, Maintenance, 11/18/20 7:50:00 PM EDT, Partial fill upon patient request if the prescription is for a schedule II opioid drug. Start Date: 11/18/20 Status: Ordered Repeat number: 1 FLUoxetine 20 mg oral capsule 20 mg, 1, capsule, By Mouth, Daily, # 60 capsule, Refills 0, Maintenance, 08/17/17 5:01:23 PM EST Start Date: 08/17/17 Status: Ordered Quantity: 60.0 Unit: capsule Repeat number: 1 metoprolol 25 mg oral tablet 25 mg, 1, tablet, By Mouth, 2 times a day, # 60 tablet, Refills 0, Maintenance, 08/23/18 1:44:12 PM EST Start Date: 08/23/18 Status: Ordered Quantity: 60.0 Unit: tablet Repeat number: 1 omeprazole 20 mg oral enteric coated capsule 1 capsule = 20 mg, By Mouth, Daily, # 30 capsule, 0 Refills, Maintenance, 08/23/18 1:44:55 PM EST, EC Capsule Start Date: 08/23/18 Status: Ordered Quantity: 30.0 Unit: capsule Repeat number: 1 traMADol 50 mg oral tablet 0 Refills, Maintenance, 02/07/23 2:26:00 PM EDT, Partial fill upon patient request if the prescription is for a schedule II opioid drug. Start Date: 02/07/23 Status: Ordered Repeat number: 1 Vitamin B12 = 100 mcg, 0 Refills, Maintenance, 11/18/20 7:51:00 PM EDT, Partial fill upon patient request if theprescription is for a schedule II opioid drug. Start Date: 11/18/20 Status: Ordered Repeat number: 1 Results Radiology Reports * Exam Date Time Procedure Performing Provider Status 08/07/24 8:[address] Abd/Pelvis W/ IV Contrast Only Eitan Ware; Lazaro (Verified) Notes: (CT Abd/Pelvis W/ IV Contrast Only) Reason For Exam: Epigastric Abdominal Pain, History of alcohol abuse, atherosclerotic risk factors, evaluation for Pancreatitis, AAA;Other: RESULT: CT Abd/Pelvis W/ IV Contrast Only CT Abd/Pelvis W/ IV Contrast Only Hx of Present Illness: CP radiating down R leg x 1 year. Has seen PCP and is scheduled for CT scan.hx of afib on thinners. has not missed any doses.; Reason: Other:; Epigastric Abdominal Pain, History of alcohol abuse, atherosclerotic risk factors, evaluation for Pancreatitis, AAA; Clinical Question(s): Pancreatitis; AAA; Order Comment: TECHNIQUE: Spiral CT through the abdomen and pelvis with IV contrast formatted in 3 planes. 100 cc of Isovue 300 was administered intravenously. This study was performed without oral contrast. Weight-based protocol using automatic tube modulation was used to optimize exposure parameters. CTDIvol Body: 19.20 mGy, DLP Body: 1097 mGy*cm. COMPARISON: 09/02/2004 FINDINGS: The heart is normal in size. There is no pericardial effusion. The visualized lung bases are unremarkable. A 0.5 cm hypodensity within the left hepatic lobe is too small to characterize. The liver is otherwise unremarkable. The gallbladder, spleen, and adrenal glands are unremarkable. There is a stable fat density lesion within the pancreatic head measuring 0.3 cm (image 45 series 201). A second similar lesion within the neck measuring 0.5 cm (image 35) is also unchanged. No dilatation of the duct is seen. Symmetric renal contrast enhancement is demonstrated bilaterally. There are bilateral simple cysts with the largest in the interpolar right kidney measuring 6.7 cm. These do not require follow-up. Nohydronephrosis is present. The bladder is distended and unremarkable. A moderate size hiatal hernia is seen. The stomach is otherwise unremarkable. The small bowel and appendix are unremarkable. Scattered colonic diverticula are seen without wall thickening or mesenteric stranding to suggest the presence of diverticulitis. There is no bowel obstruction. There is no free air, free fluid, or lymphadenopathy. An IVC filter is seen. Degenerative disc disease within the spine is noted. IMPRESSION: There is no acute abnormality. WSN: [id number] Ordering Physician: Caleb Higgins Dictated By: Xenia De Guzman MD Dictated Date/Time: 08/07/24 9:05 am Reviewed By: Xenia De Guzman MD Signed By: Xenia De Guzman MD Signed Date/Time: 08/07/24 9:05 am Transcribed By: UCHE Transcribed Date/Time: 08/07/24 8:47 am * Exam Date Time Procedure Performing Provider Status 08/07/24 8:35 AM US RUQ Alberta Pete; Auth (Ve rified) Notes: (US RUQ) Reason For Exam: Abdominal Pain;Other: RESULT: US RUQ US RUQ Reason: Abdominal Pain; Clinical Question(s): Cholecystitis COMPARISON: 11/26/2023. FINDINGS: Liver: Diffusely echogenic parenchyma with focal sparing around the gallbladder. No suspicious lesion. Smooth hepatic contour. Main portal vein patent with normal hepatopetal direction of flow. Gallbladder: No gallstones. Normal wall thickness. No pericholecystic fluid. Negative Johnson sign. Biliary Tree: No intrahepatic or extrahepatic bile duct dilation is identified. Common duct measures: 0.6 cm. Pancreas: Partially obscured by overlying bowel gas. No abnormality in the visualized portions of the pancreas. Right kidney: 10.5 cm in length. Normal parenchymal echotexture and thickness. No hydronephrosis, stone or solid mass. A 7.2 x 5.5 x 5.7 cm cyst arises exophytically from the lateral interpolar region and contains low-level internal echoes or incomplete septations in the dependent portion. IMPRESSION: No sonographic evidence of cholelithiasis or acute cholecystitis. Echogenic liver likely representing hepatic steatosis. No suspicious liver lesion. Nonsimple 7.2 cm right renal cyst. Findings may represent a cyst with proteinaceous or hemorrhagic content, although incompletely characterized sonographically. If more definitive characterization isclinically warranted, correlation with nonemergent renal mass protocol CT or MRI could be considered. WSN: [id number] Ordering Physician: Caleb Higgins Dictated By: Tenzin Lentz MD Dictated Date/Time: 08/07/24 8:48 am Reviewed By: Tenzin Lentz MD Signed By: Tenzin Lentz MD Signed Date/Time: 08/07/24 8:48 am Transcribed By: UCHE Transcribed Date/Time: 08/07/24 8:44 am * Exam Date Time Procedure Performing Provider Status 08/06/24 10:37 PM Chest 2 Views Frontal and Lat Emery Foote; Auth (Verified) Notes: (Chest 2 Views Frontal and Lat) Reason For Exam: Chest Pain;Other: RESULT: Chest 2 Views Frontal and Lat Chest 2 Views Frontal and Lat Hx of Present Illness: CP radiating down R leg x 1 year. Has seen PCP and is scheduled for CT scan.Hx of Afib on thinners. Has not missed any doses.; Reason: Other:; Chest Pain; Clinical Question(s): Other: COMPARISON: 11/26/2023 FINDINGS: LINES AND TUBES: None. LUNGS AND PLEURA: Clear lungs. Normal pulmonary vascularity. No pleural effusion. No pneumothorax. HEART, MEDIASTINUM AND JOE: Heart is normal in size. Normal mediastinal and hilar contour. BONES AND SOFT TISSUES: No acute abnormality. IMPRESSION: No acute abnormality. WSN: [id number] Ordering Physician: Efraín Damon Dictated By: Myranda Thompson MD Dictated Date/Time: 08/06/24 10:38 p Reviewed By: Myranda Thompson MD Signed By: Myranda Thompson MD Signed Date/Time: 08/06/24 10:38 pm Transcribed By: UCHE Transcribed Date/Time: 08/06/24 10:38 pm Vital Signs Most recent to oldest [Reference Range]: 1 2 3 Height 183 cm (08/06/24 9:16 PM) Weight 98.5 kg (08/06/24 9:16 PM) Oxygen Saturation [94-100 %] 100 % (08/07/24 10:16 AM) 99 % (08/07/24 7:43 AM) 100 % (08/07/24 4:10 AM) Pulse Rate [55-90 bpm] 67 bpm (08/07/24 10:16 AM) 70 bpm (08/07/24 7:43 AM) 68 bpm (08/07/24 4:10 AM) Body Mass Index [18.5-24.99 kg/m2] 29.41 kg/m2 *H* (08/06/24 9:16 PM) Blood Pressure [90-138/55-84 mm Hg] 133/78mm Hg (08/07/24 10:16 AM) 140/94mm Hg *H* (08/07/24 7:43 AM) 136/93mm Hg (08/07/24 4:10 AM) Respiratory Rate [16-30 br/min] 18 br/min (08/07/24 10:16 AM) 16 br/min (08/07/24 7:43 AM) 18 br/min (08/07/24 4:10 AM) Temperature [96.8-100.4 DegF] 98.1 DegF (1/2/25 10:16 AM) 98.1 DegF (08/07/24 7:43 AM) 99.1 DegF (08/07/24 4:10 AM) Mode of Delivery (Oxygen) Room air (08/07/24 10:16 AM) Room air (08/07/24 7:43 AM) Room air (08/07/24 4:10 AM) Blood pressure sites Arm, right (08/07/24 10:16 AM) Arm, left (08/07/24 4:10 AM) Arm, left (08/07/24 1:39 AM) Temperature Route Oral (08/07/24 10:16 AM) Oral (08/07/24 7:43 AM) Oral (08/07/24 4:10 AM) Dry Weight 98.5 kg (08/06/24 9:16 PM) Weight Obtained Via Patient/family state d (08/06/24 9:16 PM) Dry Weight Obtained Via Patient/family s tated (08/06/24 9:16 PM) Social History Social History Type Response Smoking Status Never smoker entered on: 09/12/14 Sex Sex Representation Male (finding) EKG study * Event Display: EKG Authored Date: * Event Display: ECG 12-Lead Authored Date: Please click on pdf link to open report * Event Display: ECG 12-Lead Authored Date: Ventricular Rate: 63 BPM Atrial Rate: 63 BPM P-R Interval: 198 ms QRS Duration: 90 ms Q-T Interval: 420 ms QTC Calculation(Bazett): 429 ms P Carson: 33 degrees R Carson: -12 degrees T Carson: 76 degrees Normal sinus rhythm Minimal voltage criteria for LVH, may be normal variant ( R in aVL ) Nonspecific T wave abnormality Abnormal ECG When compared with ECG of 26-Nov-2023 16:01, No significant change was found Confirmed by Kirk Ruibo ([id number]) on 08/07/2024 7:10:37 AM Alicia: Kirk Rubio Patient Care team information Care Team Personnel Name: Elysia Vegas RN Position: S RN Member Role: Primary Care Nurse Name: Po MD , Lorenver Position: Reference Physician Member Role: PCP Address: [address] [place] [address] Telecom: Care Team Related Persons Name: DEVORAH MCGOWAN Name: SUJEY WEBSTER Insurance Providers Guarantor name: COY Health Plan Information #: 1 Payer: [facility] CARE ALLIANCE/ONE CARE Member Number: [id number] Policy Number: NA Group Number: [facility] Health Plan Information #: 2 Payer: [employer] Member Number: [id number] Policy Number: NA Group Number: NA
--- OUTSIDE RECORDS SUMMARY | 2024-08-15 17:37 | XMS_ITS | Patient Health Record ---
Author Organization [facility] Address [address] [place] [address] Care Team Providers Care Garnisher Name Role Phone Po Delmy WOODRUFF Primary Care Provider Emanuel Ruffin Unavailable [phone] REASON FOR REFERRAL No Information MEDICATIONS Medication SIG (Take, Route, Frequency, Duration) Notes Start Date End Date Status FLUoxetine HCl 20 MG TAKE 1 CAPSULE BY M OUTH ONCE DAILY EVERY MORNING Oral for 90 Active Aspirin Adult Low Strength 81 MG TK 1 T PO QD Oral for 90 Act ekaterina Metoprolol Tartrate 25 MG TAKE 1 TABLET BY MOUTH TWICE A DAY WITH FOOD Oral for 90 Active amLODIPine Besylate 5 MG TAKE 1 TABLET B Y MOUTH ONCE DAILY Oral for 90 Active Atorvastatin Calcium 20 MG TK 1 T PO QD Oral for 90 Active Omeprazole 20 MG TAKE 1 CAPSULE BY MO UTH EVERY DAY for 30 Active Vitamin B12 100 MCG as directed Orally Active IMMUNIZATIONS Vaccine Route Administration Date Status Comme nts Influenza Unknown 04/06/2019 Administered SOCIAL HISTORY Tobacco Use: Social History Observation Description Date Details (start date - stop date) Never Smoker NA - NA Sex Assigned At : Social History Observation Description Sex Assigned At Unknown Tobacco Use/Smoking Question Answer Notes Patient is a nonsmoker Alcohol Screen Question Answer Notes Did you have a drink contain ing alcohol in the past year? Yes How often did you have a dri nk containing alcohol in the past year? Monthly or less (1 point) How many drinks did you have on a typical day when you were drinking in the past year? 1 or 2 drinks (0 point) How often did you have 6 or more drinks on one occasion in the past year? Never (0 point) Points 1 Interpretation Negative PROBLEMS Problem Type ICD Code Onset Dates Problem Status W/U Status Risk SNOMED Code Notes Problem Encounter for screening for malignant neoplasm of colon (Z12.11) Active confirmed 757006982 Problem Long-term use of aspirin therapy (Z79.82) Active confirmed 387480896 Problem Preprocedural examination (Z01.818) Active confirmed 082178284622441 Problem Gastroesophageal reflux disease without esophagitis (K21.9) Active confirmed 634189649 Problem Hiatal hernia (K44.9) Active confirmed 13475280 Encounters Encounter Location Date Provider Diagnosis [facility] [address] [place] [address] 04/04/2024 Emanuel Buenrostro PLAN OF TREATMENT Future Test Test Name Order Date COLONOSCOPY 12/25/2019 Next Appt Details Provider Name:Emanuel Buenrostro , 08/20/2024 01:00:00 PM, [address], [address], [place], [address], Insurance Providers Payer Name Payer Address Payer Phone Subscriber Number Group Number Insured Name Patient Relationship to Insured Coverage Start Date Coverage End Date [facility] [address] [place] [address] [id number] ANGE WEBSTER Self - patient is the insured MEDICAID OF [employer] [address] [place] [address] [id number] ANGE WEBSTER Self - patient is the insured MEDICAL (GENERAL) HISTORY Medical History History ICD Code Polyneuropathy Polycythemia vera--sees Dr. Collazo--occa sional phlebotomy Hypertension Elevated cholesterol Depression Pulmonary embolus--previously on Coumadi n Denies [place],DM,CVA,Lung disease,renal dise ase Sleep apnea--not using a CPAP CAD with stent x 2 in 2003-no [place] Colonoscopy in 2005 with a nonadenomatou s polyp GERD-EGD in 2006 with a large HH--no eso phagitis, no Yeh's Surgical History Surgery Date(Month/Year) Prostatectomy for prostate cancer in 200 5 Appendectomy
--- OUTSIDE RECORDS SUMMARY | 2024-08-15 17:37 | XMS_ITS ---
Author Organization [facility] Address [address] [place] [address] Care Team Providers Care Counselor Education Professor Name Role Phone Delmy Quirzo MD Primary Care Provider Emanuel Ruffin [phone] REASON FOR VISIT Patient presents today for a colon screening Encounters Encounter Location Date Provider Diagnosis [facility] [address] [place] [address] 04/04/2024 Emanuel Buenrostro PLAN OF TREATMENT Next Appt Details Provider Name:Emanuel Buenrostro , 08/20/2024 01:00:00 PM, [address], [address], [place], [address],
[2024-08-15] MEDS: Cyclobenzaprine HCl 5 MG TABLET PO (19:12)
[2024-08-15 19:16] VITALS: BP 127/79; PULSE 71; RESP 18; TEMP 36.7; O2SAT 99
--- NOTE | 2024-08-15 19:19 | PC.NURSE ---
this rn assumed care of pt @ 1900 pt medicated according to mar for 03/15 pain pt ambulatory at discharge pt calm and cooperative pt verbalized understanding of discharge plan
[2024-08-15 19:20] VITALS: BP 127/79; PULSE 71; RESP 18; TEMP 36.7; O2SAT 99
== END 2024-08-15 19:22 | disposition home or self-care (01) ==
PROVIDERS: Emergency Provider Emergency Medicine; PCP Internal Medicine
DX: M54.6 Pain in thoracic spine (principal); M54.50 Low back pain, unspecified; Z79.899 Other long term (current) drug therapy
CPT/HCPCS: 72072; 99284

== ENCOUNTER → 2024-08-15 16:59 | Outpatient (BNV) | payer OTHER, SELFPAY | PROVIDERS: PCP Internal Medicine; Visit Provider Radiology Diagnostic Radiology | DX: M54.6 Pain in thoracic spine (principal) | CPT/HCPCS: 72072 ==

== ENCOUNTER 2024-08-19 13:08 | Outpatient (REF) | payer OTHER, SELFPAY ==
--- OUTSIDE RECORDS SUMMARY | 2024-08-19 15:21 | XMS_ITS ---
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
--- OUTSIDE RECORDS SUMMARY | 2024-08-19 15:22 | XMS_ITS | Patient Health Record ---
Author Organization [facility] Address [address] [place] [address] Care Team Providers Care Mill Set Up Name Role Phone Po Delmy WOODRUFF Primary Care Provider Emanuel Ruffin Unavailable [phone] REASON FOR REFERRAL No Information MEDICATIONS Medication [...] malignant neoplasm of colon (Z12.11) Active confirmed [id number] Problem Long-term use of aspirin therapy (Z79.82) Active confirmed 317241262 Problem Preprocedural examination (Z01.818) Active confirmed [id number] Problem Gastroesophageal reflux disease without esophagitis (K21.9) Active confirmed 874643474 Problem Hiatal hernia (K44.9) Active confirmed 10539764 Encounters Encounter Location Date Provider Diagnosis [facility] [address] [place] [address] 04/04/2024 Emanuel Buenrostro PLAN OF TREATMENT Future Test Test Name Order Date COLONOSCOPY 12/25/2019 Next Appt Details Provider Name:Emanuel Buenrostro , 08/20/2024 01:00:00 PM, [address], [address], [place], [address], Insurance Providers Payer Name Payer Address Payer Phone Subscriber Number Group Number Insured Name Patient Relationship to Insured Coverage Start Date Coverage End Date [facility] [address] [place] [address] [id number] ANGE WEBSTER Self - patient is the insured MEDICAID OF [employer] [address] [place] [address] [id number] ANGE WEBSTER Self - patient is the insured MEDICAL (GENERAL) HISTORY Medical History History ICD Code Polyneuropathy Polycythemia vera--sees Dr. Collazo--occa sional phlebotomy Hypertension Elevated cholesterol Depression Pulmonary embolus--previously on Coumadi n Denies [place],DM,CVA,Lung disease,renal dise ase Sleep apnea--not using a CPAP CAD with stent x 2 in 2003-no [place] Colonoscopy in 2005 with a nonadenomatou s polyp GERD-EGD in 2006 with a large HH--no eso phagitis, no Yeh's Surgical History Surgery Date(Month/Year) Prostatectomy for prostate cancer in 200 5 Appendectomy
== END 2024-08-19 13:09 | disposition home or self-care (01) ==
LOC: HO.BBR 13:08
PROVIDERS: PCP Internal Medicine; Visit Provider Internal Medicine Medical Oncology
DX: D75.1 Secondary polycythemia (principal)
CPT/HCPCS: 85018; 99195

== ENCOUNTER 2024-08-20 11:00 | Outpatient (AMB) | payer OTHER, SELFPAY ==
--- NOTE | 2024-08-20 11:06 | A.OFFPC_ITS ---
Vital Signs 08/20/24 11:08 Height 6 ft Weight 212 lb 2 oz BMI 28.8 BP 110/70 Blood Pressure Location Lt brachial Position Sitting Pulse 66 Pulse Source Pulse Oximeter Temp 97.1 F Temp Source Skin Pulse Oximetry (%) 98 Oxygen Delivery Method Room Air Intake Visit Reasons: [facility] 08/06 passed out Intake Note: Patient is here to follow-up after a visit the emergency department at [facility] on 08/06/24 Copy Lathe Operator Required: No Scientist Electronics: Not Required per policy Accompanied by: Self / Same As Patient Allergies No Known Allergies [No Known Allergies*] Allergy (Verified 08/20/24 11:08) Medication List - Last Reconciled 08/20/24 by Shea Huber PA-C amlodipine 5 mg PO DAILY aspirin 81 mg PO DAILY cyanocobalamin (vitamin B-12) 100 mcg PO DAILY cyclobenzaprine 5 mg PO TID PRN metoprolol tartrate 25 mg PO BID omeprazole 20 mg PO QAM 90 days rosuvastatin 40 mg PO DAILY sennosides-docusate sodium 8.6-50 mg (Senna Plus) 2 tab-caps (2 x 8.6-50 mg) PO BEDTIME PRN 30 days triamcinolone acetonide 0.5% 1 appl topical BID Tobacco use date assessed: 08/20/24 Fall risk assessment: No Falls in past year Last assessed Fall Risk: 08/20/24 Dental Screening Dental Screen Date: 08/20/24 Did you have a dental visit in the last 12 months?: No Did you have a dental problem in the last 6 months where you did not have access to dental care?: No Was dental information given to patient?: No HPI [facility] 08/06 passed out HPI Details 64-year-old male with past medical histo ry of hypercholesterolemia, GERD, hypertension, coronary artery disease, and history of pulmonary embolism last seen by Dr. Quiroz 05/2024 coming in for hospital follow up. In review of the notes, patient was seen in [facility] 08/06/2024 for epigastric pain radiating to the left side of the chest wall which resolved with Maalox, famotidine and Carafate. CT abdomen and pelvis negative did find moderate size hiatal hernia, abdominal ultrasound normal and labs normal with mild elevation in liver tests. Patient diagnosed with esophagitis and discharged home with Carafate and famotidine to follow up with GI. Patient is also seen in [facility] 08/15/2024 for back pain x-ray normal recommending outpatient physical therapy and given muscle relaxer. Patient tells us today he continues to have back pain and has not been set up with physical therapy. The back pain does improve with the muscle relaxer. This morning he woke up with dizziness states he has not had any water and only a light snack for food today. Denies any chest pain, shortness of breath, changes or. He also mentions he has not yet seen a GI specialist and although he was referred to 1 last year has not made an appointment. [facility] Medical History Encounter for annual physical examination excluding gynecological examination in a patient older than 17 years Renal calculus Erectile dysfunction Hypertension Protein S deficiency Hypercholesterolemia Pulmonary embolism CAD (coronary artery disease) Prostate CA Arthritis Polycythemia vera Hiatal hernia GERD (gastroesophageal reflux disease) Sleep apnea Hx of syncope Surgical History History of appendectomy History of inferior vena caval filter placement Hx of colonoscopy History of esophagogastroduodenoscopy (EGD) H/O prostatectomy Hx of cardiac cath Family History Father Medical history unknown Mother Diabetes Asthma Hypertension Brother Dialysis patient Sister Schizophrenia Sister Diabetes Chronic mental illness Other Mental health disorder Social History Housing: Apartment Alcohol intake: current Alcohol intake frequency: holidays/special occasions only Alcohol type: beer Comment: QOD 2 beers Patient Tobacco Use Status: Never used Tobacco Years Smoked: smoking marijuana e-Cigarette/Vaping Use: Never Used Second Hand Smoke Exposure: Yes Substance Use Type: Marijuana service: No Current occupational status: disabled Cognitive needs: No Hearing needs: No Vision needs: No Questionnaire PHQ-9 Over the last 2 weeks, how often have you been bothered by any of the following problems? 1. Little interest or pleasure in doing things: not at all 2. Feeling down, depressed, or hopeless: nearly every day 3. Trouble falling or staying asleep, or sleeping too much: more than half the days 4. Feeling tired or having little energy: more than half the days 5. Poor appetite or overeating: more than half the days 6. Feeling bad about yourself - or that you are a failure or have let yourself or your family down: not at all 7. Trouble concentrating on things, such as reading the newspaper or watching television: several days 8. Moving or speaking so slowly that other people could have noticed. Or the opposite - being so fidgety or restless that you have been moving around a lot more than usual: several days 9. Thoughts that you would be better off or of hurting yourself in some way: not at all Total score: 11 Depression Screening Interpretation: Positive Depression Screening Done: Yes Source: Developed by Drs. Emanuel Pablo, Shonda Griffith, Ethan Vieyra and colleagues, with an educational adonay from [employer]. Thrive Questionnaire Date Thrive assessed: 08/20/24 AUDIT C Alcohol Use Questionnaire (AUDIT-C) 1. How often do you have a drink containing alcohol?: 4 or more times a week 2. How many drinks containing alcohol do you have on a typical day when you are drinking?: 1 or 2 Total Score: 4 TINY-7 AMB Questionnaire TINY-7 Date TINY - 7 assessed: 08/20/24 Feeling nervous, anxious, or on edge: 3 = Nearly every day Not being able to stop or control worryin = Not at all Worrying too much about different things: 0 = Not at all Trouble relaxin = More than half the days Being so restless that it is hard to sit still: 0 = Not at all Becoming easily annoyed or irritable: 0 = Not at all Feeling afraid as if something awful might happen: 0 = Not at all Total TINY-7 score (0-4 normal; 5-9 mild; 10-14 moderate; 15-21 severe): 5 Source: Developed by Drs. Emanuel Pablo, Ethan Jj and colleagues, with an educational adonay from [employer]. Review of Systems Const Denies body aches, Denies chills, Denies fever(s), Denies headache(s) and Denies poor appetite Eyes Reports no additional complaints ENT Denies dysphagia, Denies dizziness, Denies headache(s) and Denies odynophagia Card Denies chest pain, Denies syncope, Denies edema, Denies irregular heart rhythm, Denies lightheadedness and Denies dyspnea Resp Denies cough and Denies dyspnea GI Reports abdominal pain, Denies constipation, Denies dysphagia, Reports heartburn, Denies diarrhea, Denies nausea, Denies odynophagia and Denies v omiting Reports no additional complaints Musc Reports no additional complaints and Denies abnormal gait Skin/Breast Reports system reviewed and no additional complaints, except as documented Neuro Denies abnormal gait, Denies dizziness, Denies syncope and Denies headache(s) Psych Reports no additional complaints Physical exam (Primary Care) Vital Signs: Last Vital Signs Temp 97.1 F 08/20/24 11:08 Pulse 66 08/20/24 11:08 BP 110/70 08/20/24 11:08 Pulse Ox 98 08/20/24 11:08 Oxygen Delivery Method Room Air 08/20/24 11:08 BMI result Body Mass Index 28.8 Tobacco/Smoking Status: Tobacco use Status Tobacco use date assessed 08/20/24 08/20/24 11:12 Patient Tobacco Use Status Never used Tobacco 08/20/24 11:12 e-Cigarette/Vaping Use Never Used 08/20/24 11:12 PHQ-9: PHQ-9 Score PHQ-9: Total score 11 08/20/24 11:15 Depression Screening Interpretation: Positive Thrive Assessment: Date of Thrive Assessment Date Thrive assessed 08/20/24 08/20/24 11:12 Const General: cooperative, healthy appearing, comfortable and no acute distress Orientation/consciousness: patient oriented x3 HENMT Head: Yes normocephalic Ears: hearing grossly normal bilaterally General nose exam: Normal external nose present Eyes General: appearance normal, both eyes and all related structures Conjunctivae: conjunctivae normal Neck Neck: Yes full ROM and Yes no lymphadenopathy Resp Effort & Inspection: normal respiratory effort Auscultation: clear to auscultation bilaterally, no crackles, no rales, no rhonchi and no wheezes Cardio Rate: regular rate Rhythm: regular rhythm GI Palpation (GI): Soft to palpation, not firm, Tenderness to palpation present (GI) in the epigastrum, no guarding and not rigid Skin General skin exam: no rashes or lesions noted Neuro General: patient oriented x3 Gait exam (Neuro): Normal gait present Extrem General: Yes normal to inspection, Yes full ROM and No edema Psych Affect: normal affect Attitude: cooperative Insight: Good insight present (Psych) Judgement: Good judgement present (Psych) Coding Level of Care Code Est Pt Level 4 (81554) Diagnoses Back pain M54.9 Tubular adenoma of colon D12.6 Overweight (BMI 25.0-29.9) E66.3 Gastroesophageal reflux disease without esophagitis K21.9 Esophagitis presence: without esophagitis Epigastric pain R10.13 Dizziness R42 Assessment & Plan Assessment & Plan (1) Back pain: Code(s): M54.9 - Dorsalgia, unspecified Category: Medical Plan: Patient complaining of continued back pain despite the use of Tylenol and ibuprofen and muscle relaxer. Was recommended to have physical therapy but has not heard from physical therapist. Referral placed to PT today for evaluation and treatment. (2) Tubular adenoma of colon: Comment: 06/2020 Dr. Buenrostro Code(s): D12.6 - Benign neoplasm of colon, unspecified Category: Medical Plan: Patient was referred to Gastroenterology last year and has not heard from the office. Updated referral today advised patient to reach out if he does not receive a phone call. (3) Overweight (BMI 25.0-29.9): Code(s): E66.3 - Overweight Category: Medical Plan: Healthy diet and regular exercise is encouraged. (4) GERD (gastroesophageal reflux disease): Comment: EGD August 2006 Code(s): K21.9 - Gastro-esophageal reflux disease without esophagitis Category: Medical Qualifiers: Esophagitis presence: without esophagitis Qualified Code(s): K21.9 - Gastro-esophageal reflux disease without esophagitis Plan: Avoid trigger foods such as citrus, tomato products, soda, caffeine, spicy foods and other foods that may be irritating to your stomach. Avoid laying flat 3-4 hours after eating and elevate the head of the bed 30 degrees to prevent acid from moving into the esophagus. Continue on omeprazole 20 mg (5) Epigastric pain: Code(s): R10.13 - Epigastric pain Category: Medical Plan: Patient complaining of continued intermittent epigastric pain. Pain has not changed or worsened since ED visit and states this is a chronic concern for him. He is due to undergo barium swallow later this month and have a follow up with Dr. Quiroz at that time. Advised patient to continue taking omeprazole and may use Pepcid or Tums as needed for breakthrough symptoms. Referral placed to GI as well. (6) Dizziness: Code(s): R42 - Dizziness and giddiness Category: Medical Plan: Patient complaining of dizziness that began earlier today. States he has not had any water today and only had a light snack for food. Denies any chest pain, shortness of breath, vision changes, lightheadedness or any other symptom. Advised patient to continue to monitor symptoms and if it persists or worsens to reach out to the office or present to the ED for evaluation. Also encouraged patient to schedule regular meals and have plenty of water intake. Plan This note was constructed using voice recognition software. While every effort has been made to ensure accuracy and dope house operator helper, still areas may have been included sometimes these areas may affect the content or meeting of the given symptoms. Total time spent caring for the patient today was 20 minutes. This includes time spent before the visit reviewing the chart, time spent during the visit, and time spent after the visit and documentation. Orders: Referrals Gastroenterology Referral D12.6 - Benign neoplasm of colon, unspecified
[2024-08-20 11:08] VITALS: BP 110/70; PULSE 66; TEMP 36.2; O2SAT 98; BMI 28.8
== END 2024-08-20 11:39 | disposition home or self-care (01) ==
PROVIDERS: PCP Internal Medicine
DX: M54.9 Dorsalgia, unspecified (principal); D12.6 Benign neoplasm of colon, unspecified; E66.3 Overweight; K21.9 Gastro-esophageal reflux disease without esophagitis; R10.13 Epigastric pain; R42 Dizziness and giddiness

== ENCOUNTER → 2024-08-20 11:00 | Outpatient (BNVA) | payer OTHER, SELFPAY | PROVIDERS: PCP Internal Medicine | DX: M54.9 Dorsalgia, unspecified (principal); D12.6 Benign neoplasm of colon, unspecified; E66.3 Overweight; K21.9 Gastro-esophageal reflux disease without esophagitis; R10.13 Epigastric pain; R42 Dizziness and giddiness | CPT/HCPCS: 99212 ==

== ENCOUNTER 2024-08-29 07:50 | Outpatient (REF) | payer OTHER, SELFPAY ==
--- NOTE | ~2024-08-29 | FL_ITS ---
EXAMINATION: XR FLUOROSCOPY UPPER GI WITH AIR CLINICAL INFORMATION: Dysphagia COMPARISON: None TECHNIQUE: Fluoroscopic air contrast upper GI examination was performed utilizing standard techniques with thin and thick barium and effervescent granules. Numerous spot images were obtained. FINDINGS: Lateral cine images of the oropharynx and hypopharynx demonstrate normal swallow mechanism with normal epiglottic inversion and soft palate elevation. No tracheal penetration, glottic or subglottic aspiration identified. No nasopharyngeal reflux present. Hypopharyngeal structures appear normal without evidence of mass or diverticulum. No significant cricopharyngeal achalasia is present. There is multilevel degenerative changes throughout the cervical spine. Dual and single contrast images of the esophagus demonstrate a patulous esophagus, with a contour, and mucosal pattern. No evidence of stricture, mass, or ulcerations identified. Esophageal peristalsis is mildly disorganized. A moderate-sized type I hiatal hernia is present. Significant gastroesophageal reflux seen up to the thoracic inlet. Dual contrast and single contrast images of the stomach demonstrated normal contour. There are multiple tiny foci of contrast pooling in the fundus and body of the stomach that may represent small mucosal erosions. No masses are seen. Contrast freely passed into the gastric antrum and duodenal bulb without delay. Single and air-contrast images of the duodenal bulb demonstrate no abnormality. The duodenal sweep has a normal appearance, course, and mucosal fold appearance. The imaged proximal jejunum has a normal fold pattern and caliber. FLUOROSCOPY TIME: 3 minutes 36 seconds Number of Spot Images: 8 Number of Cine: 16 DOSE AREA PRODUCT: 1163 uGy-m2 (microgray-meter squared) FL/FL upper GI w air w Ba Swallow IMPRESSION: 1. Patulous esophagus with mildly disorganized peristalsis consistent with esophageal dysmotility. 2. Moderate-sized type I hiatal hernia with severe gastroesophageal reflux. 3. Multiple tiny foci of contrast pooling in the fundus and body of the stomach that may represent small mucosal ulcerations. Recommend correlation with EGD. 4. Multilevel degenerative changes noted throughout the cervical spine. This procedure was performed by Greg Doll PA-C, and supervised by Dr. Hamilton Electronically signed by: Royr Hamilton MD 08/29/2024 05:04 PM [facility]
== END 2024-08-29 07:51 | disposition home or self-care (01) ==
LOC: HO.XRAY 07:50
PROVIDERS: PCP Internal Medicine; Visit Provider Internal Medicine
DX: R13.10 Dysphagia, unspecified (principal); E78.00 Pure hypercholesterolemia, unspecified; K21.9 Gastro-esophageal reflux disease without esophagitis; I10 Essential (primary) hypertension; I25.10 Atherosclerotic heart disease of native coronary artery without angina pectoris; F41.1 Generalized anxiety disorder; D12.6 Benign neoplasm of colon, unspecified; I26.99 Other pulmonary embolism without acute cor pulmonale; R20.0 Anesthesia of skin; R32 Unspecified urinary incontinence; R10.9 Unspecified abdominal pain; G47.10 Hypersomnia, unspecified
CPT/HCPCS: 74246; 99212

== ENCOUNTER → 2024-08-29 07:50 | Outpatient (BNV) | payer OTHER, SELFPAY | PROVIDERS: PCP Internal Medicine; Visit Provider Physician Assistant Surgical | DX: R13.10 Dysphagia, unspecified (principal) | CPT/HCPCS: 74246; 74248 ==

== ENCOUNTER 2024-08-29 15:17 | Outpatient (AMB) | payer OTHER, SELFPAY ==
--- NOTE | 2024-08-29 15:26 | MHC.PC.OV ---
Vital Signs 08/29/24 15:27 Height 6 ft Weight 220 lb 4 oz BMI 29.9 BP 100/72 Blood Pressure Location Lt brachial Position Sitting Pulse 62 Pulse Source Pulse Oximeter Temp 97.1 F Temp Source Skin Pulse Oximetry (%) 97 Oxygen Delivery Method Room Air Intake Visit Reasons: 3 Month F/U Intake Note: Patient is here to follow up on CAD, HTN, Hypercholesterolemia. Corporate Giving Manager Required: No Inventory Control/Shipping Receiving: Not Required per policy Accompanied by: Self / Same As Patient Allergies No Known Allergies [No Known Allergies*] Allergy (Verified 08/29/24 15:27) Tobacco use date assessed: 08/29/24 Fall risk assessment: No Falls in past year Last assessed Fall Risk: 08/29/24 Dental Screening Dental Screen Date: 08/20/24 HPI 3 Month F/U HPI Details 1 year ago abdominal swelling, no n no v, feverish constipation, , no blood in stools, , has urinary incontinence, numbness of leg R > L , no swelling, no cough and breathing, states this myers continuous, , no MYERS, , complains of flank pain. The patient is a 64-year-old male presenting with persistent numbness in the lower extremities. He reports the numbness began approximately one year ago, initially affecting his right leg more significantly. He describes the numbness as a consistent, 24/7 sensation that involves his whole leg and toes, and is accompanied by a sensation of tightness. There is an absence of swelling, but there have been instances of shortness of breath, dizziness, and tightness around the heart. The patient also discusses a constant feeling of tightness and swelling in the stomach, coupled with intermittent fevers and constipation. He denies having any nausea, vomiting, or diarrhea and has no control over urination, reporting leakage dependent on his sitting position. The back pain is noted in the upper back area and is exacerbated when walking. He has a history of visiting the emergency department due to these symptoms but felt it was unhelpful. The patient experiences episodes of dizziness and has difficulty sleeping, sometimes waking up gasping for air. Despite previous blood work that showed normal results, the symptoms have persisted. [facility] Medical History (Updated 08/29/24 @ 15:52 by Delmy Quiroz MD) Back pain Epigastric pain Dizziness Encounter for annual physical examination excluding gynecological examination in a patient older than 17 years Renal calculus Erectile dysfunction Hypertension Protein S deficiency Hypercholesterolemia Pulmonary embolism CAD (coronary artery disease) Prostate CA Arthritis Polycythemia vera Hiatal hernia GERD (gastroesophageal reflux disease) Sleep apnea Hx of syncope Surgical History History of appendectomy History of inferior vena caval filter placement Hx of colonoscopy History of esophagogastroduodenoscopy (EGD) H/O prostatectomy Hx of cardiac cath Family History Father Medical history unknown Mother Diabetes Asthma Hypertension Brother Dialysis patient Sister Schizophrenia Sister Diabetes Chronic mental illness Other Mental health disorder Social History Housing: Apartment Alcohol intake: current Alcohol intake frequency: holidays/special occasions only Alcohol type: beer Comment: QOD 2 beers Patient Tobacco Use Status: Never used Tobacco Years Smoked: smoking marijuana e-Cigarette/Vaping Use: Never Used Second Hand Smoke Exposure: Yes Substance Use Type: Marijuana service: No Current occupational status: disabled Cognitive needs: No Hearing needs: No Vision needs: No Questionnaire Thrive Questionnaire Date Thrive assessed: 08/20/24 TINY-7 AMB Questionnaire TINY-7 Date TINY - 7 assessed: 08/20/24 Source: Developed by Drs. Emanuel Pablo, Shonda Griffith, Ethan Vieyra and colleagues, with an educational adonay from [employer]. Physical exam (Primary Care) Vital Signs: Last Vital Signs Temp 97.1 F 08/29/24 15:27 Pulse 62 08/29/24 15:27 BP 100/72 08/29/24 15:27 Pulse Ox 97 08/29/24 15:27 Oxygen Delivery Method Room Air 08/29/24 15:27 BMI result Body Mass Index 29.9 Tobacco/Smoking Status: Tobacco use Status Tobacco use date assessed 08/29/24 08/29/24 15:32 Patient Tobacco Use Status Never used Tobacco 08/29/24 15:32 e-Cigarette/Vaping Use Never Used 08/29/24 15:32 Thrive Assessment: Date of Thrive Assessment Date Thrive assessed 08/20/24 08/29/24 15:32 Const General: alert; No acute distress Eyes Conjunctivae: conjunctivae normal Resp Auscultation: clear to auscultation bilaterally Cardio Rate: regular rate Rhythm: regular rhythm GI Inspection: Yes normal to inspection Extrem General: Yes normal to inspection and No edema Coding Level of Care Code Est Pt Level 4 (53320) Complex EM visit Add On G2211 Diagnoses Hypercholesterolemia E78.00 Gastroesophageal reflux disease without esophagitis K21.9 Esophagitis presence: without esophagitis Essential hypertension I10 Hypertension type: essential hypertension Coronary artery disease involving torres martinez coronary artery of torres martinez heart without angina pectoris I25.10 Associated angina: without angina Coronary Disease-Associated Artery/Lesion type: torres martinez artery [place] vs. transplanted heart: torres martinez heart Generalized anxiety disorder F41.1 Tubular adenoma of colon D12.6 Pulmonary embolism I26.99 Bilateral leg numbness R20.0 Urinary incontinence R32 Flank pain R10.9 Hypersomnia G47.10 Assessment & Plan Assessment & Plan (1) Hypercholesterolemia: Code(s): E78.00 - Pure hypercholesterolemia, unspecified Category: Medical (2) GERD (gastroesophageal reflux disease): Comment: EGD August 2006 Code(s): K21.9 - Gastro-esophageal reflux disease without esophagitis Category: Medical Qualifiers: Esophagitis presence: without esophagitis Qualified Code(s): K21.9 - Gastro-esophageal reflux disease without esophagitis (3) Hypertension: Code(s): I10 - Essential (primary) hypertension Category: Medical Qualifiers: Hypertension type: essential hypertension Qualified Code(s): I10 - Essential (primary) hypertension (4) CAD (coronary artery disease): Comment: Cath 2018 shows nml coronaries Code(s): I25.10 - Atherosclerotic heart disease of torres martinez coronary artery without angina pectoris Category: Medical Qualifiers: Associated angina: without angina Coronary Disease-Associated Artery/Lesion type: torres martinez artery [place] vs. transplanted heart: torres martinez heart Qualified Code(s): I25.10 - Atherosclerotic heart disease of torres martinez coronary artery without angina pectoris (5) Generalized anxiety disorder: Code(s): F41.1 - Generalized anxiety disorder Category: Medical (6) Tubular adenoma of colon: Comment: 06/[address] Dr. Buenrostro Code(s): D12.6 - Benign neoplasm of colon, unspecified Category: Medical (7) Pulmonary embolism: Comment: 2003 Dr. Hoyt, PFT negative September 2019 Code(s): I26.99 - Other pulmonary embolism without acute cor pulmonale Category: Medical (8) Bilateral leg numbness: Code(s): R20.0 - Anesthesia of skin Category: Medical (9) Urinary incontinence: Code(s): R32 - Unspecified urinary incontinence Category: Medical (10) Flank pain: Code(s): R10.9 - Unspecified abdominal pain Category: Medical (11) Hypersomnia: Code(s): G47.10 - Hypersomnia, unspecified Category: Medical Plan - Obtain further diagnostic testing to assess the numbness in the lower extremities, including a nerve conduction study to determine if the issue is localized or linked to a spinal origin. - Conduct blood work to reassess kidney function given the urinary issues and check for metabolic contributors to neurological symptoms. - Arrange for spinal x-ray focusing on the lumbar region to evaluate potential structural causes. - Refer to neurology for further evaluation upon clarification of nerve involvement to pursue potential treatments. - Continue monitoring the patient's symptoms of constipation and urinary incontinence and consider further gastrointestinal evaluation if symptoms persist or worsen. - Discuss with the patient potential management strategies for existing back pain and consider introducing physical therapy or analgesics after further evaluation of spinal imaging results. - Address sleep disturbances related to muscle relaxants and assess for potential sleep disorders with a referral to a sleep specialist if warranted. Orders: Orders NE nerve conduction velocity Today R20.0 - Anesthesia of skin Complete Blood Count Auto Diff Today R32 - Unspecified urinary incontinence Comprehensive Met. Panel Today R32 - Unspecified urinary incontinence Free T4 (Free Thyroxine) Today R32 - Unspecified urinary incontinence Lipid Panel Today E78.00 - Pure hypercholesterolemia, unspecified, R32 - Unspecified urinary incontinence Erythrocyte Sedimentation Rate Today R32 - Unspecified urinary incontinence Vitamin B12 and Folate Today R32 - Unspecified urinary incontinence Reticulocyte Count Today R32 - Unspecified urinary incontinence C Reactive Protein Today R32 - Unspecified urinary incontinence XR lumbar spine 2-3V Today R20.0 - Anesthesia of skin NE electromyogram (EMG) Today R20.0 - Anesthesia of skin UA CC w/rflx Micro + Cult Today R30.0 - Dysuria, R32 - Unspecified urinary incontinence Thyroid Stimulating Hormone Today R32 - Unspecified urinary incontinence Hemoglobin A1c Today R32 - Unspecified urinary incontinence Ferritin Today R32 - Unspecified urinary incontinence IRON PROFILE Today R32 - Unspecified urinary incontinence Referrals Sleep Medicine Referral G47.10 - Hypersomnia, unspecified
[2024-08-29 15:27] VITALS: BP 100/72; PULSE 62; TEMP 36.2; O2SAT 97; BMI 29.9
--- OUTSIDE RECORDS SUMMARY | 2024-08-29 16:20 | XMS_ITS ---
Author Organization [facility] Address [address] [place] [address] Care Team Providers Care Director Of Valuation Name Role Phone Po Delmy WOODRUFF Primary Care Provider Emanuel Ruffin [phone] REASON FOR VISIT Patient presents today for a colon screening Encounters Encounter Location Date Provider Diagnosis [facility] [address] [place] [address] 04/04/2024 Emanuel Buenrostro PLAN OF TREATMENT Next Appt Details Provider Name:Emanuel Buenrostro , 02/25/2025 01:40:00 PM, [address], [address], [place], [address],
--- OUTSIDE RECORDS SUMMARY | 2024-08-29 16:20 | XMS_ITS | Clinical Summary ---
Author Organization [facility] it Address [address] [place] [address] Care Team Providers Care Head Of Data Name Role Phone Unavailable Primary Care Provider Unavailabl e Surgical History Surgery Date Site/Laterality Comments APPENDECTOMY PROCEDURE: CT APPENDEC INDICATED PURPOSE OTH MAJOR PX NOT SPX PROSTATECTOMY PROCEDURE: PROSTATECTOMY; COMMENT: 2004 Family History Medical History Relation Name Comments Blindness Neg Hx Cataracts Neg Hx Glaucoma Neg Hx Macular degeneration Neg Hx Strabismus Neg Hx Relation Name Status Comments Brother 1 Alive Brother 2 Alive Brother 3 Alive Father Alive Mother Alive Sister 1 Alive Sister 2 Alive Sister 3 Alive Sister 4 Alive Social History Tobacco Use Types Packs/Day Years Used Date Smoking Tobacco: Never Smokeless Tobacco: Never Alcohol Use Standard Drinks/Week Comments No 0 (1 standard drink = 0.6 oz pur e alcohol) Sex and Gender Information Value Date Recorded Sex Assigned at Not on file Gender Identity Not on file Sexual Orientation Not on file Obstetrics History Plan of Treatment Health Maintenance Due Date Last Done Comments DTaP,Tdap,and Td Vaccines (1 - Tdap) 1978 Zoster Vaccines (1 of 2) 2009 Pneumococcal Vaccine: 65+ Years (1 of 1 - PCV) 2024 COVID-19 Vaccine (1 - 2023- season) 2024 Influenza Vaccine (#1) 2024 5, 06/29/2014, 04/14/2013, Additional history exists RSV Immunization Patients 60+ Years Old (1 - 1-dose 75+ series) 2034 HIB Vaccines Aged Out No longer eligi ble based on patient's age to complete this topic HPV Vaccines Aged Out No longer eligi ble based on patient's age to complete this topic Hepatitis A Vaccines Aged Out No long er eligible based on patient's age to complete this topic Hepatitis B Vaccines Aged Out No long er eligible based on patient's age to complete this topic IPV Vaccines Aged Out No longer eligi ble based on patient's age to complete this topic MMR Vaccines Aged Out No longer eligi ble based on patient's age to complete this topic Meningococcal ACWY Vaccine Aged Out N o longer eligible based on patient's age to complete this topic Pneumococcal Vaccine: Pediatrics (0 to 5 Years) and At-Risk Patients (6 to 64 Years) Aged Out No longer eligible based on patient's age to complete this topic RSV Immunization Patients Under 20 months Aged Out No longer eligible based on patient's age to complete this topic Varicella Vaccines Aged Out No longer eligible based on patient's age to complete this topic
--- OUTSIDE RECORDS SUMMARY | 2024-08-29 16:21 | XMS_ITS ---
Author Organization [facility] Address [address] [place] [address] Care Team Providers Care Bible Worker Name Role Phone Po Delmy WOODRUFF Primary Care Provider Emanuel Ruffin [phone] REASON FOR VISIT Pt no show Encounters Encounter Location Date Provider Diagnosis [facility] [address] [place] [address] 08/20/2024 Emanuel Buenrostro PLAN OF TREATMENT Next Appt Details Provider Name:Emanuel Buenrostro , 02/25/2025 01:40:00 PM, [address], [address], [place], [address],
--- OUTSIDE RECORDS SUMMARY | 2024-08-29 16:21 | XMS_ITS ---
Author Organization [facility] Address [address] [place] [address] Care Team Providers Care Freelance Interpreter/Translator Name Role Phone Po Delmy WOODRUFF Primary Care Provider Emanuel Ruffin [phone] REASON FOR VISIT colon screening Encounters Encounter Location Date Provider Diagnosis [facility] [address] [place] [address] 08/20/2024 Emanuel Buenrostro PLAN OF TREATMENT Next Appt Details Provider Name:Emanuel Buenrostro , 02/25/2025 01:40:00 PM, [address], [address], [place], [address],
--- OUTSIDE RECORDS SUMMARY | 2024-08-29 16:21 | XMS_ITS | Patient Health Record ---
Author Organization [facility] Address [address] [place] [address] Care Team Providers Care Thermodynamicist Name Role Phone Po Delmy WOODRUFF Primary Care Provider Emanuel Ruffin [phone] REASON FOR REFERRAL No Information MEDICATIONS Medication [...] malignant neoplasm of colon (Z12.11) Active confirmed 303714247 Problem Long-term use of aspirin therapy (Z79.82) Active confirmed 788416225 Problem Preprocedural examination (Z01.818) Active confirmed [id number] Problem Gastroesophageal reflux disease without esophagitis (K21.9) Active confirmed 232517158 Problem Hiatal hernia (K44.9) Active confirmed [id number] Encounters Encounter Location Date Provider Diagnosis [facility] [address] [place] [address] 04/04/2024 Emanuel Buenrostro [facility] [address] [place] [address] 08/20/2024 Emanuel Buenrostro [facility] [address] [place] [address] 08/20/2024 Emanuel Buenrostro PLAN OF TREATMENT Future Test Test Name Order Date COLONOSCOPY 12/25/2019 Next Appt Details Provider Name:Emanuel Childs Buenrostro , 02/25/2025 01:40:00 PM, [address], [address], [place], [address], Insurance Providers Payer Name Payer Address Payer Phone Subscriber Number Group Number Insured Name Patient Relationship to Insured Coverage Start Date Coverage End Date [facility] [address] [place] [address] [id number] ANGE WEBSTER Self - patient is the insured MEDICAID OF [facility] [address] [place] [phone] [id number] ANGE WEBSTER Self - patient is the insured MEDICAL (GENERAL) HISTORY Medical History History ICD Code Polyneuropathy Polycythemia vera--sees Dr. Collazo--occa sional phlebotomy Hypertension Elevated cholesterol Depression Pulmonary embolus--previously on Coumadi n Denies [place],DM,CVA,Lung disease,renal dise ase Sleep apnea--not using a CPAP CAD with stent x 2 in 2003-no [place] Colonoscopy in 2005 with a nonadenomatou s polyp GERD-EGD in 2006 with a large HH--no eso phagitis, no Eyh's Surgical History Surgery Date(Month/Year) Prostatectomy for prostate cancer in 200 5 Appendectomy
== END 2024-08-29 15:56 | disposition home or self-care (01) ==
PROVIDERS: PCP Internal Medicine; Visit Provider Internal Medicine
DX: E78.00 Pure hypercholesterolemia, unspecified (principal); K21.9 Gastro-esophageal reflux disease without esophagitis; I10 Essential (primary) hypertension; I25.10 Atherosclerotic heart disease of native coronary artery without angina pectoris; F41.1 Generalized anxiety disorder; D12.6 Benign neoplasm of colon, unspecified; I26.99 Other pulmonary embolism without acute cor pulmonale; R20.0 Anesthesia of skin; R32 Unspecified urinary incontinence; R10.9 Unspecified abdominal pain; G47.10 Hypersomnia, unspecified

== ENCOUNTER 2024-09-08 10:42 | Outpatient (AMB) | payer OTHER, SELFPAY ==
[2024-09-08 11:27] VITALS: BP 130/82; PULSE 59; O2SAT 98; BMI 29.4
--- NOTE | 2024-09-08 11:27 | A.OFFVIS_ITS ---
Vital Signs 09/08/24 11:27 Height 6 ft Weight 217 lb BMI 29.4 BP 130/82 Blood Pressure Location Rt brachial Position Sitting Pulse 59 Pulse Source Pulse Oximeter Pulse Oximetry (%) 98 Oxygen Delivery Method Room Air Intake Visit Reasons: INP-Hypersomnia Chief Of Internal Medicine Required: No Accompanied by: Self / Same As Patient Allergies No Known Allergies [No Known Allergies*] Allergy (Verified 09/08/24 11:30) Medication List - Last Reconciled 09/08/24 by Lanny Marin PA-C amlodipine 5 mg PO DAILY aspirin 81 mg PO DAILY cyanocobalamin (vitamin B-12) 100 mcg PO DAILY cyclobenzaprine 5 mg PO TID PRN gabapentin 200 mg (2 x 100 mg) PO BEDTIME MDD 200mg magnesium oxide 400 mg PO DAILY MDD 400mg metoprolol tartrate 25 mg PO BID omeprazole 20 mg PO QAM 90 days pyridoxine (vitamin B6) 250 mg PO DAILY MDD 250MDD rosuvastatin 40 mg PO DAILY sennosides-docusate sodium 8.6-50 mg (Senna Plus) 2 tab-caps (2 x 8.6-50 mg) PO BEDTIME PRN 30 days sumatriptan succinate 50 mg orally; triamcinolone acetonide 0.5% 1 appl topical BID Do you need a note to return to daycare/school/sports/work: No HPI Comments Details: 64 year old male referred to us by PCP for sleep evaluation. He goes to bed late at midnight and wakes up at 6:30am. He gets up 1x for the bathroom but multiple awakenings. He has difficulty sleeping through night, has lots of pain, and feels saliva coming up to the throat when laying flat. RLS: He has to move his legs to get comfortable, R>L, due to numbness, tingling, cramps and spasms, sometimes jumps out of the bed at night to straighten the legs. He has morning headaches, daily, lasting 20-30min, around the eyes and frontotemporal to L. sided pain, like an electric shock-like pain with photophobia, photophonia, denies sensitivity to smells, vision gets distorted, blurriness, he feels dizzy like room is spinning. Denies nausea, vomiting, floaters, flashing lights, he takes tylenolol and it improves a bit. His memory is poor at baseline, he forgets tasks and misses medications, appointments, and needs to take notes or easily forgets. Diet is okay, but he eats many snacks. His mood is not good, feels depressed, and anxious, denies self harm. Denies use of alcohol, edible, MJ or cigarettes. [facility] Medical History Back pain Epigastric pain Dizziness Encounter for annual physical examination excluding gynecological examination in a patient older than 17 years Renal calculus Erectile dysfunction Hypertension Protein S deficiency Hypercholesterolemia Pulmonary embolism CAD (coronary artery disease) Prostate CA Arthritis Polycythemia vera Hiatal hernia GERD (gastroesophageal reflux disease) Sleep apnea Hx of syncope Surgical History History of appendectomy History of inferior vena caval filter placement Hx of colonoscopy History of esophagogastroduodenoscopy (EGD) H/O prostatectomy Hx of cardiac cath Family History Father Medical history unknown Mother Diabetes Asthma Hypertension Brother Dialysis patient Sister Schizophrenia Sister Diabetes Chronic mental illness Other Mental health disorder Social History Housing: Apartment Alcohol intake: current Alcohol intake frequency: holidays/special occasions only Alcohol type: beer Comment: QOD 2 beers Patient Tobacco Use Status: Never used Tobacco Years Smoked: smoking marijuana e-Cigarette/Vaping Use: Never Used Second Hand Smoke Exposure: Yes Substance Use Type: Marijuana service: No Current occupational status: disabled Cognitive needs: No Hearing needs: No Vision needs: No Review of Systems Const All systems reviewed & are unremarkable except as noted in HPI and below Physical Exam Vital Signs: Last Vital Signs Pulse 59 09/08/24 11:27 BP 130/82 09/08/24 11:27 Pulse Ox 98 09/08/24 11:27 Oxygen Delivery Method Room Air 09/08/24 11:27 BMI result Body Mass Index 29.4 Const General: cooperative, comfortable and tired appearing Nutritional Appearance: average body habitus and overweight Orientation/consciousness: patient oriented x3 HEENT Face and sinus: Yes normal facial exam and Yes face symmetric Teeth and gingiva: other ([place] score of 3) Eyes Pupils: Equal, round and reactive pupils present Neck Neck: Yes other (limited ROM on Flexion ) Resp Effort & Inspection: normal respiratory effort and able to speak in complete sentences Neuro General: patient oriented x3 and moves all extremities Cranial nerves: Yes CN's II-XII intact bilaterally, Yes Facial sensation i ntact/muscles of mastication intact, Yes Equal, round and reactive pupils present, Yes Normal accommodation reflex present, Yes Bilaterally intact EOM present, Yes Nystagmus not present, Yes Normal facial strength present, Yes Midline tongue present, Yes Ability to bilaterally rotate head present and Yes Ability to bilaterally elevate shoulders present Gait exam (Neuro): Normal gait present Motor exam (neuro): 5/5 motor strength present throughout and Normal motor muscle tone present throughout Deep tendon reflexes (DTR's): Right triceps reflex intensity grade: 2+, Left triceps reflex intensity grade: 2+, Rt Biceps (C5, C6): 2+, Left biceps reflex intensity grade: 2+, Right brachioradialis reflex intensity grade: 2+, Left brachioradialis reflex intensity grade: 2+, Right patellar reflex intensity grade: 2+ and Left patellar reflex intensity grade: 2+ Psych Thought process: Normal thought process present Thought content: Normal thought content present Results Reviewed Results Reviewed: FL/FL upper GI w air w Ba Swallow IMPRESSION: 1. Patulous esophagus with mildly disorganized peristalsis consistent with esophageal dysmotility. 2. Moderate-sized type I hiatal hernia with severe gastroesophageal reflux. 3. Multiple tiny foci of contrast pooling in the fundus and body of the stomach that may represent small mucosal ulcerations. Recommend correlation with EGD. 4. Multilevel degenerative changes noted throughout the cervical spine. ED note Aug 2024 Esophagitis Moderate sized hiatal hernia and Alcoholic Use Disorder Jul 2024 : HST AHI was 3.7/ Lowest O2 was 85% and normal limits Assessment & Plan Assessment & Plan (1) Hypersomnia: Code(s): G47.10 - Hypersomnia, unspecified Category: Medical (2) Fatigue due to sleep pattern disturbance: Code(s): R53.83 - Other fatigue; G47.9 - Sleep disorder, unspecified Category: Medical (3) RLS (restless legs syndrome): Code(s): G25.81 - Restless legs syndrome Category: Medical (4) Headache around the eyes: Code(s): R51.9 - Headache, unspecified Category: Medical Plan Daytime fatigue : will have him evaluated with a Polysomnography RLS: Gabapentin 200mg PO daily at bedtime. Muscle cramps will start Magnesium 400mg PO daily at bedtime Numbness and tingling in legs bilaterally will start B6 250mg PO daily at bedtime Daily morning Headaches: Sumatriptan 50mg PO with the onset of migraine, may take one additional tablet 2 hours after first dose if the headache does not abort. Not to exceed 4 tablets in 24 hour period. Migraine cap, and peppermint oil on temples as need. Sleep Hygiene: Establish a regimented bedtime, dark room, cool room, no devices in bed. No fluids 2 hours prior to bed. No caffeinated products. Orders: Orders RT PSG in-lab sleep study Today G47.10 - Hypersomnia, unspecified, G47.9 - Sleep disorder, unspecified, R53.83 - Other fatigue Vitamin D 25-OH Total Today G47.9 - Sleep disorder, unspecified, R53.83 - Other fatigue TSH reflex Free T4 Today G47.9 - Sleep disorder, unspecified, R53.83 - Other fatigue Complete Blood Count no Diff Today G47.9 - Sleep disorder, unspecified, R53.83 - Other fatigue Comprehensive Met. Panel Today G47.9 - Sleep disorder, unspecified, R53.83 - Other fatigue Hemoglobin A1c Today G47.9 - Sleep disorder, unspecified, R53.83 - Other fatigue Vitamin B12 and Folate Today G47.9 - Sleep disorder, unspecified, R53.83 - Other fatigue Methylmalonic Acid Today G47.9 - Sleep disorder, unspecified, R53.83 - Other fatigue Homocysteine Today G47.9 - Sleep disorder, unspecified, R53.83 - Other fatigue Medications: New magnesium oxide 400 mg PO DAILY 30 tabs 3RF fatigue MDD 400mg gabapentin 200 mg (2 x 100 mg) PO BEDTIME 30 caps 1RF Restless legs MDD 200mg G25.81 - Restless legs syndrome pyridoxine (vitamin B6) 250 mg PO DAILY 30 tabs 3RF RLS MDD 250MDD G25.81 - Restless legs syndrome sumatriptan succinate 50 mg orally; 14 tabs 0RF headaches Coding Level of Care Code Est Pt Level 4 (18800) Diagnoses Hypersomnia G47.10 Fatigue due to sleep pattern disturbance R53.83; G47.9 RLS (restless legs syndrome) G25.81 Headache around the eyes R51.9 Time Spent (min) 30 Comment Worsening Sleep Questionnaire Difficulty falling asleep: Yes Difficulty staying asleep?: Yes Number of arousals: >4 Snoring: Yes Witnessed apneas: Yes Gasping arousals: Yes Nocturia: No GERD: Yes Vivid dreams: Yes Acting out dreams: Yes Abnormal behavior in sleep: Yes Abnormal movements in sleep: Yes Morning headaches: Yes Excessive daytime sleepiness: Yes Daytime naps: No Restless legs: Yes Hallucinations: No Sleep paralysis: No Drop attacks: Yes Sleep Study: Yes CPAP: No
--- OUTSIDE RECORDS SUMMARY | 2024-09-08 11:35 | XMS_ITS | Clinical Summary ---
Author Organization [facility] it Address [address] [place] [address] Care Team Providers Care Director Of Business Continuity Name Role Phone Unavailable Primary Care Provider Unavailabl e Surgical History Surgery Date Site/Laterality Comments APPENDECTOMY PROCEDURE: [place] APPENDEC INDICATED PURPOSE OTH MAJOR PX NOT [...] of 1 - PCV) 2024 COVID-19 Vaccine ( - 2023- season) 2024 Influenza Vaccine (#1) [...]
== END 2024-09-08 12:34 | disposition home or self-care (01) ==
PROVIDERS: PCP Internal Medicine; Visit Provider Physician Assistant Medical
DX: G47.10 Hypersomnia, unspecified (principal); R53.83 Other fatigue; G47.9 Sleep disorder, unspecified; G25.81 Restless legs syndrome; R51.9 Headache, unspecified
CPT/HCPCS: 99214

== ENCOUNTER → 2024-09-08 10:42 | Outpatient (BNVA) | payer OTHER, SELFPAY | PROVIDERS: PCP Internal Medicine; Visit Provider Physician Assistant Medical | DX: G47.10 Hypersomnia, unspecified (principal); R53.83 Other fatigue; G47.9 Sleep disorder, unspecified; G25.81 Restless legs syndrome; R51.9 Headache, unspecified | CPT/HCPCS: 99212 ==

== ENCOUNTER → 2024-09-25 19:30 | Outpatient (REF) | payer OTHER, SELFPAY ==
--- OUTSIDE RECORDS SUMMARY | 2024-09-25 21:06 | XMS_ITS | Clinical Summary ---
Author Organization [facility] it Address [address] [place] [address] Care Team Providers Care Funeral Car Driver Name Role Phone Unavailable Primary Care Provider Unavailabl e Surgical History Surgery Date Site/Laterality Comments APPENDECTOMY PROCEDURE: NE APPENDEC INDICATED PURPOSE OTH MAJOR PX NOT [...] Recorded Sex Assigned at Not on file Legal Sex Male 5:43 AM EST Gender Identity Not on file Sexual Orientation Not on file Obstetrics History Plan of Treatment Health Maintenance Due Date Last Done Comments DTaP,Tdap,and Td Vaccines (1 - Tdap) 1978 Pneumococcal Vaccine: 50+ Years (1 of 1 - PCV) 2009 Zoster Vaccines (1 of 2) 2009 COVID-19 Vaccine (1 - 2023-25 season) 2024 Influenza Vaccine (#1) 2024 5, [...] patient's age to complete this topic Meningococcal B Vacine Aged Out No lo nger eligible based on patient's age to complete [...]
--- OUTSIDE RECORDS SUMMARY | 2024-09-25 21:07 | XMS_ITS ---
Author Organization [facility] Address [address] [place] [address] Care Team Providers Care Plug Paster Name Role Phone Delmy Quiroz MD Primary Care Provider Emanuel Ruffin [phone] ALLERGIES No Known Allergies REASON FOR VISIT patient presents today for GERD, COLONOSCOPY MEDICATIONS Medication SIG (Take, Route, Frequency, Duration) Notes Start Date End Date Status Omeprazole 20 MG TAKE 1 [facility]LE [facility] for 30 Active Vitamin B12 100 MCG as directed Orally Active Metoprolol Tartrate 25 MG TAKE 1 TABLET BY MOUTH TWICE A DAY WITH FOOD Oral for 90 Active Rosuvastatin Calcium 40 MG 1 tablet Oral ly Once a day for 30 day(s) Active amLODIPine Besylate 5 MG TAKE 1 TABLET B Y MOUTH ONCE DAILY Oral for 90 Active Aspirin 81 81 MG 1 tablet Orally Once a day for 30 day(s) Active Cyclobenzaprine HCl 10 MG 1 tablet at be dtime as needed Orally Once a day for 30 day(s) Active Sennosides-Docusate Sodium 8.6-50 MG 1 tablet as needed Orally Twice a day Active SOCIAL HISTORY Tobacco Use: Social History Observation Description Date Details (start date - stop date) Never Smoker NA - NA Sex Assigned At : Social History Observation Description Sex Assigned At Unknown Tobacco Use/Smoking Question Answer Notes Patient is a nonsmoker Alcohol Screen Question Answer Notes Did you have a drink containing alcohol in the p ast year? No Points 0 Interpretation Negative PROBLEMS Problem Type ICD Code Onset Dates Problem Status W/U Status Risk SNOMED Code Notes Problem Abdominal pain, generalized (R10.84) Active confirmed Generalized abdominal pain (642626067) Problem Personal history of colonic polyps (Z86.010) Active confirmed History of polyp of colon (situation) (852284981) VITAL SIGNS BMI 29.56 kg/m2 09/04/2024 Blood pressure systolic 00 mm Hg 09/04/19 25 Blood pressure diastolic 00 mm Hg 025 Height 72 in 09/04/2024 Weight 218 lbs 09/04/2024 Encounters Encounter Location Date Provider Diagnosis [facility] [address] [place] [address] 09/04/2024 Emanuel Buenrostro Encounter for screen ing for malignant neoplasm of colon Z12.11 ; Gastroesophageal reflux disease without esophagitis K21.9 ; Long-term use of aspirin therapy Z79.82 ; Abdominal pain, generalized R10.84 and Personal history of colonic polyps Z86.010 ASSESSMENTS Encounter Date Diagnosis Assessment Notes Treatment Notes Treatment Clinical Notes 09/04/2024 Encounter for screen ing for malignant neoplasm of colon (ICD-10 - Z12.11) Do not take aspirin on the morning of the procedures 09/04/2024 Gastroesophageal ref lux disease without esophagitis (ICD-10 - K21.9) 09/04/2024 Long-term use of aspirin therapy (ICD-10 - Z79.82) 09/04/2024 Abdominal pain, generalized (ICD-10 - R10.84) 09/04/2024 Personal history of colonic polyps (ICD-10 - Z86.010) PLAN OF TREATMENT Treatment Notes Assessment Notes Encounter for screening for malignant neoplasm of colon Do not take aspirin on the morning of th e procedures Future Test Test Name Order Date UPPER GI ENDOSCOPY 09/04/2024 COLONOSCOPY 09/04/2024 Next Appt Details Follow Up: prn, Reason: Provider Name:Emanuel Buenrostro , 12/17/2024 09:30:00 AM, [address] [place] [address] , [place], [place], [phone], Progress Notes * Examination Category Sub-Category Detail Notes General Examination GENERAL APPEARANCE: pleasant , well nourished, well developed, in no acute distress HEAD: EYES: sclera non-icteric EARS: NOSE: THROAT: NECK/THYROID: no cervical lymphade nopathy, neck supple HEART: S1, S2 normal CHEST: LUNGS: clear to auscultatio n bilaterally ABDOMEN: normal bowel sounds, no guarding or rigidity, no guarding or rigidity, no masses palpable, soft, nontender, nondistended NEUROLOGIC: alert and oriented SKIN: nonjaundiced, no spi lorne angiomata EXTREMITIES: no edema PERIPHERAL PULSES: BACK: BREASTS: MUSCULOSKELETAL: MALE GENITOURINARY: LYMPH NODES: RECTAL EXAM: FEMALE GENITOURINARY: ORAL CAVITY: mucosa moist
--- OUTSIDE RECORDS SUMMARY | 2024-09-25 21:07 | XMS_ITS ---
Author Organization [facility] Address [address] [place] [address] Care Team Providers Care Health Information Administrator Name Role Phone Delmy Quiroz MD Primary Care Provider Emanuel Ruffin [phone] REASON FOR VISIT Pt no show Encounters Encounter Location Date Provider Diagnosis [facility] [address] [place] [phone] 08/20/2024 Emanuel Buenrostro PLAN OF TREATMENT Next Appt Details Provider Name:Emanuel Buenrostro , 12/17/2024 09:30:00 AM, [address] [place] [address] , [place], [place], [phone],
--- OUTSIDE RECORDS SUMMARY | 2024-09-25 21:07 | XMS_ITS ---
Author Organization [facility] Address [address] [place] [phone] Care Team Providers Care Stripper Shovel Operator Name Role Phone Delmy Quiroz MD Primary Care Provider Emanuel Ruffin [phone] REASON FOR VISIT colon screening Encounters Encounter Location Date Provider Diagnosis [facility] 10 [facility] [address] [place] [phone] 08/20/2024 Emanuel Buenrostro PLAN OF TREATMENT Next Appt Details Provider Name:Emanuel Buenrostro , 12/17/2024 09:30:00 AM, [address] [place] [address] , [place], [place], [phone],
--- OUTSIDE RECORDS SUMMARY | 2024-09-25 21:07 | XMS_ITS | Patient Health Record ---
Author Organization [facility] Address [address] [place] [phone] Care Team Providers Care Expediter Name Role Phone Po Delmy WOODRUFF Primary Care Provider Emanuel Ruffin [phone] ALLERGIES No Known Allergies REASON FOR REFERRAL No Information MEDICATIONS Medication SIG (Take, Route, Frequency, Duration) Notes Start Date End Date Status Rosuvastatin Calcium 40 MG 1 tablet Oral ly Once a day for 30 day(s) Active Sennosides-Docusate Sodium 8.6-50 MG 1 tablet as needed Orally Twice a day Active Omeprazole 20 MG TAKE 1 CAPSULE BY [facility] EVERY DAY for 30 Active Vitamin B12 100 MCG as directed Orally Active amLODIPine Besylate 5 MG TAKE 1 TABLET B Y MOUTH ONCE DAILY Oral for 90 Active Aspirin 81 81 MG 1 tablet Orally Once a day for 30 day(s) Active Cyclobenzaprine HCl 10 MG 1 tablet at be dtime as needed Orally Once a day for 30 day(s) Active Metoprolol Tartrate 25 MG TAKE 1 TABLET BY MOUTH TWICE A DAY WITH FOOD Oral for 90 Active IMMUNIZATIONS Vaccine Route Administration Date Status [...] malignant neoplasm of colon (Z12.11) Active confirmed 923789756 Problem Long-term use of aspirin therapy (Z79.82) Active confirmed 176969844 Problem Preprocedural examination (Z01.818) Active confirmed [id number] Problem Gastroesophageal reflux disease without esophagitis (K21.9) Active confirmed 568288315 Problem Hiatal hernia (K44.9) Active confirmed 38172436 Problem Abdominal pain, generalized (R10.84) Active confirmed Generalized abdominal pain (647748598) Problem Personal history of colonic polyps (Z86.010) Active confirmed History of poly p of colon (situation) (628498708) VITAL SIGNS Blood pressure diastolic 00 mm Hg 09/04/2024 Height 72 in 09/04/2024 Blood pressure systolic 00 mm Hg 09/04/2024 Weight 218 lbs 09/04/2024 BMI 29.56 kg/m2 09/04/2024 Encounters Encounter Location Date Provider Diagnosis [facility] [address] [place] [phone] 04/04/2024 Emanuel Buenrostro [facility] [address] [place] [phone] 08/20/2024 Emanuel Buenrostro [facility] [address] [place] [phone] 09/04/2024 Emanuel Buenrostro Encounter for screen ing for malignant neoplasm of colon Z12.11 ; Gastroesophageal reflux disease without esophagitis K21.9 ; Long-term use of aspirin therapy Z79.82 ; Abdominal pain, generalized R10.84 and Personal history of colonic polyps Z86.010 [facility] [address] [address] 08/20/2024 Emanuel Buenrostro ASSESSMENTS Encounter Date Diagnosis Assessment Notes Treatment [...] polyps (ICD-10 - Z86.010) PLAN OF TREATMENT Future Test Test Name Order Date COLONOSCOPY 12/25/2019 UPPER GI ENDOSCOPY 09/04/2024 COLONOSCOPY 09/04/2024 Next Appt Details Provider Name:Emanuel Buenrostro , 12/17/2024 09:30:00 AM, [address] [place] [address] , [place], [place], [phone], Insurance Providers Payer Name Payer Address Payer Phone Subscriber Number Group Number Insured Name Patient Relationship to Insured Coverage Start Date Coverage End Date [facility] [address] Attn Claims JORGE A Herrera [id number] ANGE WEBSTER Self - patient is the insured MEDICAL (GENERAL) HISTORY Medical History History ICD Code Polyneuropathy Polycythemia vera--sees Dr. Collazo--occa sional phlebotomy Hypertension Elevated cholesterol Depression Pulmonary embolus--previously on Coumadi n Denies [place],DM,CVA,Lung disease,renal dise ase Sleep apnea--not using a CPAP CAD with stent x 2 in 2003-no [place] Colonoscopy in 2005 with a nonadenomatou s polyp GERD-EGD in 2006 with a large HH--no eso phagitis, no Yeh's Screening colonoscopy in May with a rectal tubular adenoma removed Negative abdominal ultrasoun d in [address] of the abdomen in August of 2024 Prostate cancer with surgery as below Surgical History Surgery Date(Month/Year) Prostatectomy for prostate cancer in 200 5 Appendectomy
== END ==
LOC: HO.SL 19:30
PROVIDERS: PCP Internal Medicine; Visit Provider Physician Assistant Medical
DX: G47.10 Hypersomnia, unspecified (principal); R53.83 Other fatigue; G47.9 Sleep disorder, unspecified
CPT/HCPCS: 95810

== ENCOUNTER → 2024-09-25 23:20 | Outpatient (BNV) | payer OTHER, SELFPAY | PROVIDERS: PCP Internal Medicine; Visit Provider Psychiatry & Neurology Neurology | DX: G47.10 Hypersomnia, unspecified (principal) | CPT/HCPCS: 95810 ==

== ENCOUNTER 2024-10-01 12:49 | Outpatient (REF) | payer OTHER, SELFPAY ==
--- NOTE | 2024-10-01 12:52 | EMG_ITS ---
Chief complaint: Chronic on and off back pain Woke up 1 year ago with numbness in stomach and right lower extremity. Same symptoms started on left side 2 months ago. Reason for referral: Evaluate for radiculopathy versus neuropathy Referred by: Dr. Quiroz Procedure done: Bilateral lower extremity NCS/EMG Precautions and/or limitations: None The limb temperature was monitored continuously and remained between 32-36 degrees C during the performance of the NCS. Nerve Conduction Studies Anti Sensory Summary Table ?Stim Site NR Onset (ms) Norm Onset (ms) Peak (ms) Norm Peak (ms) O-P Amp (?V) Norm O-P Amp Site1 Site2 Delta-0 (ms) Dist (cm) Reji (m/s) Norm Reji (m/s) Left Sural Anti Sensory (Lat Mall) Calf ? 2.8 3.4 <4.0 6.7 >5.0 Calf Lat Mall 2.8 14.0 50 Right Sural Anti Sensory (Lat Mall) Calf ? 2.8 3.7 <4.0 15.4 >5.0 Calf Lat Mall 2.8 14.0 50 Motor Summary Table ?Stim Site NR Onset (ms) Norm Onset (ms) O-P Amp (mV) Norm O-P Amp iAmp (mV) Amp (1st) (%) Site1 Site2 Delta-0 (ms) Dist (cm) Reji (m/s) Norm Reji (m/s) Right Peroneal Motor (Ext Dig Brev) Ankle ? 3.8 <4.0 6.9 >2.5 7.7 100.0 Ankle Ext Dig Brev 3.8 0.0 B Fib ? 12.1 5.5 6.1 79.7 B Fib Ankle 8.3 34.0 41 >40 Poplt ? 13.4 5.4 6.0 78.3 Poplt B Fib 1.3 6.0 46 >40 Left Tibial Motor (Abd Francis Brev) Ankle ? 4.1 <5 5.3 >2.5 7.1 100.0 Ankle Abd Francis Brev 4.1 0.0 Knee ? 14.1 3.8 5.5 71.7 Knee Ankle 10.0 41.0 41 >40 Right Tibial Motor (Abd Francis Brev) Ankle ? 4.2 <5 7.5 >2.5 10.3 100.0 Ankle Abd Francis Brev 4.2 0.0 Knee ? 14.0 6.5 7.9 86.7 Knee Ankle 9.8 43.0 44 >40 EMG ?Side Muscle Nerve Root Ins Act Fibs Psw Amp Dur Poly Recrt Int Pat Comment Right AbdHallucis MedPlantar S1-2 Nml Nml Nml Nml Nml 0 Nml Complete Right AntTibialis Dp Br Peron L4-5 Nml Nml Nml Nml Nml 0 Nml Complete Right PostTibialis Tibial L5, S1 Nml Nml Nml Nml Nml 0 Nml Complete Right MedGastroc Tibial S1-2 Nml Nml Nml Nml Nml 0 Nml Complete Right VastusMed Femoral L2-4 Nml Nml Nml Nml Nml 0 Nml Complete Left AbdHallucis MedPlantar S1-2 Incr 1+ 1+ Nml Nml 0 Nml Complete Left AntTibialis Dp Br Peron L4-5 Nml Nml Nml Nml Nml 0 Nml Complete Left PostTibialis Tibial L5, S1 Nml Nml Nml Nml Nml 0 Nml Complete Left MedGastroc Tibial S1-2 Nml Nml Nml Nml Nml 0 Nml Complete Left VastusMed Femoral L2-4 Nml Nml Nml Nml Nml 0 Nml Complete Paraspinal EMG ?Side Muscle Nerve Root Ins Act Fibs Psw Comment Right Lumbar Upper Rami Nml Nml Nml Right Lumbar Mid Rami Nml Nml Nml Right Lumbar Lower Rami Nml Nml Nml Left Lumbar Upper Rami Nml Nml Nml Left Lumbar Mid Rami Incr 1+ 1+ Left Lumbar Lower Rami Incr 1+ 1+ FINDINGS: All motor and sensory nerves tested showed normal latencies, amplitudes and conduction velocities. Concentric needle EMG was performed in selected muscles of the bilateral lower extremity and lumbar paraspinals. Study revealed signs of electric abnormalities as shown in the table above. Left AH showed increased insertional activity, PSWs and fibrillations. Left mid to low lumbar paraspinals showed increased insertional activity, PSWs and fibrillations. IMPRESSION: 1. This is an abnormal study. 2. There is electrodiagnostic evidence for acute/subacute left L5-S1 radiculopathy. 3. There is no electrodiagnostic evidence for peroneal neuropathy, tibial neuropathy. lumbosacral plexopathy, or peripheral neuropathy. CLINICAL COMMENT: Further clinical correlation recommended. Thank you for your kind referral. Niki Lopez MD, OREN Board Certified, [place] Board of Physical Medicine and Rehabilitation (ABPMR) Board Certified, [place] Board of Electrodiagnostic Medicine (ABEM) CODIN [id number] x 2 MTDD
--- OUTSIDE RECORDS SUMMARY | 2024-10-01 15:42 | XMS_ITS | Clinical Summary ---
Author Organization [facility] it Address [address] [place] [address] Care Team Providers Care Hearing Screener Name Role Phone Unavailable Primary Care Provider Unavailabl e Surgical History Surgery Date Site/Laterality Comments APPENDECTOMY PROCEDURE: CA APPENDEC INDICATED PURPOSE OTH MAJOR PX NOT [...]
--- OUTSIDE RECORDS SUMMARY | 2024-10-01 15:42 | XMS_ITS ---
Author Organization [facility] Address [address] [place] [phone] Care Team Providers Care Vegetable Farming Supervisor Name Role Phone Delmy Quiroz MD Primary Care Provider Emanuel Ruffin [phone] REASON FOR VISIT colon screening Encounters Encounter Location Date Provider Diagnosis [facility] 10 [facility] [address] [place] [phone] 08/20/2024 Emanuel Buenrostro PLAN OF TREATMENT Next Appt Details Provider Name:Emanuel Buenrostro , 12/17/2024 09:30:00 AM, [address] [place] [address] , [place], [place], [phone],
--- OUTSIDE RECORDS SUMMARY | 2024-10-01 15:43 | XMS_ITS | Patient Health Record ---
Author Organization [facility] Address [address] [place] [address] Care Team Providers Care Axle Turner Name Role Phone Po Delmy WOODRUFF Primary Care Provider Emanuel Ruffin [phone] ALLERGIES No Known Allergies REASON FOR REFERRAL No Information MEDICATIONS Medication SIG (Take, Route, Frequency, Duration) Notes Start Date End Date Status Rosuvastatin Calcium 40 MG 1 tablet Oral ly Once a day for 30 day(s) Active Sennosides-Docusate Sodium 8.6-50 MG 1 tablet as needed Orally Twice a day Active Omeprazole 20 MG TAKE 1 CAPSULE BY [facility] EVERY DAY for 30 Active Vitamin B12 [...] malignant neoplasm of colon (Z12.11) Active confirmed 772701710 Problem Personal history of colonic polyps (Z86.010) Active confirmed History of poly p of colon (situation) (778069132) Problem Gastroesophageal reflux disease without esophagitis (K21.9) Active confirmed 371243506 Problem Preprocedural examination (Z01.818) Active confirmed 896535971086822 Problem Hiatal hernia (K44.9) Active confirmed 10494817 Problem Long-term use of aspirin therapy (Z79.82) Active confirmed 609578102 Problem Abdominal pain, generalized (R10.84) Active confirmed Generalized abdominal pain (337010411) VITAL SIGNS Blood pressure diastolic 00 mm Hg 09/04/2024 Height 72 in 09/04/2024 Blood pressure systolic 00 mm Hg 09/04/2024 Weight 218 lbs 09/04/2024 BMI 29.56 kg/m2 09/04/2024 Encounters Encounter Location Date Provider Diagnosis [facility] [address] [place] [phone] 04/04/2024 Emanuel Buenrostro [facility] [address] [place] [address] 08/20/2024 Emanuel Buenrostro [facility] [address] [place] [address] 09/04/2024 Emanuel Buenrostro Encounter for screen ing for malignant neoplasm of colon Z12.11 ; Gastroesophageal reflux disease without esophagitis K21.9 ; Long-term use of aspirin therapy Z79.82 ; Abdominal pain, generalized R10.84 and Personal history of colonic polyps Z86.010 [facility] [address] [address] 08/20/2024 Emanuel Buenrostro ASSESSMENTS Encounter Date Diagnosis [...] Provider Name:Emanuel Buenrostro , 12/17/2024 09:30:00 AM, [address] [place] [address] , [place], [place], [phone], Insurance Providers Payer Name Payer Address Payer Phone Subscriber Number Group Number Insured Name Patient Relationship to Insured Coverage Start Date Coverage End Date [facility] [address] Attn Claims JORGE A Herrera [id number] ANGE WEBSTER Self - patient is the insured MEDICAL (GENERAL) HISTORY Medical History History ICD Code Polyneuropathy Polycythemia vera--sees Dr. Collazo--occa sional phlebotomy Hypertension Elevated cholesterol Depression Pulmonary embolus--previously on Coumadi n Denies [place],DM,CVA,Lung disease,renal dise ase Sleep apnea--not using a CPAP CAD with stent x 2 in 2003-no [place] Colonoscopy in 2005 with a nonadenomatou s [...]
--- OUTSIDE RECORDS SUMMARY | 2024-10-01 15:43 | XMS_ITS ---
Author Organization [facility] Address [address] [place] [phone] Care Team Providers Care Door Repairer Bus Name Role Phone Delmy Quiroz MD Primary Care Provider Emanuel Ruffin [phone] ALLERGIES No Known Allergies REASON FOR VISIT patient presents today for GERD, COLONOSCOPY MEDICATIONS Medication SIG (Take, Route, Frequency, Duration) Notes Start Date End Date Status Omeprazole 20 MG TAKE 1 CAPSULE BY [facility] EVERY DAY for 30 Active Vitamin B12 [...] generalized (R10.84) Active confirmed Generalized abdominal pain (331619342) Problem Personal history of colonic polyps (Z86.010) Active confirmed History of polyp of colon (situation) (969937668) VITAL SIGNS Blood pressure systolic 00 mm Hg 09/04/19 25 Blood pressure diastolic 00 mm Hg 025 Height 72 in 09/04/2024 Weight 218 lbs 09/04/2024 BMI 29.56 kg/m2 09/04/2024 Encounters Encounter Location Date Provider Diagnosis [facility] [address] [place] [address] 09/04/2024 Emanuel Buenrostro Encounter for screen ing [...] Provider Name:Emanuel Buenrostro , 12/17/2024 09:30:00 AM, [address] [place] [address] , [place], [place], [phone], Progress Notes * Examination Category Sub-Category Detail [...]
--- OUTSIDE RECORDS SUMMARY | 2024-10-01 15:43 | XMS_ITS ---
Author Organization [facility] Address [address] [place] [phone] Care Team Providers Care Sidehand Name Role Phone Delmy Quiroz MD Primary Care Provider Emanuel Ruffin [phone] REASON FOR VISIT Pt no show Encounters Encounter Location Date Provider Diagnosis [facility] [address] [place] [phone] 08/20/2024 mEanuel Buenrostro PLAN OF TREATMENT Next Appt Details Provider Name:Emanuel Buenrostro , 12/17/2024 09:30:00 AM, [address] [place] [address] , [place], [place], [phone],
== END 2024-10-01 12:50 | disposition home or self-care (01) ==
LOC: HO.NEURO 12:49
PROVIDERS: PCP Internal Medicine; Visit Provider Internal Medicine
DX: R20.0 Anesthesia of skin (principal)
CPT/HCPCS: 95886; 95909

== ENCOUNTER → 2024-10-01 12:52 | Outpatient (BNV) | payer OTHER, SELFPAY | PROVIDERS: PCP Internal Medicine; Visit Provider Physical Medicine & Rehabilitation | DX: M54.16 Radiculopathy, lumbar region (principal) | CPT/HCPCS: 95886; 95909 ==

== ENCOUNTER 2024-10-15 09:41 | Outpatient (AMB) | payer OTHER, SELFPAY ==
--- NOTE | 2024-10-15 09:56 | A.OFFPC_ITS ---
Vital Signs 10/15/24 09:57 Height 6 ft Weight 218 lb BMI 29.6 BP 124/82 Blood Pressure Location Lt brachial Position Sitting Pulse 76 Pulse Source Pulse Oximeter Pulse Oximetry (%) 97 Oxygen Delivery Method Room Air Intake Visit Reasons: Discuss Results Allergies No Known Allergies [No Known Allergies*] Allergy (Verified 10/15/24 09:59) Medication List - Last Reconciled 10/15/24 by Delmy Quiroz MD amlodipine 5 mg PO DAILY aspirin 81 mg PO DAILY cyanocobalamin (vitamin B-12) 100 mcg PO DAILY cyclobenzaprine 5 mg PO TID PRN gabapentin 200 mg (2 x 100 mg) PO BEDTIME MDD 200mg magnesium oxide 400 mg PO DAILY MDD 400mg metoprolol tartrate 25 mg PO BID omeprazole 20 mg PO QAM 90 days pyridoxine (vitamin B6) 250 mg PO DAILY MDD 250MDD rosuvastatin 40 mg PO DAILY sennosides-docusate sodium 8.6-50 mg (Senna Plus) 2 tab-caps (2 x 8.6-50 mg) PO BEDTIME PRN 30 days sumatriptan succinate 50 mg orally; take only with the onset of migraines. May take one additional tablet 2 hours after the first tablet. triamcinolone acetonide 0.5% 1 appl topical BID Tobacco use date assessed: 08/29/24 Fall risk assessment: No Falls in past year Last assessed Fall Risk: 10/15/24 Dental Screening Dental Screen Date: 08/20/24 [facility] Medical History Back pain Epigastric pain Dizziness Encounter for annual physical examination excluding gynecological examination in a patient older than 17 years Renal calculus Erectile dysfunction Hypertension Protein S deficiency Hypercholesterolemia Pulmonary embolism CAD (coronary artery disease) Prostate CA Arthritis Polycythemia vera Hiatal hernia GERD (gastroesophageal reflux disease) Sleep apnea Hx of syncope Surgical History History of appendectomy History of inferior vena caval filter placement Hx of colonoscopy History of esophagogastroduodenoscopy (EGD) H/O prostatectomy Hx of cardiac cath Family History Father Medical history unknown Mother Diabetes Asthma Hypertension Brother Dialysis patient Sister Schizophrenia Sister Diabetes Chronic mental illness Other Mental health disorder Social History Housing: Apartment Alcohol intake: current Alcohol intake frequency: holidays/special occasions only Alcohol type: beer Comment: QOD 2 beers Patient Tobacco Use Status: Never used Tobacco Tobacco use type: Cigarette Years Smoked: smoking marijuana e-Cigarette/Vaping Use: Never Used Second Hand Smoke Exposure: Yes Substance Use Type: Marijuana service: No Current occupational status: disabled Cognitive needs: No Hearing needs: No Vision needs: No Questionnaire PHQ-9 Over the last 2 weeks, how often have you been bothered by any of the following problems? 1. Little interest or pleasure in doing things: not at all 2. Feeling down, depressed, or hopeless: nearly every day 3. Trouble falling or staying asleep, or sleeping too much: more than half the days 4. Feeling tired or having little energy: more than half the days 5. Poor appetite or overeating: more than half the days 6. Feeling bad about yourself - or that you are a failure or have let yourself or your family down: not at all 7. Trouble concentrating on things, such as reading the newspaper or watching television: several days 8. Moving or speaking so slowly that other people could have noticed. Or the opposite - being so fidgety or restless that you have been moving around a lot more than usual: several days 9. Thoughts that you would be better off or of hurting yourself in some way: not at all Total score: 11 Depression Screening Interpretation: Positive Depression Screening Done: Yes Source: Developed by Drs. Emanuel Pablo, Shonda Griffith, Ethan Vieyra and colleagues, with an educational adonay from [employer]. Thrive Questionnaire Date Thrive assessed: 08/20/24 TINY-7 AMB Questionnaire TINY-7 Date TINY - 7 assessed: 08/20/24 Source: Developed by Drs. Emanuel Pablo, Ethan Jj and colleagues, with an educational adonay from [employer]. Physical exam (Primary Care) Vital Signs: Last Vital Signs Pulse 76 10/15/24 09:57 BP 124/82 10/15/24 09:57 Pulse Ox 97 10/15/24 09:57 Oxygen Delivery Method Room Air 10/15/24 09:57 BMI result Body Mass Index 29.6 Tobacco/Smoking Status: Tobacco use Status Tobacco use date assessed 08/29/24 10/15/24 10:01 Patient Tobacco Use Status Never used Tobacco 10/15/24 10:01 Tobacco use type Cigarette 10/15/24 10:01 e-Cigarette/Vaping Use Never Used 10/15/24 10:01 PHQ-9: PHQ-9 Score PHQ-9: Total score 11 10/15/24 10:30 Depression Screening Interpretation: Positive Thrive Assessment: Date of Thrive Assessment Date Thrive assessed 08/20/24 10/15/24 10:01 Const General: alert; No acute distress Eyes Conjunctivae: conjunctivae normal Resp Auscultation: clear to auscultation bilaterally Cardio Rate: regular rate Rhythm: regular rhythm GI Inspection: Yes normal to inspection Extrem General: Yes normal to inspection and No edema Coding Level of Care Code Est Pt Level 4 (57009) Diagnoses Fatigue due to sleep pattern disturbance R53.83; G47.9 Tubular adenoma of colon D12.6 Overweight (BMI 25.0-29.9) E66.3 Coronary artery disease involving [place] coronary artery of [place] heart without angina pectoris I25.10 Associated angina: without angina Coronary Disease-Associated Artery/Lesion type: [place] artery [place] vs. transplanted heart: [place] heart Essential hypertension I10 Hypertension type: essential hypertension Gastroesophageal reflux disease without esophagitis K21.9 Esophagitis presence: without esophagitis Hypercholesterolemia E78.00 Left leg numbness R20.0 Knee pain, right M25.561 Right foot pain M79.671 Assessment & Plan Assessment & Plan (1) Fatigue due to sleep pattern disturbance: Code(s): R53.83 - Other fatigue; G47.9 - Sleep disorder, unspecified Category: Medical Plan: Patient has seen Neurology and has advised sleep study but cannot sleep so left testing (2) Tubular adenoma of colon: Comment: 06/2020 Dr. Buenrostro Code(s): D12.6 - Benign neoplasm of colon, unspecified Category: Medical Plan: Patient is scheduled for colonoscopy in December under gastroenterology (3) Overweight (BMI 25.0-29.9): Code(s): E66.3 - Overweight Category: Medical Plan: Diet and exercise (4) CAD (coronary artery disease): Comment: Cath 2019 shows nml coronaries Code(s): I25.10 - Atherosclerotic heart disease of [place] coronary artery without angina pectoris Category: Medical Qualifiers: Associated angina: without angina Coronary Disease-Associated Ar alfonso/Lesion type: [place] artery [place] vs. transplanted heart: [place] heart Qualified Code(s): I25.10 - Atherosclerotic heart disease of [place] coronary artery without angina pectoris Plan: Control the cholesterol, weight, blood pressure, on aspirin (5) Hypertension: Code(s): I10 - Essential (primary) hypertension Category: Medical Qualifiers: Hypertension type: essential hypertension Qualified Code(s): I10 - Essential (primary) hypertension Plan: Continue with blood pressure medication. Decrease salt intake and exercise on amlodipine metoprolol (6) GERD (gastroesophageal reflux disease): Comment: EGD August 200608/2024 Patulous esophagus with mildly disorganized peristalsis consistent with esophageal dysmotility. 2. Moderate-sized type I hiatal hernia with severe gastroesophageal reflux. 3. Multiple tiny foci of contrast pooling in the fundus and body of the stomach that may represent small mucosal ulcerations. Recommend correlation with EGD. 4. Multilevel degenerative changes noted throughout the cervical spi Code(s): K21.9 - Gastro-esophageal reflux disease without esophagitis Category: Medical Qualifiers: Esophagitis presence: without esophagitis Qualified Code(s): K21.9 - Gastro-esophageal reflux disease without esophagitis Plan: Avoid the foods that causes that usually spicy foods, tomato products, juices, coffee, soda and foods that your sensitive to. After eating do not lie down, allow 3-4 hours before in lie down. And keep the head of bed above 30 degrees to avoid the acid from going up. Patient was advised to abstain from alcohol (7) Hypercholesterolemia: Code(s): E78.00 - Pure hypercholesterolemia, unspecified Category: Medical Plan: Avoid fried foods, chicken skin, eggs, butter margarine, pastries and meat. Be it pork or beef they have a lot of cholesterol on rosuvastatin LDL goal of less than 70 and triglyceride of less than 150 (8) Left leg numbness: Comment: Nerve conduction test 09/25/2024 L5-S1 radiculopathy Code(s): R20.0 - Anesthesia of skin Category: Medical Plan: Patient had a nerve conduction test September 2024This is an abnormal study. 2. There is electrodiagnostic evidence for acute/subacute left L5-S1 radiculopathy. 3. There is no electrodiagnostic evidence for peroneal neuropathy, tibial neuropathy. lumbosacral plexopathy, or peripheral neuropathy. BUT patient does not have problem with L leg. complains of R leg numbness and R knee pain (9) Knee pain, right: Code(s): M25.561 - Pain in right knee Category: Medical (10) Right foot pain: Code(s): M79.671 - Pain in right foot Category: Medical Plan History of Present Illness The patient is a 64-year-old male presenting with complaints regarding several chronic medical conditions requiring follow-up. His extensive medical history includes significant cardiovascular risk factors such as hypercholesterolemia and essential hypertension, both managed with specific regimens. Coronary artery disease is another major ongoing concern, treated with aspirin, and monitored closely. The patient reported issues with radicular pain and numbness in his lower extremities. A past nerve conduction study revealed subacute L5-S1 radiculopathy. Right leg pain and weakness impair his mobility, and he describes an unusual frostbite-like numbness in his toes. He has a history of gastrointestinal disturbances, including GERD and findings of stomach ulcerations and a hiatal hernia during previous investigations. Despite past interventions, he continues to experience symptoms, frequently reporting episodic sharp abdominal pain. His efforts to alleviate these issues through lifestyle changes, including abstinence from alcohol, have been noted. Health Maintenance - Coronary artery disease management through aspirin - Blood pressure control with amlodipine and metoprolol - Cholesterol management with rosuvastatin targeting LDL < 70 and triglycerides < 150 mg/dL - Gastroesophageal reflux disease management previously attempted with omeprazole - Advised on colonoscopy scheduled for December - Proposed x-ray for knee pain evaluation - Sleep study initially suggested but not completed during 2020 follow-up Social History - Reports abstinence from alcohol use as of earlier this year - Discussed engagement in diet and exercise recommendations from gastroenterology Review of Systems - Musculoskeletal: Reports right leg pain and weakness, worsening with walking, and frostbite-like numbness in toes - Respiratory: Denies cough - Gastrointestinal: Reports persistent sharp abdominal pain, numbness in the stomach, past ulcerations - Neurological: Reports hypersomnia, left leg numbness, ongoing right knee issues - Mental Health: Generalized anxiety disorder documented Physical Exam - Cardiovascular- Pulse palpable and circulation reported as good Results - Nerve conduction test (September 2024): Subacute L5-S1 radiculopathy - Gastroenterology evaluation: Hiatal hernia, severe reflux Plan The patient will require an x-ray of the right knee to assess any underlying arthritic changes contributing to his reported pain and weakness. Management of cardiovascular conditions with established medications will continue, ensuring proper control of blood pressure and cholesterol levels. The patient should follow up with gastroenterology services for ongoing evaluation of gastric complaints and complete a colonoscopy. Considering a sleep study remains advisable to address diagnosed hypersomnia, and lifestyle interventions will be reinforced to potentially ease GERD symptoms. It is crucial to monitor his adherence to treatment protocols and reassess medication efficacy regularly. Patient was informed and verbally consented to the use of an ambient scribe for clinic note documentation during this visit. Discussion Notes We discussed the necessity of ordering an x-ray for further evaluation of knee pain and possible arthritis indication, as confirmed by the patient's symptom atology and past nerve studies. I advised maintaining medication adherence for coronary artery disease and addressed the need for modifying lifestyle habits concerning gastric symptoms and ceasing alcohol consumption. Emphasized the importance of completing suggested diagnostic tests such as the colonoscopy and reiterated the benefits of follow-up care with gastroenterology services. We reviewed the potential value of revisiting a sleep study to tackle the patient's hypersomnia complaints effectively. Future consultations will verify x-ray outcomes and medication needs, reinforcing relapses into previous harmful habits. Patient Instructions - Schedule and obtain an x-ray for the right knee at your earliest convenience. - Continue with your current prescriptions for blood pressure and cholesterol. - Follow dietary recommendations to manage reflux; avoiding foods that may exacerbate symptoms. - Abstain from alcohol consumption. - Prepare for and attend your colonoscopy scheduled for December. - Consider rescheduling the sleep study to better understand hypersomnia symptoms. - Stay hydrated and maintain a balanced diet rich in water and nutrients. - Contact us if you experience any worsening of symptoms or new concerns before your next scheduled follow-up. Orders: Orders XR knee RT 2V Today M25.561 - Pain in right knee XR foot RT 2V Today M79.671 - Pain in right foot
[2024-10-15 09:57] VITALS: BP 124/82; PULSE 76; O2SAT 97; BMI 29.6
--- OUTSIDE RECORDS SUMMARY | 2024-10-15 10:46 | XMS_ITS ---
Author Organization [facility] Address [address] [place] [phone] Care Team Providers Care Personnel Officer Name Role Phone Delmy Quiroz MD Primary Care Provider Emanuel Ruffin [phone] Allergies No Known Allergies REASON FOR VISIT patient presents today for GERD, COLONOSCOPY Medications Medication SIG (Take, Route, Frequency, Duration) Notes Start Date End Date Status Omeprazole 20 MG TAKE 1 CAPSULE BY [facility] EVERY DAY for 30 Active Vitamin [...] as needed Orally Twice a day Active Social History Tobacco Use: Social History Observation Description Date Details (start date - stop date) Never Smoker NA - NA Tobacco Use/Smoking Question Answer Notes Patient is a nonsmoker Alcohol Screen Question Answer Notes Did you have a drink containing alcohol in the p ast year? No Points 0 Interpretation Negative Section Notes: Smokes marijuana everyday; h eavy EtOH but stopped at the end of 2023 Problems Problem Type SNOMED Code ICD Code Onset Dates Problem Status W/U Status Risk Notes Problem Generalized abdominal pain (955608916) Abdominal pain, generalized (R10.84) Active confirmed Problem History of polyp of colon (situation) (842587761) Personal history of colonic polyps (Z86.010) Active confirmed Vital Signs Blood pressure systolic 00 mm Hg 09/04/19 25 Blood pressure diastolic 00 mm Hg 025 Height 72 in 09/04/2024 Weight 218 lbs 09/04/2024 BMI 29.56 kg/m2 09/04/2024 Encounters Encounter Location Date Provider Diagnosis [facility] [address] [place] [address] 09/04/2024 Emanuel Buenrostro Encounter for screen ing for malignant neoplasm of colon Z12.11 ; Gastroesophageal reflux disease without esophagitis K21.9 ; Long-term use of aspirin therapy Z79.82 ; Abdominal pain, generalized R10.84 and Personal history of colonic polyps Z86.010 Assessments Encounter Date Diagnosis (ICD Code) Assessment Notes Treatment Notes Treatment Clinical Notes Section Notes 09/04/2024 Encounter for screening for malignant neoplasm of colon (ICD-10 - Z12.11) Do not take aspirin on the morning of the procedures Overall, Jacek appears well. We did review that I suspect a lot of his abdominal complaints are related to his heavy alcohol use and now that he has stopped drinking for several weeks he does seem to be feeling better. I did review with him the importance of remaining sober on a long-term basis going forward. I did recommend a colonoscopy for further screening given the history of a tubular adenoma removed in 2019. We did review the rationale for that regard to colon cancer prevention. I also recommend a followup upper endoscopy in the same day given his long-standing reflux, heavy alcohol use, and abdominal discomfort. I did advise him to continue his omeprazole. Full consent was obtained from him for both procedures, including risks of bleeding and perforation. The procedure will be done with monitored anesthesia care. He was given the below instructions regarding adjustment of his medications for the procedure. At this time given his clinical appearance, negative workups over the past year or so, and improved symptomatology, I don't think he needs any further diagnostic studies such as imaging studies or laboratories on my part. Jacek was comfortable with this plan. Thank you again for allowing me to participate in Jacek's care. I shall continue to keep you advised of this progress. 09/04/2024 Gastroesophageal reflux disease without esophagitis (ICD-10 - K21.9) Overall, Jacek appears well. We did review that I suspect a lot of his abdominal complaints are related to his heavy alcohol use and now that he has stopped drinking for several weeks he does seem to be feeling better. I did review with him the importance of remaining sober on a long-term basis going forward. I did recommend a colonoscopy for further screening given the history of a tubular adenoma removed in 2019. We did review the rationale for that regard to colon cancer prevention. I also recommend a followup upper endoscopy in the same day given his long-standing reflux, heavy alcohol use, and abdominal discomfort. I did advise him to continue his omeprazole. Full consent was obtained from him for both procedures, including risks of bleeding and perforation. The procedure will be done with monitored anesthesia care. He was given the below instructions regarding adjustment of his medications for the procedure. At this time given his clinical appearance, negative workups over the past year or so, and improved symptomatology, I don't think he needs any further diagnostic studies such as imaging studies or laboratories on my part. Jacek was comfortable with this plan. Thank you again for allowing me to participate in Jacek's care. I shall continue to keep you advised of this progress. 09/04/2024 Long-term use of aspirin therapy (ICD-10 - Z79.82) Overall, Jacek appears well. We did review that I suspect a lot of his abdominal complaints are related to his heavy alcohol use and now that he has stopped drinking for several weeks he does seem to be feeling better. I did review with him the importance of remaining sober on a long-term basis going forward. I did recommend a colonoscopy for further screening given the history of a tubular adenoma removed in 2019. We did review the rationale for that regard to colon cancer prevention. I also recommend a followup upper endoscopy in the same day given his long-standing reflux, heavy alcohol use, and abdominal discomfort. I did advise him to continue his omeprazole. Full consent was obtained from him for both procedures, including risks of bleeding and perforation. The procedure will be done with monitored anesthesia care. He was given the below instructions regarding adjustment of his medications for the procedure. At this time given his clinical appearance, negative workups over the past year or so, and improved symptomatology, I don't think he needs any further diagnostic studies such as imaging studies or laboratories on my part. Jacek was comfortable with this plan. Thank you again for allowing me to participate in Jacek's care. I shall continue to keep you advised of this progress. 09/04/2024 Abdominal pain, generalized (ICD-10 - R10.84) Overall, Jacek appears well. We did review that I suspect a lot of his abdominal complaints are related to his heavy alcohol use and now that he has stopped drinking for several weeks he does seem to be feeling better. I did review with him the importance of remaining sober on a long-term basis going forward. I did recommend a colonoscopy for further screening given the history of a tubular adenoma removed in 2019. We did review the rationale for that regard to colon cancer prevention. I also recommend a followup upper endoscopy in the same day given his long-standing reflux, heavy alcohol use, and abdominal discomfort. I did advise him to continue his omeprazole. Full consent was obtained from him for both procedures, including risks of bleeding and perforation. The procedure will be done with monitored anesthesia care. He was given the below instructions regarding adjustment of his medications for the procedure. At this time given his clinical appearance, negative workups over the past year or so, and improved symptomatology, I don't think he needs any further diagnostic studies such as imaging studies or laboratories on my part. Jacek was comfortable with this plan. Thank you again for allowing me to participate in Charanjits care. I shall continue to keep you advised of this progress. 09/04/2024 Personal history of colonic polyps (ICD-10 - Z86.010) Overall, Jacek appears well. We did review that I suspect a lot of his abdominal complaints are related to his heavy alcohol use and now that he has stopped drinking for several weeks he does seem to be feeling better. I did review with him the importance of remaining sober on a long-term basis going forward. I did recommend a colonoscopy for further screening given the history of a tubular adenoma removed in 2019. We did review the rationale for that regard to colon cancer prevention. I also recommend a followup upper endoscopy in the same day given his long-standing reflux, heavy alcohol use, and abdominal discomfort. I did advise him to continue his omeprazole. Full consent was obtained from him for both procedures, including risks of bleeding and perforation. The procedure will be done with monitored anesthesia care. He was given the below instructions regarding adjustment of his medications for the procedure. At this time given his clinical appearance, negative workups over the past year or so, and improved symptomatology, I don't think he needs any further diagnostic studies such as imaging studies or laboratories on my part. Jacek was comfortable with this plan. Thank you again for allowing me to participate in Jacek's care. I shall continue to keep you advised of this progress. Plan Of Treatment Treatment Notes Assessment Notes Encounter for screening for malignant neoplasm of colon Do not take aspirin on the morning of th e procedures Future Test Test Name Order Date UPPER GI ENDOSCOPY 09/04/2024 COLONOSCOPY 09/04/2024 Next Appt Details Follow Up: prn, Reason: Provider Name:Emanuel Buenrostro , 12/17/2024 09:30:00 AM, [address] [place] [address] , [place], [place], [phone], Progress Notes * FARIHAJACEKISDOB:[birth year] (64 yo M)Acc No.[id number]:09/04/2024 Progress Notes Patient:?JACEK WEBSTER S Provider:?Emanuel Buenrostro MD :1960???Age:64 Y???Sex:Male Guanaco e:09/04/2024 Address:[address] [place], [place] [id number] Pcp:Delmy Quiroz MD Subjective: * Chief Complaints: * ???patient presents today fo r GERD, COLONOSCOPY * HPI: ???incontinence:? I saw Jacek in consultation today in regard to further evaluation of his gastroesophageal reflux, some abdominal discomfort, and personal history of a tubular adenoma the colon. ?I last saw Jacek in May 2020, at which time he underwent a screening colonoscopy with removal of a rectal tubular adenoma. He does have a long- standing history of reflux with a previous upper endoscopy in 2006 showing a fairly large hiatal hernia but no esophagitis or Yeh's esophagus at that time. He unfortunately has a long-standing history of intermittent heavy alcohol use including up until the end of 2023. He reports of sobriety over the past several weeks. ?He does describe episodes of some generalized abdominal discomfort and was seen at the ER at [facility] for this early this month. A workup at that time with laboratories and a CT scan was nonrevealing according to the ER records. He does describe sobriety since that ER visit and he has been feeling better in regard to his abdominal discomfort. He describes a good appetite without any significant heartburn or dysphagia. He describes his bowel movements are fairly regular and without any hematochezia nor melena. He denies any increasing abdominal distention or any signs of jaundice. ?He did have an Upper GI series just last week describing some evidence of reflux, his hiatal hernia, and probable gastritis. * ROS:?General/Constitutional:?Change in appetite?denies.?Chills?denies.?Fatigue?denies.?Ophthalmologic:?Comments?all negative.?ENT:?Comments?all negative.?Respiratory:?hemoptysis?denies.?Cough?denies.?Cardiovascular:?Chest pain?denies.?Orthopnea?denies.?Gastrointestinal:?Comments?See HPI for details.?Genitourinary:?Hematuria?denies.?Dysuria?denies.?Musculoskeletal:?Painful joints?denies.?Weakness?denies.?Skin:?Itching?denies.?Rash?denies.?Neurologic:?Headache?denies.?Seizures?denies.?Psychiatric:?Comments?all negative.? * Medical History:? * Surgical History:?Prostatect micki for prostate cancer in 2004 Appendectomy * Hospitalization/Major Diagno stic Procedure:?No Hospitalization History. * Family History:?Father: unkn own.?Mother: alive.? no known hx of colon cancer. * Social History:?Tobacco Use:?Tobacco Use/Smoking?Patient is a?nonsmoker.?Drugs/Alcohol:?Alcohol Screen?Did you have a drink containing alcohol in the past year??No,?Points?0,?Interpretation?Negative.?Miscellaneous:?Marital status: . Occupation: disablity. ???Smokes marijuana everyday; heavy EtOH but stopped at the end of 2023. * Medications:?TakingSennoside s-Docusate Sodium 8.6-50 MG Tablet 1 tablet as needed Orally Twice a dayRosuvastatin Calcium 40 MG Tablet 1 tablet Orally Once a dayCyclobenzaprine HCl 10 MG Tablet 1 tablet at bedtime as needed Orally Once a dayAspirin 81 81 MG Tablet Delayed Release 1 tablet Orally Once a dayamLODIPine Besylate 5 MG Tablet TAKE 1 TABLET BY MOUTH ONCE DAILY Oral Metoprolol Tartrate 25 MG Tablet TAKE 1 TABLET BY MOUTH TWICE A DAY WITH FOOD Oral Vitamin B12 100 MCG Tablet as directed Orally Omeprazole 20 MG Capsule Delayed Release TAKE 1 CAPSULE BY MOUTH EVERY DAY Taking Sennosides-Docusate Sodium 8.6-50 MG Tablet 1 tablet as needed Orally Twice a dayTaking Rosuvastatin Calcium 40 MG Tablet 1 tablet Orally Once a dayTaking Cyclobenzaprine HCl 10 MG Tablet 1 tablet at bedtime as needed Orally Once a dayTaking Aspirin 81 81 MG Tablet Delayed Release 1 tablet Orally Once a dayTaking amLODIPine Besylate 5 MG Tablet TAKE 1 TABLET BY MOUTH ONCE DAILY Oral Taking Metoprolol Tartrate 25 MG Tablet TAKE 1 TABLET BY MOUTH TWICE A DAY WITH FOOD Oral Taking Vitamin B12 100 MCG Tablet as directed Orally Taking Omeprazole 20 MG Capsule Delayed Release TAKE 1 CAPSULE BY MOUTH EVERY DAY DiscontinuedAtorvastatin Calcium 20 MG Tablet TK 1 T PO QD Oral Aspirin Adult Low Strength 81 MG Tablet Delayed Release TK 1 T PO QD Oral FLUoxetine HCl 20 MG Capsule TAKE 1 CAPSULE BY MOUTH ONCE DAILY EVERY MORNING Oral Medication List reviewed and reconciled with the patientDiscontinued Atorvastatin Calcium 20 MG Tablet TK 1 T PO QD Oral Discontinued Aspirin Adult Low Strength 81 MG Tablet Delayed Release TK 1 T PO QD Oral Discontinued FLUoxetine HCl 20 MG Capsule TAKE 1 CAPSULE BY MOUTH ONCE DAILY EVERY MORNING Oral Medication List reviewed and reconciled with the patient * Allergies:?N.K.D.A.yes[Aller gies Verified] Objective: * Vitals:?Wt: 218 lbs, Ht: 72 in, BMI:29.56 Index, BP: 00/00 mm Hg. * Examination: ???General Examination: ?GENERAL APPEARANCE:?pleasant, well nourished, well developed, in no acute distress.?EYES:?sclera non-icteric.?ORAL CAVITY:?mucosa moist.?NECK/THYROID:?no cervical lymphadenopathy, neck supple.?SKIN:?nonjaundiced, no spider angiomata.?HEART:?S1, S2 normal.?LUNGS:?clear to auscultation bilaterally.?ABDOMEN:?normal bowel sounds, no guarding or rigidity, no guarding or rigidity, no masses palpable, soft, nontender, nondistended.?EXTREMITIES:?no edema.?NEUROLOGIC:?alert and oriented.? Assessment: * Assessment: 1.?Gastroesophageal reflux d isease without esophagitis - K21.9 (Primary)?2.?Encounter for screening for malignant neoplasm of colon - Z12.11?3.?Long-term use of aspirin therapy - Z79.82?4.?Abdominal pain, generalized - R10.84?5.?Personal history of colonic polyps - Z86.010? Overall, Jacek appears well. We did review that I suspect a lot of his abdominal complaints are related to his heavy alcohol use and now that he has stopped drinking for several weeks he does seem to be feeling better. I did review with him the importance of remaining sober on a long-term basis going forward. I did recommend a colonoscopy for further screening given the history of a tubular adenoma removed in 2020. We did review the rationale for that regard to colon cancer prevention. I also recommend a followup upper endoscopy in the same day given his long-standing reflux, heavy alcohol use, and abdominal discomfort. I did advise him to continue his omeprazole. Full consent was obtained from him for both procedures, including risks of bleeding and perforation. The procedure will be done with monitored anesthesia care. He was given the below instructions regarding adjustment of his medications for the procedure. At this time given his clinical appearance, negative workups over the past year or so, and improved symptomatology, I don't think he needs any further diagnostic studies such as imaging studies or laboratories on my part. Jacek was comfortable with this plan. Thank you again for allowing me to participate in Jacek's care. I shall continue to keep you advised of this progress. Plan: * Treatment: 2.?Encounter for screening for malignant neoplasm of colon?Procedure: COLONOSCOPY (Ordered for 09/04/2024)* with MACsched for 12/17/24 at 9:30 ammiralax Notes: Do not take aspirin on the morning of the procedures??3.?Abdominal pain, generalized?Procedure: UPPER GI ENDOSCOPY (Ordered for 09/04/2024)* with MACsched for 12/17/24 at 9:30 am 4.?Personal history of colonic polyps?Procedure: COLONOSCOPY (Ordered for 09/04/2024)* with MACsched for 12/17/24 at 9:30 ammiralax * Procedure Codes:?3017F COLOR ECTAL CA SCREEN DOC [id number] TOBACCO [id number] BP SCR NOT PRFRM REC REASON NOS * Preventive Medicine:? ??Counseling:?Care goal follow-up plan:?Above Normal BMI Follow-up?Giving encouragement to exercise,?BMI management provided?Yes.? ??Screenings:?Fall Risk Screening?Fall Risk Assessment:?No falls in the past year,?Screening:?No falls in the past year,?Assessment:?Not performed, no reason specified,?Plan of Care:?Not documented, no reason specified.? * Follow Up:?prn * * Sign off status: Completed true * Provider:?Emanuel Buenrostro MD Date:? 025 Generated for Kamilla valadez/Josee/Nallelysmitting on:?10/15/2024 10:46 AM EDT History and Physical Notes * HPI (History of Present Illness) Category Sub-Category Detail Notes Category Not es incontinence I saw Jacek in consultation today in regard to further evaluation of his gastroesophageal reflux, some abdominal discomfort, and personal history of a tubular adenoma the colon. I last saw Jacek in May 2020, at which time he underwent a screening colonoscopy with removal of a rectal tubular adenoma. He does have a long-standing history of reflux with a previous upper endoscopy in 2006 showing a fairly large hiatal hernia but no esophagitis or Yeh's esophagus at that time. He unfortunately has a long-standing history of intermittent heavy alcohol use including up until the end of 2023. He reports of sobriety over the past several weeks. He does describe episodes of some generalized abdominal discomfort and was seen at the ER at [facility] for this early this month. A workup at that time with laboratories and a CT scan was nonrevealing according to the ER records. He does describe sobriety since that ER visit and he has been feeling better in regard to his abdominal discomfort. He describes a good appetite without any significant heartburn or dysphagia. He describes his bowel movements are fairly regular and without any hematochezia nor melena. He denies any increasing abdominal distention or any signs of jaundice. He did have an Upper GI series just last week describing some evidence of reflux, his hiatal hernia, and probable gastritis. Examination Category Sub-Category Detail Notes Category Not es General Examination GENERAL APPEARANCE: pleasant , well [...]
--- OUTSIDE RECORDS SUMMARY | 2024-10-15 10:46 | XMS_ITS | Clinical Summary ---
[facility] Address [address] [place] [address] Care Team Providers Care Sales Apprentice Name Role Phone Unavailable Primary Care Provider Unavailabl e Surgical History Surgery Date Site/Laterality Comments APPENDECTOMY PROCEDURE: TX APPENDEC INDICATED PURPOSE OTH MAJOR PX NOT [...]
--- OUTSIDE RECORDS SUMMARY | 2024-10-15 10:46 | XMS_ITS ---
Author Organization [facility] Address [address] [place] [address] Care Team Providers Care Mill Laborer Name Role Phone Delmy Quiroz MD Primary Care Provider Emanuel Ruffin [phone] REASON FOR VISIT Pt no show Encounters Encounter Location Date Provider Diagnosis [facility] [address] [facility] [address] [place] [phone] 08/20/2024 Emanuel Buenrostro Plan Of Treatment Next Appt Details Provider Name:Emanuel Buenrostro , 12/17/2024 09:30:00 AM, [address] [place] [address] , [place], [place], [id number], Progress Notes * ANGE WEBSTERDOB: [birth year] (64 yo M)Acc No.[id number]:08/20/2024 Patient:?ANGE WEBSTER :1960???Age:64 Y???Sex:Male Address:[address] [place] [address] [place] [address] * true * Date:? Generated for Printi ng/Abrahamg/eTransmitting on:?10/15/2024 10:46 AM EDT
--- OUTSIDE RECORDS SUMMARY | 2024-10-15 10:46 | XMS_ITS ---
Author Organization [facility] Address [address] [place] [phone] Care Team Providers Care Auto Radiator Mechanic Name Role Phone Delmy Quiroz MD Primary Care Provider Emanuel Ruffin [phone] REASON FOR VISIT colon screening Encounters Encounter Location Date Provider Diagnosis [facility] [address] [place] [phone] 08/20/2024 Emanuel Buenrostro Plan Of Treatment Next Appt Details Provider Name:Emanuel Buenrostro , 12/17/2024 09:30:00 AM, [address] [place] [address] , [place], [place], [phone], Progress Notes * ANGE WEBSTERISDOB:[birth year] (64 yo M)Acc No.[id number]:08/20/2024 Progress Notes Patient:?ANGE WEBSTER S Provider:?Emanuel Buenrostro MD :1960???Age:64 Y???Sex:Male Guanaco e:08/20/2024 Address:[address] [place], [place] [id number] Pcp:Delmy Quiroz MD Subjective: * Chief Complaints: * ???1. Colon screening. * Medical History:? Objective: * Vitals:? Assessment: Plan: * Treatment: * * The named appointment provid er may or may not be the originator of this progress note, and it is not deemed complete until electronically signed by the appointment provider. Sign off status: Pending * Provider:?Emanuel Buenrostro MD Date:? 025 Generated for Kamilla valadez/Josee/Bharathiitting on:?10/15/2024 10:45 AM EDT
--- OUTSIDE RECORDS SUMMARY | 2024-10-15 10:46 | XMS_ITS | Patient Health Record ---
Author Organization [facility] Address [address] [place] [address] Care Team Providers Care Trombone Slide Assembler Name Role Phone Po Delmy WOODRUFF Primary Care Provider Emanuel Ruffin [phone] Allergies No Known Allergies Reason For Referral No Information Medications Medication SIG (Take, Route, Frequency, Duration) Notes Start Date End Date Status Rosuvastatin Calcium 40 MG 1 tablet Oral ly Once a day for 30 day(s) Active Sennosides-Docusate Sodium 8.6-50 MG 1 tablet as needed Orally Twice a day Active Omeprazole 20 MG TAKE 1 CAPSULE BY [facility] EVERY DAY for 30 Active Vitamin B12 [...] DAY WITH FOOD Oral for 90 Active Immunizations Vaccine Route Administration Date Status Comme nts Influenza Unknown 04/06/2019 Administered Social History Tobacco Use: Social History Observation Description Date Details (start date - stop date) Never Smoker NA - NA Tobacco Use/Smoking Question Answer Notes Patient is a nonsmoker Alcohol Screen Question Answer Notes Did you have a drink containing alcohol in the p ast year? No Points 0 Interpretation Negative Section Notes: Nonsmoker; no sig alcohol Smokes marijuana everyday; h eavy EtOH but stopped at the end 2023 Problems Problem Type SNOMED Code ICD Code Onset Dates Problem Status W/U Status Risk Notes Problem 851984200 Encounter for screening for malignant neoplasm of colon (Z12.11) Active confirmed Problem History of polyp of colon (situation) (160269170) Personal history of colonic polyps (Z86.010) Active confirmed Problem 425297049 Gastroesophageal reflux disease without esophagitis (K21.9) Active confirmed Problem 927203814077752 Preprocedural examination (Z01.818) Active confirmed Problem 44224040 Hiatal hernia (K44.9) Active confirmed Problem 143713285 Long-term use of aspirin therapy (Z79.82) Active confirmed Problem Generalized abdominal pain (461153992) Abdominal pain, generalized (R10.84) Active confirmed Vital Signs Blood pressure diastolic 00 mm Hg 09/04/2024 Height 72 in 09/04/2024 Blood pressure systolic 00 mm Hg 09/04/2024 Weight 218 lbs 09/04/2024 BMI 29.56 kg/m2 09/04/2024 Encounters Encounter Location Date Provider Diagnosis [facility] [address] [place] [phone] 09/04/2024 Emanuel Buenrostro Encounter for screen ing for malignant neoplasm of colon Z12.11 ; Gastroesophageal reflux disease without esophagitis K21.9 ; Long-term use of aspirin therapy Z79.82 ; Abdominal pain, generalized R10.84 and Personal history of colonic polyps Z86.010 [facility] [address] [place] [phone] 08/20/2024 Emanuel Buenrostro Assessments Encounter Date Diagnosis (ICD Code) Assessment [...] advised of this progress. Plan Of Treatment Future Test Test Name Order Date COLONOSCOPY 12/25/2019 UPPER GI ENDOSCOPY 09/04/2024 COLONOSCOPY 09/04/2024 Next Appt Details Provider Name:Emanuel Buenrostro , 12/17/2024 09:30:00 AM, [address] [place] [address] , [place], [place], [id number], Insurance Providers Payer Name Payer Address Payer Phone Subscriber Number Group Number Insured Name Patient Relationship to Insured Coverage Start Date Coverage End Date [facility] [address] Attn Claims JORGE A Herrera [id number] JACEK WEBSTER Self - patient is the insured Medical (General) History Medical History History ICD Code Polyneuropathy Polycythemia vera--sees Dr. Collazo--occa sional phlebotomy Hypertension Elevated cholesterol Depression Pulmonary embolus--previously on Coumadi n Denies [place],DM,CVA,Lung disease,renal dise ase Sleep apnea--not using a CPAP CAD with stent x 2 in 2003-no [place] Colonoscopy in 2005 with a nonadenomatou s [...]
== END 2024-10-15 11:29 | disposition home or self-care (01) ==
LOC: HO.HMCH 09:42
PROVIDERS: PCP Internal Medicine; Visit Provider Internal Medicine
DX: R53.83 Other fatigue (principal); G47.9 Sleep disorder, unspecified; D12.6 Benign neoplasm of colon, unspecified; E66.3 Overweight; I25.10 Atherosclerotic heart disease of native coronary artery without angina pectoris; I10 Essential (primary) hypertension; K21.9 Gastro-esophageal reflux disease without esophagitis; E78.00 Pure hypercholesterolemia, unspecified; R20.0 Anesthesia of skin; M25.561 Pain in right knee; M79.671 Pain in right foot

== ENCOUNTER → 2024-10-15 09:41 | Outpatient (BNVA) | payer OTHER, SELFPAY | PROVIDERS: PCP Internal Medicine; Visit Provider Internal Medicine | DX: R53.83 Other fatigue (principal); G47.9 Sleep disorder, unspecified; D12.6 Benign neoplasm of colon, unspecified; E66.3 Overweight; I25.10 Atherosclerotic heart disease of native coronary artery without angina pectoris; I10 Essential (primary) hypertension; K21.9 Gastro-esophageal reflux disease without esophagitis; E78.00 Pure hypercholesterolemia, unspecified; R20.0 Anesthesia of skin; M25.561 Pain in right knee; M79.671 Pain in right foot | CPT/HCPCS: 99212 ==

== ENCOUNTER 2024-10-18 13:27 | Emergency (ER) | payer OTHER, SELFPAY ==
--- NOTE | 2024-10-18 13:32 | ED_ITS ---
HPI - General Adult General Chief complaint: Dental/Oral Stated complaint: dental issue Time Seen by Provider: 10/18/24 13:34 Source: patient Mode of arrival: ambulatory Limitations: no limitations History of Present Illness ED Provider: Aletha Reed PA-C HPI narrative: Patient is a 64 year old assigned male at with a history of CAD, GERD, HTN, and TINY presenting to the emergency department today with left upper dental pain. Patient states that over the last 3 days he has had left upper dental pain and facial swelling. Patient states that he has an appointment with a dentist on 10/20 but he is concerned about the swelling. Patient denies any dizziness, lightheadedness, abdominal pain, nausea, vomiting, fever, chills, blurry vision, double vision, loss of vision, chest pain, difficulty breathing, shortness of breath, back pain, night sweats, pain with urination, increased urinary frequency, increased urinary urgency, blood in his urine or stool, syncope or a near syncopal episode, recent trauma or falls, bowel incontinence, bladder incontinence, or any other complaints at this time. Onset (ago): day(s) (3) Location: mouth and left Relieving factors: none Exacerbating factors: none Associated symptoms: denies other symptoms Treatments prior to arrival: none Related Data Home Medications ?Medication ?Instructions ?Recorded ?Confirmed cyanocobalamin (vitamin B-12) 100 100 mcg PO DAILY 05/11/20 10/15/24 mcg tablet Previous Rx's ?Medication ?Instructions ?Recorded aspirin 81 mg tablet,delayed 81 mg PO DAILY #90 tabs 01/08/23 release amlodipine 5 mg tablet 5 mg PO DAILY #90 tabs 09/19/23 metoprolol tartrate 25 mg tablet 25 mg PO BID #180 tabs 09/19/23 triamcinolone acetonide 0.5 % 1 appl topical BID #45 grams 09/19/23 topical cream sennosides 8.6 mg-docusate sodium 2 tab-cap (2 x 8.6-50 mg) PO 12/25/23 50 mg tablet (Senna Plus) BEDTIME PRN constipation 30 days #60 tabs omeprazole 20 mg capsule,delayed 20 mg PO QAM 90 days #90 caps 05/22/24 release cyclobenzaprine 5 mg tablet 5 mg PO TID PRN muscle spasm #30 08/15/24 tabs gabapentin 100 mg capsule 200 mg (2 x 100 mg) PO BEDTIME 09/08/24 Restless legs #30 caps magnesium oxide 400 mg PO DAILY fatigue #30 tabs 09/08/24 pyridoxine (vitamin B6) 250 mg 250 mg PO DAILY RLS #30 tabs 09/08/24 tablet sumatriptan succinate 50 mg tablet 50 mg PO .COMPLEX headaches #12 09/09/24 tabs rosuvastatin 40 mg tablet 40 mg PO DAILY #30 tabs 09/25/24 amoxicillin 875 mg tablet 875 mg PO BID 5 days #10 tabs 10/18/24 Allergies Allergy/AdvReac Type Severity Reaction Status Date / Time No Known Allergies Allergy Verified 10/18/24 13:34 [No Known Allergies*] Review of Systems 2 Constitutional: Constitutional: Reports no additional constitutional complaints, Denies chills, Denies fever(s) and Denies night sweats Eyes: Eyes: Reports no additional eye complaints, Denies blurry vision, Denies change in vision, Denies diplopia, Denies eye discharge, Denies loss of vision and Denies eye pain ENT: Denies dizziness Comments: left upper dental pain Cardiovascular: Cardiovascular: Reports no additional cardiovascular complaints, Denies chest pain, Denies lightheadedness, Denies Loss of Consciousness and Denies dyspnea Respiratory: Respiratory: Reports no additional respiratory complaints and Denies dyspnea Gastrointestinal: Gastrointestinal: Reports no additional gastrointestinal complaints, Denies abdominal pain, Denies melena, Denies hematochezia, Denies change in bowel habits and Denies change in stool character Genitourinary: Genitourinary: Reports no additional male genitourinary complaints, Denies hematuria, Denies oliguria, Denies difficulty urinating, Denies dysuria, Denies urinary frequency, Denies urinary hesitancy, Denies urinary incontinence and Denies urinary urgency Musculoskeletal: Musculoskeletal: Reports no additional musculoskeletal complaints, Denies numbness and Denies tingling Neurologic: Denies dizziness, Denies loss of vision, Denies numbness and Denies tingling Psychiatric: Psychiatric: Reports no additional psychiatric complaints Endocrine: Endocrine: Reports no additional endocrine complaints Hematologic/Lymphatic: Hematologic/Lymphatic: Reports no additional hematologic/lymphatic complaints Allergic/Immunologic: Allergic/Immunologic: Reports no additional allergic/immunologic complaints PMFSH Past Medical History Attestation statement: The following information was validated with the patient. Source: old records reviewed and nursing notes reviewed Medical History Back pain Epigastric pain Dizziness Encounter for annual physical examination excluding gynecological examination in a patient older than 17 years Renal calculus Erectile dysfunction Hypertension Protein S deficiency Hypercholesterolemia Pulmonary embolism CAD (coronary artery disease) Prostate CA Arthritis Polycythemia vera Hiatal hernia GERD (gastroesophageal reflux disease) Sleep apnea Hx of syncope Surgical History History of appendectomy History of inferior vena caval filter placement Hx of colonoscopy History of esophagogastroduodenoscopy (EGD) H/O prostatectomy Hx of cardiac cath Family History Family History Father Medical history unknown Mother Diabetes Asthma Hypertension Brother Dialysis patient Sister Schizophrenia Sister Diabetes Chronic mental illness Other Mental health disorder Social History Social History Housing: Apartment Alcohol intake: current Alcohol intake frequency: holidays/special occasions only Alcohol type: beer Comment: QOD 2 beers Patient Tobacco Use Status: Never used Tobacco Tobacco use type: Cigarette Years Smoked: smoking marijuana e-Cigarette/Vaping Use: Never Used Second Hand Smoke Exposure: Yes Substance Use Type: Marijuana Advance Directives: No Advance Directives Information Provided: No service: No Current occupational status: disabled Cognitive needs: No Hearing needs: No Vision needs: No Physical Exam ED Vital Signs: Vital Signs - 24 hr 10/18/24 13:33 10/18/24 13:39 Temperature 97.8 F 97.8 F Pulse Rate 78 78 Respiratory Rate 18 18 Blood Pressure 154/96 H 154/96 H Pulse Oximetry 96 96 Oxygen Delivery Method Room Air Room Air BMI result Body Mass Index 29.8 Const General: cooperative, no acute distress, alert and awake Nutritional Appearance: well nourished Orientation/consciousness: patient oriented x3 Limitations: no limitations HENMT Head: Yes normal to inspection and Yes atraumatic Ears: hearing grossly normal bilaterally and external ears normal General nose exam: Normal external nose present, no nasal discharge noted and no epistaxis Face and sinus: Yes normal facial exam, No abrasion and No laceration Mouth: Normal oral and palatal mucosa present, no drooling and no muffled voice Teeth and gingiva: poor dentition Teeth image: 2 1. swelling, pain, no fluctuance Eyes General: appearance normal, both eyes and all related structures Periorbital: periorbital findings normal Eyelids: Yes eyelids normal Conjunctivae: conjunctivae normal Pupils: Equal, round and reactive pupils present EOM: EOMs intact bilaterally Neck Neck: Yes normal visual inspection, Yes full ROM and Yes no lymphadenopathy Chest Chest palpation & inspection: normal inspection of the chest Resp Effort & Inspection: normal respiratory effort and able to speak in complete sentences GI Inspection: Yes normal to inspection Neuro General: patient oriented x3, moves all extremities and CN's II-XI intact bilaterally Cranial nerves: Yes Equal, round and reactive pupils present Cognition (Neuro): normal cognition Extrem General: Yes normal to inspection, Yes full ROM and Yes capillary refill normal Psych Appearance: grossly normal Mental Status: mental status grossly normal Affect: normal affect Attitude: cooperative Thought process: Normal thought process present Thought content: Normal thought content present Insight: Good insight present (Psych) Medical Decision Making Medical Decision Making MDM Narrative: Patient is a 64 year old assigned male at with a history of CAD, GERD, HTN, and TINY presenting to the emergency department today with left upper dental pain. Patient's physical exam was as noted in the physical exam portion of this note. Patient's clinical presentation is most consistent with a dental infection and likely developing abscess with nothing to currently drain at this time. I explained my physical exam findings to the patient. I answered all questions asked by the patient. I stressed the importance of the patient taking his medication as directed (either prescribed or as the over the counter packaging recommends). I stressed the importance of the patient following up with his primary care provider and his dentist as scheduled. I stressed the importance of the patient returning to the emergency department immediately if his symptoms were to worsen or if he were to develop any dizziness, shortness of breath, difficulty breathing, chest pain, blurry vision, loss of vision, nausea, vomiting, abdominal pain, fever, chills, back pain, or any other complaints. Patient verbalized agreement and understanding with this treatment plan and discharge. Differential Diagnosis Differential Diagnoses: The differential diagnosis associated with the presentation includes Dental infection Admission/Observation Consideration of admission/observation: Escalation of care including admission/observation considered Patient would have been admitted to the hospital had his clinical presentation warranted hospital admission. Prescription Management I considered prescription management with: Antibiotic (patient prescribed an antibiotic) Discharge Plan Discharge Clinical Impression: Dental caries, Dental infection Patient Disposition: Home, Self-Care Instructions: Dental Abscess (ED) Additional Instructions: Follow up with your primary care provider and your dentist. Return to the emergency department immediately if your symptoms worsen or if you develop any numbness, tingling, dizziness, shortness of breath, difficulty breathing, chest pain, blurry vision, loss of vision, nausea, vomiting, abdominal pain, fever, chills, back pain, or any other complaints. Call or visit any of the clinics below to establish with a dentist: [facility] [address] [place] [address] [facility] [address] [place] [address] [facility] [address] [facility], [address] Elies[facility] [address] [place] [address] [facility] [address] [place] [address] [facility] [address] [place] [address] [place] [address] [place] [address] Please see the information below about our Patient Portal. If you are not yet enrolled in the [facility] Patient Portal, you will receive an enrollment email invitation following your visit to any [facility] care setting. You may also self-enroll in the Patient Portal by visiting our website: [email or web address] The following information is required to access the Patient Portal: - Your [facility] Medical Record Number - Your personal home email address (must match what is in your electronic medical record, Registration staff can assist with this) - Name - Date of Capabilities of the Patient Portal: - Message some providers - View upcoming appointments - Access your health summary, medical history, and visit history - View current conditions and allergies - View procedure and lab results - View your medications, including guidelines, side effects, and precautions - Complete pre-appointment questionnaires requested by your provider - Ready summary reports of your office visits and procedures To access the Patient Portal Mobile Astrid, follow these directions: - Search [employer] in the Astrid Store or [employer] Store - Download the Astrid - Search for [facility] - Enter your login/password Prescriptions: New amoxicillin 875 mg tablet 875 mg PO BID 5 Days Qty: 10 0RF No Action omeprazole 20 mg capsule,delayed release(DR/EC) 20 mg PO QAM 90 Days Qty: 90 1RF sumatriptan succinate 50 mg tablet 50 mg PO .COMPLEX Qty: 12 0RF Rx Instructions: 50 mg orally; take only with the onset of migraines. May take one additional tablet 2 hours after the first tablet. rosuvastatin 40 mg tablet 40 mg PO DAILY Qty: 30 9RF cyanocobalamin (vitamin B-12) 100 mcg Tablet 100 mcg PO DAILY cyclobenzaprine 5 mg tablet 5 mg PO TID PRN (Reason: muscle spasm) Qty: 30 0RF amlodipine 5 mg tablet 5 mg PO DAILY Qty: 90 3RF metoprolol tartrate 25 mg tablet 25 mg PO BID Qty: 180 2RF triamcinolone acetonide 0.5 % cream 1 appl topical BID Qty: 45 0RF sennosides-docusate sodium [Senna Plus] 8.6-50 mg tablet 2 tab-cap PO BEDTIME PRN (Reason: constipation) 30 Days Qty: 60 4RF aspirin 81 mg tablet,delayed release (DR/EC) 81 mg PO DAILY Qty: 90 3RF magnesium oxide 400 mg magnesium tablet 400 mg PO DAILY MDD 400mg Qty: 30 3RF pyridoxine (vitamin B6) 250 mg tablet 250 mg PO DAILY MDD 250MDD Qty: 30 3RF gabapentin 100 mg capsule 200 mg PO BEDTIME MDD 200mg Qty: 30 1RF Referrals: Rihcie,Delmy Jones MD [Primary Care Provider] - Interventions: ED Discharge Assessment Last Done: 10/18/24 13:39 Discharge Date/Time: 10/18/24 13:41 Print Language: American
[2024-10-18 13:33] VITALS: BP 154/96; PULSE 78; RESP 18; TEMP 36.6; O2SAT 96; BMI 29.8
[2024-10-18 13:39] VITALS: BP 154/96; PULSE 78; RESP 18; TEMP 36.6; O2SAT 96
--- OUTSIDE RECORDS SUMMARY | 2024-10-18 13:41 | XMS_ITS ---
Author Organization [facility] Address [address] [place] [phone] Care Team Providers Care Pharmacy Coordinator Name Role Phone Delmy Quiroz MD Primary Care Provider Emanuel Ruffin [phone] REASON FOR VISIT Pt no show Encounters Encounter Location Date Provider Diagnosis [facility] [address] [facility] [address] [place] [phone] 08/20/2024 Emanuel Buenrostro Plan Of Treatment Next Appt Details Provider Name:Emanuel Buenrostro , 12/17/2024 09:30:00 AM, [address] [place] [address] , [place], [place], [phone], Progress Notes * ANGE WEBSTERDOB: [birth year] (64 yo M)Acc No.[id number]:08/20/2024 Patient:?ANGE WEBSTER :1960???Age:64 Y???Sex:Male Address:[address] [place] [address] [place] [id number] * true * Date:? Generated for Printi ng/Faestefanyg/eTransmitting on:?10/18/2024 01:41 PM EDT
--- OUTSIDE RECORDS SUMMARY | 2024-10-18 13:41 | XMS_ITS | Patient Health Record ---
Author Organization [facility] Address [address] [place] [phone] Care Team Providers Care Hydrocrane Operator Name Role Phone Po Delmy WOODRUFF Primary Care Provider Emanuel Ruffin [phone] Allergies No Known Allergies Reason For Referral No Information Medications Medication SIG (Take, Route, Frequency, Duration) Notes Start Date End Date Status Rosuvastatin Calcium 40 MG 1 tablet Oral ly Once a day for 30 day(s) Active Sennosides-Docusate Sodium 8.6-50 MG 1 tablet as needed Orally Twice a day Active Omeprazole 20 MG TAKE 1 CAPSULE BY [facility] EVERY DAY for 30 Active Vitamin [...] Problem Status W/U Status Risk Notes Problem 110779815 Encounter for screening for malignant neoplasm of colon (Z12.11) Active confirmed Problem History of polyp of colon (situation) (928893003) Personal history of colonic polyps (Z86.010) Active confirmed Problem 301992004 Gastroesophageal reflux disease without esophagitis (K21.9) Active confirmed Problem 737028763800722 Preprocedural examination (Z01.818) Active confirmed Problem 20385953 Hiatal hernia (K44.9) Active confirmed Problem 355640613 Long-term use of aspirin therapy (Z79.82) Active confirmed Problem Generalized abdominal pain (912567879) Abdominal pain, generalized (R10.84) Active confirmed Vital Signs Blood pressure diastolic 00 mm Hg 09/04/2024 Height 72 in 09/04/2024 Blood pressure systolic 00 mm Hg 09/04/2024 Weight 218 lbs 09/04/2024 BMI 29.56 kg/m2 09/04/2024 Encounters Encounter Location Date Provider Diagnosis [facility] [address] [place] [phone] 09/04/2024 Emanuel Buenrostro Encounter for screen ing for malignant neoplasm of colon Z12.11 ; Gastroesophageal reflux disease without esophagitis K21.9 ; Long-term use of aspirin therapy Z79.82 ; Abdominal pain, generalized R10.84 and Personal history of colonic polyps Z86.010 [facility] [address] [place] [phone] 08/20/2024 Emanuel Buenrostro Assessments Encounter Date Diagnosis [...] Provider Name:Emanuel Buenrostro , 12/17/2024 09:30:00 AM, [address] [place] [address] , [place], [place], [phone], Insurance Providers Payer Name Payer Address Payer Phone Subscriber Number Group Number Insured Name Patient Relationship to Insured Coverage Start Date Coverage End Date [facility] [address] Attn Claims JORGE A Herrera [id number] JACEK WEBSTER Self - patient is the insured Medical (General) History Medical History History ICD Code Polyneuropathy Polycythemia vera--sees Dr. Collazo--occa sional phlebotomy Hypertension Elevated cholesterol Depression Pulmonary embolus--previously on Coumadi n Denies [place],DM,CVA,Lung disease,renal dise ase Sleep apnea--not using a CPAP CAD with stent x 2 in 2003-no [place] Colonoscopy in 2005 with a nonadenomatou s [...]
--- OUTSIDE RECORDS SUMMARY | 2024-10-18 13:41 | XMS_ITS ---
Author Organization [facility] Address [address] [place] [address] Care Team Providers Care Machine Builder Name Role Phone Delmy Quiroz MD Primary Care Provider Emanuel Ruffin [phone] Allergies No Known Allergies REASON FOR VISIT patient presents today for GERD, COLONOSCOPY Medications Medication SIG (Take, Route, Frequency, Duration) Notes Start Date End Date Status Omeprazole 20 MG TAKE 1 CAPSULE BY [facility] EVERY DAY for 30 Active [...] Status Risk Notes Problem Generalized abdominal pain (741904011) Abdominal pain, generalized (R10.84) Active confirmed Problem History of polyp of colon (situation) (043760188) Personal history of colonic polyps (Z86.010) Active confirmed Vital Signs Blood pressure systolic 00 mm Hg 09/04/19 25 Blood pressure diastolic 00 mm Hg 025 Height 72 in 09/04/2024 Weight 218 lbs 09/04/2024 BMI 29.56 kg/m2 09/04/2024 Encounters Encounter Location Date Provider Diagnosis [facility] [address] [place] [address] 09/04/2024 Emanuel Buenrostro Encounter for screen ing [...] Provider Name:Emanuel Buenrostro , 12/17/2024 09:30:00 AM, [address] [place] [address] , [place], [place], [phone], Progress Notes * FARIHAJACEKISDOB:[birth year] (64 yo M)Acc No.[id number]:09/04/2024 Progress Notes Patient:?JACEK WEBSTER S Provider:?Emanuel Buenrostro MD :1960???Age:64 Y???Sex:Male [place]anaco e:09/04/2024 Address:[address] [place], [place] [id number] Pcp:Delmy Quiroz MD Subjective: * Chief Complaints: [...] and was seen at the ER at [facility] for this early this month. A workup [...] Procedure Codes:?3017F COLOR ECTAL CA SCREEN DOC [id number] TOBACCO [id number] BP SCR NOT PRFRM REC REASON NOS [...] MD Date:? 025 Generated for Kamilla valadez/Josee/Nallelysmitting on:?10/18/2024 01:41 PM EDT History and Physical Notes * HPI [...] and was seen at the ER at [facility] for this early this month. A workup [...]
--- OUTSIDE RECORDS SUMMARY | 2024-10-18 13:41 | XMS_ITS ---
Author Organization [facility] Address [address] [place] [address] Care Team Providers Care Oxygen Therapy Technician Name Role Phone Delmy Quiroz MD Primary Care Provider Emanuel Ruffin [phone] REASON FOR VISIT colon screening Encounters Encounter Location Date Provider Diagnosis [facility] [address] [facility] [address] [place] [phone] 08/20/2024 Emanuel Buenrostro Plan Of Treatment Next Appt Details Provider Name:Emanuel Buenrostro , 12/17/2024 09:30:00 AM, [address] [place] [address] , [place], [place], [phone], Progress Notes * ANGE WEBSTERISDOB:[birth year] (64 yo M)Acc No.[id number]:08/20/2024 Progress Notes Patient:?ANGE WEBSTER S Provider:?Emanuel Buenrostro MD :1960???Age:64 Y???Sex:Male Guanaco e:08/20/2024 Address:[address] [place], [place] [id number] Pcp:Delmy Quiroz MD Subjective: * Chief Complaints: [...] Buenrostro MD Date:? 025 Generated for Kamilla valadez/Josee/Mary on:?10/18/2024 01:40 PM EDT
== END 2024-10-18 13:41 | disposition home or self-care (01) ==
PROVIDERS: Emergency Provider Emergency Medicine; PCP Internal Medicine
DX: K04.7 Periapical abscess without sinus (principal); K02.9 Dental caries, unspecified; K08.89 Other specified disorders of teeth and supporting structures; F12.90 Cannabis use, unspecified, uncomplicated
CPT/HCPCS: 99282; 99283

== ENCOUNTER 2024-10-22 12:39 | Outpatient (REF) | payer OTHER, SELFPAY ==
--- NOTE | ~2024-10-22 | XR_ITS ---
CLINICAL HISTORY: M25.561 - Pain in right knee 2 view right knee Comparison: None Findings: No fractures or dislocations. No significant arthritic change or erosions. No joint effusion. No radiopaque foreign body. IMPRESSION: 1. No acute findings. This document has been electronically signed by: Trevin Nichols MD on 10/24/2024 07:46:29
--- NOTE | ~2024-10-22 | XR_ITS ---
CLINICAL HISTORY: M79.671 - Pain in right foot 3 view right foot Comparison: None Findings: Bones intact. No dislocations. No significant loss of joint space, osteophytes, or erosions. No ankle effusion. No radiopaque foreign body. IMPRESSION: 1. No acute findings. This document has been electronically signed by: Trevin Nichols MD on 10/24/2024 07:46:28
--- OUTSIDE RECORDS SUMMARY | 2024-10-22 15:02 | XMS_ITS | Clinical Summary ---
[facility] Organization [facility] Address [address] [place] [address] Care Team Providers Care Dental Technologist Name Role Phone Unavailable Primary Care Provider Unavailabl e Surgical History Surgery Date Site/Laterality Comments APPENDECTOMY PROCEDURE: [place] APPENDEC INDICATED PURPOSE OTH MAJOR PX NOT [...] of 2) 2009 COVID-19 Vaccine (1 - 2023- season) 2024 [...]
--- OUTSIDE RECORDS SUMMARY | 2024-10-22 15:02 | XMS_ITS ---
Author Organization [facility] Address [address] [place] [phone] Care Team Providers Care Unit Operator Name Role Phone Delmy Quiroz MD Primary Care Provider Emanuel Ruffin [phone] REASON FOR VISIT colon screening Encounters Encounter Location Date Provider Diagnosis [facility] 10 [facility] [address] [place] [phone] 08/20/2024 Emanuel Buenrostro Plan Of Treatment Next Appt Details Provider Name:Emanuel Buenrostro , 12/17/2024 09:30:00 AM, [address] [place] [address] , [place], [place], [phone], Progress Notes * ANGE WEBSTERISDOB:[birth year] (64 yo M)Acc No.[id number]:08/20/2024 Progress Notes Patient:?ANGE WEBSTER S Provider:?Emanuel Buenrostro MD :1960???Age:64 Y???Sex:Male Guanaco e:08/20/2024 Address:[address] [place], [place] [id number] Pcp:Delmy Quiroz MD Subjective: * Chief Complaints: [...] MD Date:? 025 Generated for Kamilla valadez/Josee/Mary on:?10/22/2024 03:02 PM EDT
--- OUTSIDE RECORDS SUMMARY | 2024-10-22 15:02 | XMS_ITS ---
Author Organization [facility] Address [address] [place] [address] Care Team Providers Care Medical Dosimetrist Name Role Phone Delmy Quiroz MD Primary Care Provider Emanuel Ruffin [phone] Allergies No Known Allergies REASON FOR VISIT patient presents today for GERD, COLONOSCOPY Medications Medication SIG (Take, Route, Frequency, Duration) Notes Start Date End Date Status Omeprazole 20 MG TAKE 1 CAPSULE BY [facility] EVERY DAY for 30 Active Vitamin B12 [...] Status Risk Notes Problem Generalized abdominal pain (224334491) Abdominal pain, generalized (R10.84) Active confirmed Problem History of polyp of colon (situation) (189401183) Personal history of colonic polyps (Z86.010) Active confirmed Vital Signs Blood pressure systolic 00 mm Hg 09/04/19 25 Blood pressure diastolic 00 mm Hg 025 Height 72 in 09/04/2024 Weight 218 lbs 09/04/2024 BMI 29.56 kg/m2 09/04/2024 Encounters Encounter Location Date Provider Diagnosis [facility] [address] [place] [address] 09/04/2024 Emanuel Buenrostro Encounter for screen ing [...] imaging studies or laboratories on my part. Jacke was comfortable with this plan. Thank you [...] Provider Name:Emanuel Buenrostro , 12/17/2024 09:30:00 AM, [address] [place] [address] , [place], [place], [phone], Progress Notes * FARIHAJACEKISDOB:[birth year] (64 yo M)Acc No.[id number]:09/04/2024 Progress Notes Patient:?JACEK WEBSTER S Provider:?Emanuel Buenrostro MD :1960???Age:64 Y???Sex:Male Guanaco e:09/04/2024 Address:[address] [place], [place] [phone] Pcp:Delmy Quiroz MD Subjective: * Chief Complaints: [...] and was seen at the ER at [facility] for this early this month. A [...] Procedure Codes:?3017F COLOR ECTAL CA SCREEN DOC [id number] TOBACCO NON-[id number] BP SCR NOT PRFRM REC REASON NOS [...] MD Date:? 025 Generated for Kamilla valadez/Josee/Nallelysmitting on:?10/22/2024 03:02 PM EDT History and Physical Notes * [...] and was seen at the ER at [facility] for this early this month. A [...]
--- OUTSIDE RECORDS SUMMARY | 2024-10-22 15:02 | XMS_ITS ---
Author Organization [facility] Address [address] [place] [phone] Care Team Providers Care Client Support Manager Name Role Phone Delmy Quiroz MD Primary Care Provider Emanuel Ruffin [phone] REASON FOR VISIT Pt no show Encounters Encounter Location Date Provider Diagnosis [facility] [address] [place] [phone] 08/20/2024 Emanuel Buenrostro Plan Of Treatment Next Appt Details Provider Name:Emanuel Buenrostro , 12/17/2024 09:30:00 AM, [address] [place] [address] , [place], [place], [phone], Progress Notes * ANGE WEBSTERDOB: 9 (64 yo M)Acc No.[id number]:08/20/2024 Patient:?ANGE WEBSTER :1960???Age:64 Y???Sex:Male Address:[address] [place] [address] [place] [address] * true * Date:? Generated for Printi ng/Abrahamg/eTransmitting on:?10/22/2024 03:02 PM EDT
--- OUTSIDE RECORDS SUMMARY | 2024-10-22 15:02 | XMS_ITS | Patient Health Record ---
Author Organization [facility] Address [address] [place] [address] Care Team Providers Care Sheet Catcher Name Role Phone Po Delmy WOODRUFF Primary Care Provider Emanuel Ruffin [phone] Allergies No Known Allergies Reason For Referral No Information Medications Medication SIG (Take, Route, Frequency, Duration) Notes Start Date End Date Status Rosuvastatin Calcium 40 MG 1 tablet Oral ly Once a day for 30 day(s) Active Sennosides-Docusate Sodium 8.6-50 MG 1 tablet as needed Orally Twice a day Active Omeprazole 20 MG TAKE 1 CAPSULE BY [facility] EVERY DAY for 30 Active [...] Problem Status W/U Status Risk Notes Problem [id number] Encounter for screening for malignant neoplasm of colon (Z12.11) Active confirmed Problem History of polyp of colon (situation) (186223411) Personal history of colonic polyps (Z86.010) Active confirmed Problem 991629953 Gastroesophageal reflux disease without esophagitis (K21.9) Active confirmed Problem 629059077519064 Preprocedural examination (Z01.818) Active confirmed Problem 83121020 Hiatal hernia (K44.9) Active confirmed Problem 355044059 Long-term use of aspirin therapy (Z79.82) Active confirmed Problem Generalized abdominal pain (922305462) Abdominal pain, generalized (R10.84) Active confirmed Vital Signs Blood pressure diastolic 00 mm Hg 09/04/2024 Height 72 in 09/04/2024 Blood pressure systolic 00 mm Hg 09/04/2024 Weight 218 lbs 09/04/2024 BMI 29.56 kg/m2 09/04/2024 Encounters Encounter Location Date Provider Diagnosis [facility] [address] [place] [phone] 09/04/2024 Emanuel Buenrostro Encounter for screen ing for malignant neoplasm of colon Z12.11 ; Gastroesophageal reflux disease without esophagitis K21.9 ; Long-term use of aspirin therapy Z79.82 ; Abdominal pain, generalized R10.84 and Personal history of colonic polyps Z86.010 [facility] [address] [place] [phone] 08/20/2024 Emanuel Buenrostro Assessments Encounter Date Diagnosis [...] Provider Name:Emanuel Buenrostro , 12/17/2024 09:30:00 AM, [address] [place] [address] , [place], [place], [phone], Insurance Providers Payer Name Payer Address Payer Phone Subscriber Number Group Number Insured Name Patient Relationship to Insured Coverage Start Date Coverage End Date [facility] [address] Attn Claims JORGE A Herrera [id number] JACEK WEBSTER Self - patient is the insured Medical (General) History Medical History History ICD Code Polyneuropathy Polycythemia vera--sees Dr. Collazo--occa sional phlebotomy Hypertension Elevated cholesterol Depression Pulmonary embolus--previously on Coumadi n Denies MD,DM,CVA,Lung disease,renal dise ase Sleep apnea--not using a CPAP CAD with stent x 2 in 2003-no MD Colonoscopy in 2005 with a nonadenomatou s [...]
== END 2024-10-22 12:40 | disposition home or self-care (01) ==
LOC: HO.XRAY 12:39
PROVIDERS: Visit Provider Internal Medicine
DX: M79.671 Pain in right foot (principal); M25.561 Pain in right knee
CPT/HCPCS: 73560; 73620

== ENCOUNTER → 2024-10-22 12:42 | Outpatient (BNV) | payer OTHER, SELFPAY | PROVIDERS: Visit Provider Specialist | DX: M25.561 Pain in right knee (principal); M79.671 Pain in right foot | CPT/HCPCS: 73560; 73620 ==

== ENCOUNTER 2024-12-17 08:10 | Day surgery (SDC) | payer OTHER, SELFPAY ==
--- OUTSIDE RECORDS SUMMARY | 2024-12-04 15:59 | XMS_ITS | Clinical Summary ---
[facility] Address [address] [place] [address] Care Team Providers Care Office Machine Servicer Name Role Phone Unavailable Primary Care Provider Unavailabl e Surgical History Surgery Date Site/Laterality Comments APPENDECTOMY PROCEDURE: [place] APPENDEC INDICATED PURPOSE OTH MAJOR PX NOT [...] (1 - 2023- season) 2024 Influenza Vaccine (Season Ended) 2025 05/19/2015, 06/29/2014, 04/14/2013, Additional history exists RSV Immunization Adult Patients (1 - 1-dose 75+ series) 2034 HIB [...] age to complete this topic Meningococcal B Vaccine Aged Out No l onger eligible based on patient's age to complete [...]
[2024-12-15 10:00] VITALS: BMI 29.6
--- NOTE | 2024-12-16 09:29 | P.CONAN_ITS ---
Documented by User: Tracey Gavin NP 12/16/24 09:32 HPI - Anesthesia Eval Consult details Narrative: 64yo M for Upper Endoscopy and Colonoscopy CAD with remote hx stents (2004), neg cath 2019. Follows with PCP only [facility] Active Problems Active Problems: All Active Problems Right foot pain (Acute) Knee pain, right (Acute) Left leg numbness (Acute) Headache around the eyes (Acute) RLS (restless legs syndrome) (Acute) Fatigue due to sleep pattern disturbance (Acute) Flank pain (Acute) Urinary incontinence (Acute) Bilateral leg numbness (Acute) Right sided numbness (Acute) Hypersomnia (Acute) Dysphagia (Acute) Shoulder pain (Acute) Constipation (Acute) Tubular adenoma of colon (Acute) Erythrocytosis (Chronic) Polycythemia (Acute) RUQ abdominal pain (Acute) Overweight (BMI 25.0-29.9) (Acute) Cervicalgia (Acute) Cervical spine fracture (Acute) Colon cancer screening (Acute) Chest pain at rest (Acute) Tinnitus (Acute) Generalized anxiety disorder (Acute) Annual physical exam (Acute) COVID-19 virus infection (Acute) Eczema (Acute) Pulmonary embolism (Acute) Renal calculus (Acute) CAD (coronary artery disease) (Acute) Hypertension (Acute) GERD (gastroesophageal reflux disease) (Acute) Hypercholesterolemia (Acute) Past Medical History Medical History Dizziness Epigastric pain Back pain Encounter for annual physical examination excluding gynecological examination in a patient older than 17 years Renal calculus Erectile dysfunction Hypertension Protein S deficiency Hypercholesterolemia Pulmonary embolism CAD (coronary artery disease) Prostate CA Arthritis Polycythemia vera Hiatal hernia GERD (gastroesophageal reflux disease) Sleep apnea Hx of syncope Family History Family History Father Medical history unknown Mother Diabetes Asthma Hypertension Brother Dialysis patient Sister Schizophrenia Sister Diabetes Chronic mental illness Other Mental health disorder Surgical History Surgical History History of appendectomy History of inferior vena caval filter placement Hx of colonoscopy History of esophagogastroduodenoscopy (EGD) H/O prostatectomy Hx of cardiac cath Social History Social History Housing: Apartment Are you a primary college and career counselor to a significant other at home: Yes (brother) Do you presently have visiting nurse or other home services: Yes Alcohol intake: current Alcohol intake frequency: former alcohol drinker Alcohol type: beer Comment: PCP aware ( neuropathy) Patient Tobacco Use Status: Never used Tobacco Tobacco use type: Cigarette Years Smoked: smoking marijuana e-Cigarette/Vaping Use: Never Used Second Hand Smoke Exposure: Yes Use of substances other than those prescribed or required for medical reasons: Yes Substance Use Type: Marijuana Substance Use Frequency: Occasionally Have you been hit, kicked, punched, or otherwise hurt by someone within the past year? If so, by whom?: No Are you DNR?: No Advance Directives: No Advance Directives Information Provided: Yes Poor oral hygiene: No service: No Current occupational status: disabled Cognitive needs: No Hearing needs: No Vision needs: No Meds Allergies Allergy/AdvReac Type Severity Reaction Status Date / Time No Known Allergies Allergy Verified 10/18/24 13:34 [No Known Allergies*] Home Medications ?Medication ?Instructions ?Recorded ?Confirmed ?Last Taken ?Type cyanocobalamin (vitamin B-12) 100 100 mcg PO DAILY 05/11/20 12/15/24 Unknown History mcg tablet Exam Height,Weight and Vital Signs: Height 6 ft Weight 98.883 kg Pertinent Lab Results Pertinent Lab Results: Laboratory Tests 12/15/24 14:18 WBC 6.0 Hgb 15.9 Hct 45.2 Plt Count 171 Sodium 142 Potassium 4.1 D Chloride 109 H Carbon Dioxide 26 BUN 15 Creatinine 1.13 Assessment and Plan Assessment Anesthesia Assessment: Chart Reviewed Documented by User: Corey Rivera MD 12/17/24 10:19 PMFSH Past Medical History Medical History Dizziness Epigastric pain Back pain Encounter for annual physical examination excluding gynecological examination in a patient older than 17 years Renal calculus Erectile dysfunction Hypertension Protein S deficiency Hypercholesterolemia Pulmonary embolism CAD (coronary artery disease) Prostate CA Arthritis Polycythemia vera Hiatal hernia GERD (gastroesophageal reflux disease) Sleep apnea Hx of syncope Narrative: c/o band like chest pain 26/02 going around his chest, neg w/u, that's why he's having EGD today. Family History Family History Father Medical history unknown Mother Diabetes Asthma Hypertension Brother Dialysis patient Sister Schizophrenia Sister Diabetes Chronic mental illness Other Mental health disorder Family history of problems with anesthesia: No Surgical History Surgical History History of appendectomy History of inferior vena caval filter placement Hx of colonoscopy History of esophagogastroduodenoscopy (EGD) H/O prostatectomy Hx of cardiac cath History of Problems with Anesthesia: No Social History Social History Housing: Apartment Are you a primary college and career counselor to a significant other at home: Yes (brother) Do you presently have visiting nurse or other home services: Yes Alcohol intake: current Alcohol intake frequency: former alcohol drinker Alcohol type: beer Comment: PCP aware ( neuropathy) Patient Tobacco Use Status: Never used Tobacco Tobacco use type: Cigarette Years Smoked: smoking marijuana e-Cigarette/Vaping Use: Never Used Second Hand Smoke Exposure: Yes Use of substances other than those prescribed or required for medical reasons: Yes Substance Use Type: Marijuana Substance Use Frequency: Occasionally Have you been hit, kicked, punched, or otherwise hurt by someone within the past year? If so, by whom?: No Are you DNR?: No Advance Directives: No Advance Directives Information Provided: Yes Poor oral hygiene: No service: No Current occupational status: disabled Cognitive needs: No Hearing needs: No Vision needs: No Meds Allergies Allergy/AdvReac Type Severity Reaction Status Date / Time No Known Allergies Allergy Verified 10/18/24 13:34 [No Known Allergies*] Home Medications ?Medication ?Instructions ?Recorded ?Confirmed ?Last Taken ?Type cyanocobalamin (vitamin B-12) 100 100 mcg PO DAILY 05/11/20 12/15/24 Unknown History mcg tablet Exam Airway Mallampati Class: II TM Dist: <=3cm Neck ROM: Full Loose/Missing/Broken Teeth: No Heart: ok Lungs: ok Assessment and Plan Assessment Anesthesia Assessment: Anesthesia Plan Discussed Final Anesthetic Review Family History of Problems with Anesthesia: No History of Problems with Anesthesia: No NPO: Yes ASA Class: II Final Preanesthetic Review: No Changes in Pt Med Stat, Meds/Allgs Chart Reviewed, Consent Obtained/Reviewed and Anes Risks/Benef Reviewed Patient Risk: Intermediate Procedure Risk: Intermediate Anesthetic Plan Anesthetic Plan: Agree w/ Assess. and Plan and TIVA Disposition: Standard PACU
[2024-12-17 08:23] VITALS: BMI 29.0
[2024-12-17 08:49] VITALS: BP 132/86; PULSE 70; RESP 18; TEMP 35.8; O2SAT 98
[2024-12-17] MEDS: Lactated Ringers 1,000 ML 100 ML IVCONT (08:52)
[2024-12-17 10:35] VITALS: BP 110/71; PULSE 58; RESP 17; TEMP 36.1; O2SAT 98
--- NOTE | 2024-12-17 10:41 | P.BOP_ITS ---
Brief Operative Note Date of Service: 12/17/24 Pre-op diagnosis: GERD, Screening Post-op diagnosis: other (Hiatal hernia, Gastritis, Diverticulosis) Procedure: EGD with biopsies, Colonoscopy to the cecum and TI Surgeon: Emanuel Buenrostro MD Anesthesia: MAC Was an Music Ministries Director used for this Procedure?: No Estimated blood loss (mL): 2.0 Pathology: other (A. Gastric antrum) Condition: stable Disposition: PACU
[2024-12-17 10:50] VITALS: BP 105/70; PULSE 65; RESP 18; TEMP 36.7; O2SAT 100
--- NOTE | 2024-12-17 11:27 | OP_ITS ---
DATE OF SERVICE: 12/17/2024 SURGEON: Emanuel Buenrostro MD INDICATIONS: The patient presents for evaluation of gastroesophageal reflux, abdominal discomfort, personal history of colon polyps, and colorectal cancer screening. Full consent has been obtained from him for this, including risks of bleeding and perforation. PREOPERATIVE DIAGNOSIS: POSTOPERATIVE DIAGNOSIS: PROCEDURE PERFORMED: Esophagogastroduodenoscopy with biopsies and colonoscopy to the cecum. ESTIMATED BLOOD LOSS: COMPLICATIONS: ANESTHESIA: Medication used, monitored anesthesia care. ASSISTANTS: SPECIMENS: PREOPERATIVE DIAGNOSES: Gastroesophageal reflux, abdominal pain, colorectal cancer screening, personal history of colon polyps. POSTOPERATIVE DIAGNOSES: Gastroesophageal reflux, abdominal pain, colorectal cancer screening, personal history of colon polyps, hiatal hernia, gastritis, diverticulosis, and internal hemorrhoids. DESCRIPTION OF PROCEDURE: The patient was placed in the left lateral decubitus position. The Olympus video gastroscope was passed in the posterior oropharynx and upper esophagus under direct vision. The scope was passed slowly into the distal esophagus. The gastroesophageal junction appeared normal at 35 cm. There was no sign of any esophagitis, Yeh esophagus, nor varices. There was a moderate-sized hiatal hernia. The scope was advanced to the pylorus, and the duodenum was cannulated to the descending portion. The duodenum including the bulb appeared normal without mass or ulceration. The scope was withdrawn back in the stomach. The gastric antrum had areas of erythema and edema, but no erosions or ulceration. There was good peristalsis. Biopsies were obtained from the antrum. The scope was retroflexed visualizing the proximal stomach carefully, which appeared normal, without any sign of varices nor gastropathy. The scope was straightened and withdrawn back to the esophagus. The esophageal mucosa appeared normal. The scope was withdrawn from the patient. He was turned around for the colonoscopy. The digital rectal exam revealed no abnormalities. The Olympus video pediatric colonoscope was entered into the rectum and advanced easily to the cecum. Once in the cecum, I did identify normal-appearing cecal pouch with appendiceal orifice and normal-appearing ileocecal valve. The terminal ileum was cannulated and appeared normal. The scope was withdrawn back in the colon. The entire cecum and ileocecal valve appeared normal. The scope was slowly withdrawn assessing all mucosal surfaces carefully. After a fair amount of irrigation and suctioning, the preparation became very good throughout the colon. I did not visualize any sign of polyps, colitis, nor angiodysplasia. There was a mild amount of sigmoid diverticulosis. In the rectum, scope was retroflexed visualizing internal hemorrhoids, but no other pathology. The rectal mucosa appeared normal. The scope was straightened and withdrawn from the patient. He tolerated the procedure well and was returned to the recovery area in stable condition. IMPRESSION: 1. Hiatal hernia. 2. Gastritis. 3. Diverticulosis. 4. Internal hemorrhoids. PLAN: The results of the biopsies will be checked. He was advised to continue his daily omeprazole. He was advised to resume his aspirin tomorrow. He was advised to hopefully continue to refrain from alcohol long-term. I would recommend a repeat colonoscopy in 5 years. He will otherwise see me on a p.r.n. basis. MD KELLE Head/KEKE / [id number]
== END 2024-12-17 11:46 | disposition home or self-care (01) ==
PROVIDERS: PCP Internal Medicine; Visit Provider Internal Medicine
PROC: (CPT 43239; principal; 2024-12-17 09:30)
DX: Z12.11 Encounter for screening for malignant neoplasm of colon (principal); Z86.0101 Personal history of adenomatous and serrated colon polyps; K57.30 Diverticulosis of large intestine without perforation or abscess without bleeding; K64.8 Other hemorrhoids; R10.84 Generalized abdominal pain; K29.70 Gastritis, unspecified, without bleeding; K21.9 Gastro-esophageal reflux disease without esophagitis; K44.9 Diaphragmatic hernia without obstruction or gangrene; I10 Essential (primary) hypertension; E78.00 Pure hypercholesterolemia, unspecified; I25.10 Atherosclerotic heart disease of native coronary artery without angina pectoris; Z95.5 Presence of coronary angioplasty implant and graft; D45 Polycythemia vera; Z86.711 Personal history of pulmonary embolism; Z85.46 Personal history of malignant neoplasm of prostate; Z90.79 Acquired absence of other genital organ(s); G47.33 Obstructive sleep apnea (adult) (pediatric); F10.11 Alcohol abuse, in remission; Z79.82 Long term (current) use of aspirin; Z79.899 Other long term (current) drug therapy
CPT/HCPCS: 43239; G0105; 88305; 88313; 88342; J2003; J2704; J3010

== ENCOUNTER 2025-02-19 10:46 | Outpatient (AMB) | payer OTHER, SELFPAY ==
[2025-02-19 10:48] VITALS: BP 122/78; PULSE 79; TEMP 36.1; O2SAT 98; BMI 28.8
--- NOTE | 2025-02-19 10:48 | A.OFFPC_ITS ---
Vital Signs 02/19/25 10:48 Height 6 ft Weight 212 lb 2 oz BMI 28.8 BP 122/78 Blood Pressure Location Lt brachial Position Sitting Pulse 79 Pulse Source Pulse Oximeter Temp 97.0 F Temp Source Temporal Artery Scan Pulse Oximetry (%) 98 Oxygen Delivery Method Room Air Intake Visit Reasons: gerd, R leg numbness and knee pain Allergies No Known Allergies (No Known Allergies*) Allergy (Verified 02/19/25 10:52) Tobacco use date assessed: 02/19/25 Fall risk assessment: No Falls in past year Last assessed Fall Risk: 10/15/24 Dental Screening Dental Screen Date: 02/19/25 Did you have a dental visit in the last 12 months?: Yes Did you have a dental problem in the last 6 months where you did not have access to dental care?: No Was dental information given to patient?: Patient has dentist HPI gerd, R leg numbness and knee pain HPI Details 3 years of lower back pain from [place] having bilateral leg numbness but with R lower extremety weakness also .prompting for consult. NCV done showing lumbar radiculopathy. R upper back had a fall of a chair had a bruise . states ignored complains of pain on the R upper back [facility] Medical History Dizziness Epigastric pain Back pain Encounter for annual physical examination excluding gynecological examination in a patient older than 17 years Renal calculus Erectile dysfunction Hypertension Protein S deficiency Hypercholesterolemia Pulmonary embolism CAD (coronary artery disease) Prostate CA Arthritis Polycythemia vera Hiatal hernia GERD (gastroesophageal reflux disease) Sleep apnea Hx of syncope Surgical History History of appendectomy History of inferior vena caval filter placement Hx of colonoscopy History of esophagogastroduodenoscopy (EGD) H/O prostatectomy Hx of cardiac cath Family History Father Medical history unknown Mother Diabetes Asthma Hypertension Brother Dialysis patient Sister Schizophrenia Sister Diabetes Chronic mental illness Other Mental health disorder Social History Housing: Apartment Are you a primary director of critical care to a significant other at home: Yes (brother) Do you presently have visiting nurse or other home services: Yes Alcohol intake: current Alcohol intake frequency: former alcohol drinker Alcohol type: beer Comment: PCP aware ( neuropathy) Patient Tobacco Use Status: Never used Tobacco Tobacco use type: Cigarette Years Smoked: smoking marijuana e-Cigarette/Vaping Use: Never Used Second Hand Smoke Exposure: Yes Substance Use Type: Marijuana service: No Current occupational status: disabled Cognitive needs: No Hearing needs: No Vision needs: No Questionnaire PHQ-9 Over the last 2 weeks, how often have you been bothered by any of the following problems? 1. Little interest or pleasure in doing things: not at all 2. Feeling down, depressed, or hopeless: not at all 3. Trouble falling or staying asleep, or sleeping too much: not at all 4. Feeling tired or having little energy: not at all 5. Poor appetite or overeating: not at all 6. Feeling bad about yourself - or that you are a failure or have let yourself or your family down: not at all 7. Trouble concentrating on things, such as reading the newspaper or watching television: not at all 8. Moving or speaking so slowly that other people could have noticed. Or the opposite - being so fidgety or restless that you have been moving around a lot more than usual: not at all 9. Thoughts that you would be better off or of hurting yourself in some way: not at all Total score: 0 Source: Developed by Drs. Emanuel Pablo, Shonda Griffith, Ethan Vieyra and colleagues, with an educational adonay from [employer]. Thrive Questionnaire Date Thrive assessed: 02/19/25 I am a: Patient What is your living situation today?: I have a steady place to live Within the past 12 months, did the food you bought not last and you didn't have the money to get more?: Never true Within the past 12 months, did you worry whether your food would run out before you got money to buy more?: Never true Do you have trouble paying for medicines?: No Do you have trouble getting transportation to medical appointments?: No Do you have trouble paying your heating and electricity bill?: No Do you have trouble taking care of your child, family member or friend?: No Do you have trouble with day-to-day activities such as bathing, preparing meals, shopping, managing finances, etc.?: No Are you currently unemployed and looking for a job?: No Are you interested in more education?: No Currently or been in a relationship where the following occur: I choose not to answer THRIVE Score: 0 AUDIT C Alcohol Use Questionnaire (AUDIT-C) 1. How often do you have a drink containing alcohol?: 2-3 times a week 2. How many drinks containing alcohol do you have on a typical day when you are drinking?: 1 or 2 3. How often do you have six or more drinks on one occasion?: Never Total Score: 3 TINY-7 AMB Questionnaire TINY-7 Date TINY - 7 assessed: 08/20/24 Feeling nervous, anxious, or on edge: 3 = Nearly every day Not being able to stop or control worryin = Not at all Worrying too much about different things: 0 = Not at all Trouble relaxin = More than half the days Being so restless that it is hard to sit still: 0 = Not at all Becoming easily annoyed or irritable: 0 = Not at all Feeling afraid as if something awful might happen: 0 = Not at all Total TINY-7 score (0-4 normal; 5-9 mild; 10-14 moderate; 15-21 severe): 5 Source: Developed by Drs. Emanuel Pablo, Shonda Griffith, Ethan Vieyra and colleagues, with an educational adonay from [employer]. Physical exam (Primary Care) Vital Signs: Last Vital Signs Temp 97.0 F 02/19/25 10:48 Pulse 79 02/19/25 10:48 BP 122/78 02/19/25 10:48 Pulse Ox 98 02/19/25 10:48 Oxygen Delivery Method Room Air 02/19/25 10:48 BMI result Body Mass Index 28.8 Tobacco/Smoking Status: Tobacco use Status Tobacco use date assessed 02/19/25 02/19/25 10:54 Patient Tobacco Use Status Never used Tobacco 02/19/25 10:54 Tobacco use type Cigarette 02/19/25 10:54 e-Cigarette/Vaping Use Never Used 02/19/25 10:54 PHQ-9: PHQ-9 Score PHQ-9: Total score 0 02/19/25 11:02 Thrive Assessment: Date of Thrive Assessment Date Thrive assessed 02/19/25 02/19/25 10:54 Currently or been in a relationship where the following occur: I choose not to answer Const General: alert; No acute distress Eyes Conjunctivae: conjunctivae normal Resp Auscultation: clear to auscultation bilaterally Cardio Rate: regular rate Rhythm: regular rhythm GI Inspection: Yes normal to inspection Extrem General: Yes normal to inspection and No edema Coding Level of Care Code Est Pt Level 4 (56535) Complex EM visit Add On G2211 Diagnoses Erythrocytosis D75.1 Overweight (BMI 25.0-29.9) E66.3 Hypercholesterolemia E78.00 Coronary artery disease involving [place] coronary artery of [place] heart without angina pectoris I25.10 Associated angina: without angina Coronary Disease-Associated Artery/Lesion type: [place] artery [place] vs. transplanted heart: [place] heart Essential hypertension I10 Hypertension type: essential hypertension Generalized anxiety disorder F41.1 Elevated blood sugar R73.9 Lumbar radicular pain M54.16 Upper back pain on right side M54.9 Assessment & Plan Assessment & Plan (1) Erythrocytosis: Code(s): D75.1 - Secondary polycythemia Category: Medical Plan: Patient is being followed up by hematology oncology and recent blood work were within normal limits (2) Overweight (BMI 25.0-29.9): Code(s): E66.3 - Overweight Category: Medical Plan: Diet and exercise (3) Hypercholesterolemia: Code(s): E78.00 - Pure hypercholesterolemia, unspecified Category: Medical Plan: Avoid fried foods, chicken skin, eggs, butter margarine, pastries and meat. Be it pork or beef they have a lot of cholesterol LDL goal of less than 70 and triglyceride of less than 150 (4) CAD (coronary artery disease): Comment: follows w/PCP only-Cath 2019 shows nml coronaries Code(s): I25.10 - Atherosclerotic heart disease of [place] coronary artery without angina pectoris Category: Medical Qualifiers: Associated angina: without angina Coronary Disease-Associated Artery/Lesion type: [place] artery [place] vs. transplanted heart: [place] heart Qualified Code(s): I25.10 - Atherosclerotic heart disease of [place] coronary artery without angina pectoris Plan: Control the cholesterol, weight, blood pressure, continue with aspirin 81 mg once a day (5) Hypertension: Code(s): I10 - Essential (primary) hypertension Category: Medical Qualifiers: Hypertension type: essential hypertension Qualified Code(s): I10 - Essential (primary) hypertension Plan: Continue with blood pressure medication. Decrease salt intake and exercise on amlodipine 5 mg once a day metoprolol 25 mg twice a day (6) Generalized anxiety disorder: Code(s): F41.1 - Generalized anxiety disorder Category: Medical Plan: Stable (7) Elevated blood sugar: Code(s): R73.9 - Hyperglycemia, unspecified Category: Medical Plan: Advised to get repeat blood work for blood sugar with a hemoglobin A1c (8) Lumbar radicular pain: Comment: Right Code(s): M54.16 - Radiculopathy, lumbar region Category: Medical Plan: Noted EMG and nerve conduction test done showing lumbar radicular pain/problem and so will order for an MRI plus x-ray of the lumbar spine. (9) Upper back pain on right side: Comment: This was from a fall 2023 Code(s): M54.9 - Dorsalgia, unspecified Category: Medical Plan: Will order for the x-ray of the chest as well as scapular area. Orders: Orders Complete Blood Count Auto Diff 3 Months E78.00 - Pure hypercholesterolemia, unspecified Lipid Panel 3 Months E78.00 - Pure hypercholesterolemia, unspecified XR lumbar spine 2-3V Today M54.16 - Radiculopathy, lumbar region PT Evaluation and Treatment Today M54.16 - Radiculopathy, lumbar region XR chest 2V Today M54.9 - Dorsalgia, unspecified Hemoglobin A1c 3 Months E78.00 - Pure hypercholesterolemia, unspecified MR lumbar spine wo con Today M54.16 - Radiculopathy, lumbar region XR scapula RT Today M54.9 - Dorsalgia, unspecified
--- OUTSIDE RECORDS SUMMARY | 2025-02-19 11:26 | XMS_ITS | Clinical Summary ---
[facility] Address [address] [place] [address] Care Team Providers Care Title Searcher Name Role Phone Unavailable Primary Care Provider [...] - 2023-25 season) 2024 Influenza Vaccine (#1) 2025 5, 06/29/2014, 04/14/2013, Additional history exists RSV [...]
== END 2025-02-19 12:47 | disposition home or self-care (01) ==
LOC: HO.HMCH 10:47
PROVIDERS: PCP Internal Medicine; Visit Provider Internal Medicine
DX: D75.1 Secondary polycythemia (principal); E66.3 Overweight; E78.00 Pure hypercholesterolemia, unspecified; I25.10 Atherosclerotic heart disease of native coronary artery without angina pectoris; I10 Essential (primary) hypertension; F41.1 Generalized anxiety disorder; R73.9 Hyperglycemia, unspecified; M54.16 Radiculopathy, lumbar region; M54.9 Dorsalgia, unspecified

== ENCOUNTER → 2025-02-19 10:46 | Outpatient (BNVA) | payer OTHER, SELFPAY | PROVIDERS: PCP Internal Medicine; Visit Provider Internal Medicine | DX: D75.1 Secondary polycythemia (principal); E66.3 Overweight; E78.00 Pure hypercholesterolemia, unspecified; I25.10 Atherosclerotic heart disease of native coronary artery without angina pectoris; I10 Essential (primary) hypertension; F41.1 Generalized anxiety disorder; R73.9 Hyperglycemia, unspecified; M54.16 Radiculopathy, lumbar region; M54.9 Dorsalgia, unspecified; Z79.82 Long term (current) use of aspirin; Z79.899 Other long term (current) drug therapy; Z13.30 Encounter for screening examination for mental health and behavioral disorders, unspecified | CPT/HCPCS: 96127; 99212 ==

== ENCOUNTER → 2025-03-05 16:32 | Outpatient (BNV) | payer OTHER, SELFPAY | PROVIDERS: PCP Internal Medicine; Visit Provider Radiology Diagnostic Radiology | DX: M48.061 Spinal stenosis, lumbar region without neurogenic claudication (principal) | CPT/HCPCS: 72148 ==

== ENCOUNTER 2025-03-05 16:37 | Outpatient (REF) | payer OTHER, SELFPAY ==
--- NOTE | ~2025-03-05 | MR_ITS ---
EXAM: MRI Lumbar Spine without Contrast. TECHNIQUE: Multiplanar multisequence MR imaging was performed through the lumbar spine without contrast. INDICATION: Lumbar radiculopathy PRIOR: X-ray December 30, 2017 and MRI May 25, 2010 FINDINGS: 5 non-rib bearing lumbar segments are present on x-ray Marrow and end-plates: Modic 2 endplate changes are present at T12-L1, L2-3, L3-4, L4-5, and L5-S1. There are Schmorl's nodes at inferior L1, T12-L1, posterior inferior L2, posterior superior L3, inferior L3, superior L4 Alignment: There is subtle retrolisthesis at T12-L1, L1-2, and L2-3. Soft tissues: Large exophytic benign simple cyst is partially imaged in the right kidney. Conus: The termination of conus medullaris is within normal limits at the level of upper L1. T12-L1: There is a moderate loss of disc height and broad-based disc bulge with a central extrusion not resulting in spinal stenosis or foraminal narrowing. L1-L2: There is mild loss of disc height and circumferential broad-based disc bulge resulting in mild spinal stenosis. There is ligamentum flavum thickening. There is mild narrowing of the subarticular zones without foraminal narrowing, similar to the prior. L2-L3: There is increased moderate loss of disc height and circumferential broad-based disc bulge with ligament flavum thickening and mild facet osteoarthritis with mild spinal stenosis. There is right subarticular zone narrowing with possible encroachment of right L3 nerve root. There is minimal foraminal narrowing. L3-L4: There is no degenerative change with mild to moderate loss disc height and circumferential broad-based bulge with moderate ligament flavum thickening and facet degeneration resulting in mild spinal stenosis and moderate bilateral subarticular zone narrowing. There is minimal foraminal narrowing. L4-L5: There is similar to the prior. There is mild broad-based disc bulge without spinal stenosis. There is minimal left subarticular zone narrowing. There is moderate thickening of the ligamentum flavum. There is minimal right foraminal narrowing without left-sided narrowing. L5-S1: Degenerative changes have increased. There is severe disc space narrowing with endplate osteophytes not resulting in spinal stenosis. There is similar degree of mild bilateral foraminal narrowing. MR/MR lumbar spine wo con IMPRESSION: Interval increased degenerative disc disease and degenerative endplate changes. L1-L2: There is mild spinal stenosis. L2-L3: There is mild spinal stenosis with right subarticular zone narrowing with possible encroachment of right L3 nerve root. L3-L4: There is mild spinal stenosis and moderate bilateral subarticular zone narrowing mildly encroaching on the L4 nerve roots. Electronically signed by: Cruzito Sheridan MD 03/05/2025 05:32 PM EDT
--- OUTSIDE RECORDS SUMMARY | 2025-03-05 16:40 | XMS_ITS | Clinical Summary ---
[facility] Address [address] [place] [address] Care Team Providers Care Marine Mechanic Name Role Phone Unavailable Primary Care Provider Unavailabl e Surgical History Surgery Date Site/Laterality Comments APPENDECTOMY PROCEDURE: [place] APPENDEC INDICATED PURPOSE OTH MAJOR PX NOT [...] COVID-19 Vaccine (1 - 2023- season) 2024 Depression Screening 08/06/2024 Influenza Vaccine (#1) 2025 5, 06/29/2014, 04/14/2013, [...]
== END 2025-03-05 16:38 | disposition home or self-care (01) ==
LOC: HO.MRI 16:37
PROVIDERS: PCP Internal Medicine; Visit Provider Internal Medicine
DX: M54.16 Radiculopathy, lumbar region (principal)
CPT/HCPCS: 72148

== ENCOUNTER 2025-05-21 13:36 | Outpatient (AMB) | payer OTHER, SELFPAY ==
--- NOTE | 2025-05-21 13:51 | A.OFFPC_ITS ---
Vital Signs 05/21/25 13:52 05/21/25 14:09 Height 6 ft Weight 211 lb BMI 28.6 BP 146/80 H 114/70 Blood Pressure Location Lt brachial Lt brachial Position Sitting Sitting Pulse 65 Pulse Source Pulse Oximeter Pulse Oximetry (%) 97 Oxygen Delivery Method Room Air Intake Visit Reasons: ANNUAL Allergies No Known Allergies (No Known Allergies*) Allergy (Verified 05/21/25 13:52) Medication List - Last Reconciled 05/21/25 by Delmy Quiroz MD amlodipine 5 mg PO DAILY aspirin 81 mg PO DAILY cyclobenzaprine 5 mg PO TID PRN gabapentin 200 mg (2 x 100 mg) PO BEDTIME MDD 200mg magnesium oxide 400 mg PO DAILY MDD 400mg metoprolol tartrate 50 mg PO BID multivit with dby-QC-kiywfiob 400-370 mcg (One-A-Day Men's 50 Plus) tabs PO omeprazole 20 mg PO QAM 90 days rosuvastatin 40 mg PO DAILY sennosides-docusate sodium 8.6-50 mg (Senna Plus) 2 tab-caps (2 x 8.6-50 mg) PO BEDTIME PRN 30 days sumatriptan succinate 50 mg orally; take only with the onset of migraines. May take one additional tablet 2 hours after the first tablet. triamcinolone acetonide 0.5% 1 appl topical BID Tobacco use date assessed: 02/19/25 Fall risk assessment: No Falls in past year Last assessed Fall Risk: 05/21/25 Dental Screening Dental Screen Date: 02/19/25 HPI ANNUAL HPI Details dizzy and nausea PFSH Medical History Dizziness Epigastric pain Back pain Encounter for annual physical examination excluding gynecological examination in a patient older than 17 years Renal calculus Erectile dysfunction Hypertension Protein S deficiency Hypercholesterolemia Pulmonary embolism CAD (coronary artery disease) Prostate CA Arthritis Polycythemia vera Hiatal hernia GERD (gastroesophageal reflux disease) Sleep apnea Hx of syncope Surgical History History of appendectomy History of inferior vena caval filter placement Hx of colonoscopy History of esophagogastroduodenoscopy (EGD) H/O prostatectomy Hx of cardiac cath Family History Father Medical history unknown Mother Diabetes Asthma Hypertension Brother Dialysis patient Sister Schizophrenia Sister Diabetes Chronic mental illness Other Mental health disorder Social History (Updated 05/21/25 @ 14:14 by Delmy Quiroz MD) Housing: Apartment Are you a primary live in caregiver to a significant other at home: Yes (brother) Do you presently have visiting nurse or other home services: Yes Alcohol intake: current Alcohol intake frequency: former alcohol drinker Alcohol type: beer Comment: PCP aware ( neuropathy)2x a week 2 beers (05/2025) Patient Tobacco Use Status: Never used Tobacco Tobacco use type: Cigarette Years Smoked: smoking marijuana e-Cigarette/Vaping Use: Never Used Second Hand Smoke Exposure: Yes Substance Use Type: Marijuana service: No Current occupational status: disabled Cognitive needs: No Hearing needs: No Vision needs: No Questionnaire PHQ-9 Over the last 2 weeks, how often have you been bothered by any of the following problems? 1. Little interest or pleasure in doing things: not at all 2. Feeling down, depressed, or hopeless: not at all 3. Trouble falling or staying asleep, or sleeping too much: not at all 4. Feeling tired or having little energy: not at all 5. Poor appetite or overeating: not at all 6. Feeling bad about yourself - or that you are a failure or have let yourself or your family down: not at all 7. Trouble concentrating on things, such as reading the newspaper or watching television: not at all 8. Moving or speaking so slowly that other people could have noticed. Or the opposite - being so fidgety or restless that you have been moving around a lot more than usual: not at all 9. Thoughts that you would be better off or of hurting yourself in some way: not at all Total score: 0 Depression Screening Interpretation: Negative Depression Screening Done: Yes Source: Developed by Drs. Emanuel Pablo, Shonda Griffith, Ethan Vieyra and colleagues, with an educational adonay from [employer]. Thrive Questionnaire Date Thrive assessed: 02/19/25 I am a: Patient What is your living situation today?: I have a steady place to live Within the past 12 months, did the food you bought not last and you didn't have the money to get more?: Never true Within the past 12 months, did you worry whether your food would run out before you got money to buy more?: Never true Do you have trouble paying for medicines?: No Do you have trouble getting transportation to medical appointments?: No Do you have trouble paying your heating and electricity bill?: No Do you have trouble taking care of your child, family member or friend?: No Do you have trouble with day-to-day activities such as bathing, preparing meals, shopping, managing finances, etc.?: No Are you currently unemployed and looking for a job?: No Are you interested in more education?: No Currently or been in a relationship where the following occur: No concerns reported THRIVE Score: 0 AUDIT C Alcohol Use Questionnaire (AUDIT-C) 1. How often do you have a drink containing alcohol?: 2-3 times a week 2. How many drinks containing alcohol do you have on a typical day when you are drinking?: 1 or 2 3. How often do you have six or more drinks on one occasion?: Never Total Score: 3 TINY-7 AMB Questionnaire TINY-7 Date TINY - 7 assessed: 08/20/24 Source: Developed by Drs. Emanuel Pablo, Shonda Griffith, Ethan Vieyra and colleagues, with an educational adonay from [employer]. Review of Systems Const Denies poor appetite and Denies weakness Eyes Denies no additional complaints ENT Reports Normal hearing present, Denies dizziness, Denies nasal congestion, Denies tinnitus and Denies sore throat Card Denies chest pain, Denies syncope, Denies rapid heart rate and Denies dyspnea Resp Denies cough and Denies dyspnea GI Denies change in stool character, Reports constipation, Denies diarrhea, Denies nausea and Denies vomiting Denies dysuria and Denies urinary frequency Neuro Reports Normal hearing present, Denies confusion, Denies dizziness, Denies syncope and Denies weakness Psych Denies confusion Physical exam (Primary Care) Vital Signs: Last Vital Signs Pulse 65 05/21/25 13:52 BP 114/70 05/21/25 14:09 Pulse Ox 97 05/21/25 13:52 Oxygen Delivery Method Room Air 05/21/25 13:52 BMI result Body Mass Index 28.6 Tobacco/Smoking Status: Tobacco use Status Tobacco use date assessed 02/19/25 05/21/25 13:57 Patient Tobacco Use Status Never used Tobacco 05/21/25 14:14 Tobacco use type Cigarette 05/21/25 14:14 e-Cigarette/Vaping Use Never Used 05/21/25 14:14 PHQ-9: PHQ-9 Score PHQ-9: Total score 0 05/21/25 14:07 Depression Screening Interpretation: Negative Thrive Assessment: Date of Thrive Assessment Date Thrive assessed 02/19/25 05/21/25 13:57 Currently or been in a relationship where the following occur: No concerns reported Const General: No confusion Orientation/consciousness: No confusion HENMT Head: Yes normocephalic Ears: external ears normal and TM's normal bilaterally Face and sinus: Yes normal facial exam Mouth: moist mucous membranes Throat: Yes tonsils normal Eyes Conjunctivae: conjunctivae normal Pupils: Equal, round and reactive pupils present and Pupil accommodation reflex normal Direct Ophthalmoscopy: normal light reflex Neck Neck: No lymphadenopathy Thyroid: Thyroid normal Chest Chest palpation & inspection: normal inspection of the chest Resp Effort & Inspection: normal respiratory effort and no audible wheezes Auscultation: clear to auscultation bilaterally, no crackles, no wheezes and lung sounds not diminished Cardio Rate: regular rate Rhythm: regular rhythm Peripheral pulses: radial pulses present and dorsalis pedis present GI Palpation (GI): no masses Auscultation: normal bowel sounds and normoactive bowel sounds Rectal Exam - Male: Yes deferred Skin General skin exam: no rashes or lesions noted Rashes: no rashes Neuro General: No confusion Cranial nerves: Yes Equal, round and reactive pupils present and Yes Normal hearing present Cognition (Neuro): normal cognition Gait exam (Neuro): Normal gait present Motor exam (neuro): 5/5 motor strength present throughout Deep tendon reflexes (DTR's): Right brachioradialis reflex intensity grade: 2+, Left brachioradialis reflex intensity grade: 2+, Right patellar reflex intensity grade: 2+ and Left patellar reflex intensity grade: 2+ Extrem General: No edema Office Procedures Flu Questionnaire Does the patient have a severe egg allergy?: No Does the patient have severe life threatening allergies?: No Does the patient have a fever or illness today?: No Has the patient ever had Guillain-[place] Syndrome?: No Has the patient ever had any past reaction to a flu shot?: No Immunizations Fluarix [id number] (PF) 45 mcg (15 mcg x 3)/0.5 mL IM syringe Performing Provider: Delmy Quiroz MD Performing Location: [facility] Administered by: Caroline Reeves CMA on 05/21/25 13:59 Dose Route Admin Location Dispensed Lot Number Expiration Date NDC [employer] 0.5 mL IM Left Deltoid 0.5 mL [id number] 02/02/26 [id number] VIS Given Date VIS Provided VIS Publication Date 05/21/25 Single Vaccine 24 Eligibility Eligibility Date Funding Source Not [facility] Eligible 05/21/25 Private Coding Level of Care Code Est Pt Prev Care >65y(33561) Diagnoses Annual physical exam Z00.00 Lumbar radicular pain M54.16 Erythrocytosis D75.1 Renal calculus N20.0 Gastroesophageal reflux disease without esophagitis K21.9 Esophagitis presence: without esophagitis Coronary artery disease involving [place] coronary artery of [place] heart without angina pectoris I25.10 Associated angina: without angina Coronary Disease-Associated Artery/Lesion type: [place] artery [place] vs. transplanted heart: [place] heart Essential hypertension I10 Hypertension type: essential hypertension Hypercholesterolemia E78.00 Generalized anxiety disorder F41.1 Assessment & Plan Assessment & Plan (1) Annual physical exam: Code(s): Z00.00 - Encounter for general adult medical examination without abnormal findings Category: Medical Plan: Patient is advised to eat healthy, keep well hydrated, keep active and have ad equate sleep. (2) Lumbar radicular pain: Comment: Right Code(s): M54.16 - Radiculopathy, lumbar region Category: Medical Plan: Discussed about options of referral to spine and sports (3) Erythrocytosis: Code(s): D75.1 - Secondary polycythemia Category: Medical Plan: Resolving (4) Renal calculus: Code(s): N20.0 - Calculus of kidney Category: Medical Plan: Keep well hydrated (5) GERD (gastroesophageal reflux disease): Comment: EGD August 200608/2024 Patulous esophagus with mildly disorganized peristalsis consistent with esophageal dysmotility. 2. Moderate-sized type I hiatal hernia with severe gastroesophageal reflux. 3. Multiple tiny foci of contrast pooling in the fundus and body of the stomach that may represent small mucosal ulcerations. Recommend correlation with EGD. 4. Multilevel degenerative changes noted throughout the cervical spi Code(s): K21.9 - Gastro-esophageal reflux disease without esophagitis Category: Medical Qualifiers: Esophagitis presence: without esophagitis Qualified Code(s): K21.9 - G oneil-esophageal reflux disease without esophagitis Plan: Avoid the foods that causes that usually spicy foods, tomato products, juices, coffee, soda and foods that your sensitive to. After eating do not lie down, allow 3-4 hours before in lie down. And keep the head of bed above 30 degrees to avoid the acid from going up. (6) CAD (coronary artery disease): Comment: follows w/PCP only-Cath 2019 shows nml coronaries Code(s): I25.10 - Atherosclerotic heart disease of [place] coronary artery without angina pectoris Category: Medical Qualifiers: Associated angina: without angina Coronary Disease-Associated Artery/Lesion type: [place] artery [place] vs. transplanted heart: [place] heart Qualified Code(s): I25.10 - Atherosclerotic heart disease of [place] coronary artery without angina pectoris Plan: Control the cholesterol, weight, blood pressure (7) Hypertension: Code(s): I10 - Essential (primary) hypertension Category: Medical Qualifiers: Hypertension type: essential hypertension Qualified Code(s): I10 - Essential (primary) hypertension Plan: Continue with blood pressure medication. Decrease salt intake and exercise (8) Hypercholesterolemia: Code(s): E78.00 - Pure hypercholesterolemia, unspecified Category: Medical Plan: Avoid fried foods, chicken skin, eggs, butter margarine, pastries and meat. Be it pork or beef they have a lot of cholesterol on rosuvastatin 40 mg once a day (9) Generalized anxiety disorder: Code(s): F41.1 - Generalized anxiety disorder Category: Medical Plan: Continue with present medication Plan History of Present Illness The patient is a 65-year-old male presenting with a wellness visit and management of chronic conditions. The patient has a history of hypertension and hypercholesterolemia, which have been managed over the years, with recent LDL cholesterol noted at 58 mg/dL. He also has a history of gastroesophageal reflux disease (GERD) and coronary artery disease, though catheterization in 2019 showe d normal coronary arteries. The patient experienced nephrolithiasis and a pulmonary embolism in 2004. He also has a history of anxiety disorder and a cervical spine fracture. Polycythemia has been noted, along with a tubular adenoma of the colon, with the last colonoscopy performed in December 2024. In February, an MRI of the lower back showed increased degenerative disc changes and mild spinal stenosis from L1 to L4. The patient has reported limitations in mobility and leg pain associated with these findings. Recent blood work revealed normal counts and electrolytes, with an elevated blood glucose level of 130 mg/dL. Health Maintenance - Colonoscopy performed in December 2024 for tubular adenoma surveillance - Recent blood work in December showed normal counts and electrolytes, but noted elevated blood glucose at 130 mg/dL - LDL cholesterol at 58 mg/dL as of last year - Received flu shot recently - Discussion of shingles vaccination was done; patient had second shingles shot last month - Pneumonia vaccination was last given in 2017; update discussed Social History - Alcohol intake: Consumes alcohol occasionally, approximately twice a week, with two beers each time - Smoking: No tobacco use - Marijuana: Daily use noted - No employment status or other family status discussed Review of Systems - General: Reports episodes of dizziness - Cardiovascular: Reports chest tightness but denies chest pain - Respiratory: Reports occasional shortness of breath - Gastrointestinal: Reports constipation - Neurological: Reports daily morning stiffness, worsening by inactivity - Musculoskeletal: Reports back pain with leg pain Physical Exam General: Cooperative, healthy appearing, comfortable, no acute distress and well developed Orientation: Patient oriented x3 Limitations: Limited mobility due to back issues, difficulty walking Head: Normal to inspection Ears: Hearing grossly normal bilaterally Nose: Normal external nose present Face and sinus: Normal facial exam Eyes: Appearance normal, both eyes and all related structures; requires glasses for vision Neck: Normal visual inspection and Yes full ROM Respiratory: Normal respiratory effort, but reports shortness of breath and chest tightness; clear to auscultation bilaterally Cardiovascular: Regular rate and rhythm. Normal S1 and S2 GI: Normal to inspection. Soft to palpation and nontender; reports constipation Skin: No rashes or lesions noted; scar on back causing daily pain Neuro: Patient oriented x3; reports dizziness and stiffness upon waking Extremities: Normal to inspection; reports leg pain and burning sensation in feet due to nerve issues Results - MRI of the lower back: Increased degenerative disc changes, mild spinal stenosis L1-L4, narrowing at L3 and L4 - December blood work: Normal counts and electrolytes; elevated glucose at 130 mg/dL - LDL cholesterol last recorded at 58 mg/dL Plan Patient was informed and verbally consented to the use of an ambient scribe for clinic note documentation during this visit. 1. Hypertension The management of hypertension continues to be under control with current therapies. 2. Hypercholesterolemia Continue management as LDL is well-controlled. 3. Gastroesophageal Reflux Disease (Gerd) Current management to continue due to stability. 4. Coronary Artery Disease Continued risk stratification and monitoring given normal previous angiographic findings. 5. Nephrolithiasis No active stone issues; historical note. 6. Pulmonary Embolism Previous episode acknowledged. 7. Anxiety Disorder Monitoring and outpatient follow-up. 8. Cervical Spine Fracture Awaiting updates, no immediate concerns reported. 9. Polycythemia Monitored per protocol. 10. Tubular Adenoma Of The Colon Follow-up colonoscopy scheduled per routine surveillance. 11. Degenerative Disc Disease Referral being made for surgical consideration and intervention. Discussion Notes I discussed the various findings and plans with the patient. We talked about the importance of continuing the current management plans for hypertension and hypercholesterolemia. The patient was informed about the implications of the MRI findings and the necessity of consulting a neurosurgeon for further evaluation of the spinal issues. Additionally, the importance of follow-up for previously diagnosed conditions and preventive care measures such as vaccinations was emphasized. The patient agreed to the outlined management plan and acknowledged understanding the recommendations provided. Patient Instructions - Drink plenty of water every day. - Follow up with the pheresis specialist as scheduled. - Monitor blood pressure regularly at home. - Take prescribed medications as directed. - Limit alcohol intake to twice a week or less. - Stop smoking marijuana or consider reducing to decrease cancer risk. - Follow up for bloodwork and x-ray prior to the next appointment. - Ensure to schedule for vaccines as discussed. - Report any sudden worsening of symptoms immediately. Orders: Orders Influenza [id number] Immunization Today Z23 - Encounter for immunization XR chest 2V Today M54.9 - Dorsalgia, unspecified Referrals Neuro Spine Referral M54.16 - Radiculopathy, lumbar region
[2025-05-21 13:52] VITALS: BP 146/80; PULSE 65; O2SAT 97; BMI 28.6
[2025-05-21 14:09] VITALS: BP 114/70
== END 2025-05-21 14:28 | disposition home or self-care (01) ==
LOC: HO.HMCH 13:37
PROVIDERS: PCP Internal Medicine; Visit Provider Internal Medicine
DX: Z00.00 Encounter for general adult medical examination without abnormal findings (principal); M54.16 Radiculopathy, lumbar region; D75.1 Secondary polycythemia; N20.0 Calculus of kidney; K21.9 Gastro-esophageal reflux disease without esophagitis; I25.10 Atherosclerotic heart disease of native coronary artery without angina pectoris; I10 Essential (primary) hypertension; E78.00 Pure hypercholesterolemia, unspecified; F41.1 Generalized anxiety disorder; Z23 Encounter for immunization

== ENCOUNTER → 2025-05-21 13:36 | Outpatient (BNVA) | payer OTHER, SELFPAY | PROVIDERS: PCP Internal Medicine; Visit Provider Internal Medicine | DX: Z00.00 Encounter for general adult medical examination without abnormal findings (principal); I10 Essential (primary) hypertension; M54.16 Radiculopathy, lumbar region; D75.1 Secondary polycythemia; N20.0 Calculus of kidney; K21.9 Gastro-esophageal reflux disease without esophagitis; I25.10 Atherosclerotic heart disease of native coronary artery without angina pectoris; E78.00 Pure hypercholesterolemia, unspecified; F41.1 Generalized anxiety disorder; Z23 Encounter for immunization; Z86.711 Personal history of pulmonary embolism | CPT/HCPCS: 90471; 90656; 96127; 99397 ==

== ENCOUNTER 2025-05-29 12:47 | Outpatient (AMB) | payer OTHER, SELFPAY ==
--- NOTE | 2025-05-29 12:58 | A.SPINEOV_ITS ---
Vital Signs 05/29/25 13:02 Height 6 ft Weight 211 lb BMI 28.6 Intake Visit Reasons: lumbar radiculopathy Intake Note: Mr. Kimble is here today c/o Right leg numbness Radiating all the way down to the toes. Sustainability Executive Director Required: No Allergies No Known Allergies (No Known Allergies*) Allergy (Verified 05/29/25 13:02) Physical Exam Vital Signs: BMI result Body Mass Index 28.6 Assessment & Plan Assessment & Plan (1) Right leg numbness: Code(s): R20.0 - Anesthesia of skin Category: Medical Plan Mr Kimble is here in follow-up today. This is a gentleman known to us from a follow up on a cervical spine fracture a few years ago. Please see the note for the specifics of that problem. It comes in today for evaluation after lumbar MRI was ordered for consideration of numbness in his right leg that he is having. He tells me that he has had it for few years at least. It started rather abruptly at the same time he started having pain in his chest and in his upper abdomen. At that time he noted that he thought he might be having a heart attack or something and went to the emergency room. His heart was okay during that visit, it was suspected he had GERD and he has been following up with gastroenterology. He was told to was secondary to drinking and has for the most part quit drinking since all of this started. Unfortunately the symptoms are not getting better. What he describes it as a pain in the middle of his back in his upper back as well as numbness which radiates around to his chest, and there is a numbness that travels down his whole right leg similarly into his foot. His foot will feel weak in his leg will often give out underneath him. He does not report any lower back pain and has no radicular pain down the legs. He does get a burning sensation on the bottom of his foot from time to time. He does have some issues with incontinence, mostly with urine, but he attributes this to his prostatectomy. He told me he underwent an EMG at some point and it revealed he did not have any particular problem with the nerves on the right leg. On exam today, he is able to get up out of a chair independently walk down the hallway with normal gait. He has somewhat unsteady with tandem gait walking. His strength is normal in the upper extremities, does have weakness of his right hip flexion which I would rate as 4-5. Distal lower extremity strength is full. Reflexes normal in the upper extremities, slightly brisk in the left patella and there maybe a beat of clonus in the left ankle. His lumbar MRI done here at [facility] shows some [id number] degenerative changes but nothing significant to explain weakness and numbness of his right leg. There is no significant central canal stenosis. I am going to order a thoracic MRI as he could be presenting with a thoracic myelopathy given his symptoms of whole right leg numbness, numbness in the middle of his back radiating around to his chest as well as some degree of incontinence. It is also worth checking his cervical spine given the previous history of fracture, and it is well-known that a myelopathy can present with strictly lower extremity symptoms occasionally. I can call him with the results. Total amount of time spent in this visit was 20 minutes in discussion of symptoms, lumbar imaging results and subsequent plan of care Jim Manuel MD,PhD [facility] Orders: Orders MR thoracic spine wo con Today R20.0 - Anesthesia of skin MR cervical spine wo con Today R20.0 - Anesthesia of skin Coding Level of Care Code Est Pt Level 3 (04965) Diagnoses Right leg numbness R20.0
[2025-05-29 13:02] VITALS: BMI 28.6
--- OUTSIDE RECORDS SUMMARY | 2025-05-29 14:42 | XMS_ITS | Clinical Summary ---
[facility] Address [address] [place] [address] Care Team Providers Care Information Resources Manager Name Role Phone Unavailable Primary Care Provider Unavailabl e Surgical History Surgery Date Site/Laterality Comments APPENDECTOMY PROCEDURE: [place] APPENDEC INDICATED PURPOSE OTH MAJOR PX NOT [...] 2009 Zoster Vaccines (1 of 2) 2009 Depression Screening 08/06/2024 COVID-19 Vaccine (1 - 2023-25 season) 2025 Influenza Vaccine (#1) 2025 5, 06/29/2014, 04/14/2013, [...]
== END 2025-05-29 13:26 | disposition home or self-care (01) ==
LOC: HO.HNS 12:49
PROVIDERS: PCP Internal Medicine; Referring Provider Internal Medicine; Visit Provider Physician Assistant
DX: R20.0 Anesthesia of skin (principal)
CPT/HCPCS: 99213

== ENCOUNTER → 2025-05-29 12:47 | Outpatient (BNVA) | payer OTHER, SELFPAY | PROVIDERS: PCP Internal Medicine; Referring Provider Internal Medicine; Visit Provider Physician Assistant | DX: R20.0 Anesthesia of skin (principal); Z87.81 Personal history of (healed) traumatic fracture | CPT/HCPCS: 99212 ==

== ENCOUNTER 2025-06-03 10:37 | Outpatient (REF) | payer OTHER, SELFPAY ==
--- NOTE | ~2025-06-03 | XR_ITS ---
EXAMINATION: XR CHEST CLINICAL INFORMATION: M54.9 - Dorsalgia, unspecified COMPARISON: March 24, 2022. TECHNIQUE: PA and lateral views FINDINGS: No consolidation, pleural fissure pneumothorax. Cardiomediastinal silhouette size is normal. Multilevel spondylosis. XR/XR chest 2V IMPRESSION: No acute airspace disease. Stable chest. Electronically signed by: Anegl Naqvi MD 06/03/2025 11:01 AM EDT
[2025-06-03 11:13] LABS: MANUAL DIFF FLAG NO
[2025-06-03 11:49] LABS: Hematocrit 51.9 % (42.0-52.0); Hemoglobin 17.3 g/dl (14.0-18.0); Imm Gran Abs Auto 0.01 X10*3/uL (0.00-0.03); Imm Gran Pct Auto 0.1 % (0.0-0.4); Lymphocytes Absolute Auto 2.5 X10*3/uL (1.2-4.9); Mean Corpuscular HGB Conc 33.3 g/dl (31.0-36.0); Mean Corpuscular Hemoglobin 30.0 pg (27.0-33.0); Mean Corpuscular Volume 90.1 fL (80.0-98.0); NRBC Abs Auto 0.000 X10*3/uL (0.0-0.012); NRBC Pct Auto 0.0 /100WBC (0.0-0.2); Platelet Count 163 X10*3/uL (160-400); Red Blood Count 5.76 X10*6/uL (4.60-5.80); Reticulocytes Absolute 0.116 X10*6/uL (0.026-0.095); White Blood Count 7.3 X10*3/uL (4.8-10.8)
[2025-06-03 12:24] LABS: Appearance Urine Clear; Glucose Urine UA Negative (Negative); PH 7.0 (5.0-9.0); Specific Gravity - Urine 1.020 (1.005-1.025); UMIC TRIGGER UACC YES
[2025-06-03 12:38] LABS: Alanine Aminotransferase 62 U/L (0-40); Albumin Level 4.8 g/dL (3.5-5.0); Alkaline Phosphatase 88 U/L (39-117); Anion Gap 12 (12-20); Aspartate Amino Transferase 51 U/L (5-37); Blood Urea Nitrogen 14 mg/dL (9-16); Calcium 9.4 mg/dL (8.4-10.2); Carbon Dioxide 28 mmol/L (22-29); Chloride 106 mmol/L (96-108); Cholesterol 117 mg/dL (<200); Estimated Glomerular Filt Rate > 60; HDL Cholesterol 36 mg/dL (>40); Iron 180 mcg/dL (45-160); Percent Iron Saturation 45 % (15-50); Potassium 3.6 mmol/L (3.3-5.1); Sodium 142 mmol/L (135-145); Total Iron Binding Capacity 397 mcg/dL (228-428); Total Protein 7.9 g/dL (6.5-8.0); Triglycerides 131 mg/dL (<150); Unsaturated Iron Binding 217 ug/dL
[2025-06-03 12:43] LABS: Ferritin 41 ng/mL (20-250); Free T4 (Free Thyroxine) 0.93 ng/dL (0.71-1.85); Thyroid Stimulating Hormone 2.12 uIU/mL (0.32-4.0)
[2025-06-03 13:00] LABS: Folate 11.8 ng/mL (> or = 4.0); Vitamin B12 460 pg/mL (200-900)
--- OUTSIDE RECORDS SUMMARY | 2025-06-03 13:12 | XMS_ITS | Clinical Summary ---
[facility] Address [address] [place] [address] Care Team Providers Care Service Promoter Salesperson Name Role Phone Unavailable Primary Care Provider Unavailabl e Surgical History Surgery Date Site/Laterality Comments APPENDECTOMY PROCEDURE: [place] APPENDEC INDICATED PURPOSE OTH MAJOR PX NOT [...]
== END 2025-06-03 10:38 | disposition home or self-care (01) ==
LOC: HO.XRAY 10:37
PROVIDERS: PCP Internal Medicine; Visit Provider Internal Medicine
DX: Z13.1 Encounter for screening for diabetes mellitus (principal); M54.9 Dorsalgia, unspecified; R32 Unspecified urinary incontinence; E78.00 Pure hypercholesterolemia, unspecified
CPT/HCPCS: 36415; 71046; 80053; 80061; 81001; 82607; 82728; 82746; 83036; 83540; 84439; 84443; 85025; 85045; 85652; 86140

== ENCOUNTER → 2025-06-03 10:44 | Outpatient (BNV) | payer OTHER, SELFPAY | PROVIDERS: PCP Internal Medicine; Visit Provider Radiology Diagnostic Radiology | DX: M54.9 Dorsalgia, unspecified (principal) | CPT/HCPCS: 71046 ==

== ENCOUNTER 2025-06-11 10:25 | Outpatient (AMB) | payer OTHER, SELFPAY ==
--- NOTE | 2025-06-11 10:39 | A.OFFPC_ITS ---
Vital Signs 06/11/25 10:40 Height 6 ft Weight 214 lb 2 oz BMI 29.0 BP 120/78 Blood Pressure Location Lt brachial Position Sitting Pulse 56 Pulse Source Pulse Oximeter Temp 97.3 F Temp Source Temporal Artery Scan Pulse Oximetry (%) 96 Oxygen Delivery Method Room Air Intake Visit Reasons: IGT and cholesterol , lumbar radiculopathy, R uppe Allergies No Known Allergies (No Known Allergies*) Allergy (Verified 06/11/25 10:41) Medication List - Last Reconciled 06/11/25 by Delmy Quiroz MD amlodipine 5 mg PO DAILY aspirin 81 mg PO DAILY cyclobenzaprine 5 mg PO TID PRN gabapentin 200 mg (2 x 100 mg) PO BEDTIME MDD 200mg magnesium oxide 400 mg PO DAILY MDD 400mg metoprolol tartrate 50 mg PO BID multivit with [id number] 400-370 mcg (One-A-Day Men's 50 Plus) tabs PO omeprazole 20 mg PO QAM 90 days rosuvastatin 40 mg PO DAILY sennosides-docusate sodium 8.6-50 mg (Senna Plus) 2 tab-caps (2 x 8.6-50 mg) PO BEDTIME PRN 30 days sumatriptan succinate 50 mg orally; take only with the onset of migraines. May t alejandro one additional tablet 2 hours after the first tablet. triamcinolone acetonide 0.5% 1 appl topical BID Tobacco use date assessed: 02/19/25 Fall risk assessment: No Falls in past year Last assessed Fall Risk: 05/21/25 Dental Screening Dental Screen Date: 06/11/25 Did you have a dental visit in the last 12 months?: Yes Did you have a dental problem in the last 6 months where you did not have access to dental care?: No Was dental information given to patient?: Patient has dentist [facility] Medical History Dizziness Epigastric pain Back pain Encounter for annual physical examination excluding gynecological examination in a patient older than 17 years Renal calculus Erectile dysfunction Hypertension Protein S deficiency Hypercholesterolemia Pulmonary embolism CAD (coronary artery disease) Prostate CA Arthritis Polycythemia vera Hiatal hernia GERD (gastroesophageal reflux disease) Sleep apnea Hx of syncope Surgical History History of appendectomy History of inferior vena caval filter placement Hx of colonoscopy History of esophagogastroduodenoscopy (EGD) H/O prostatectomy Hx of cardiac cath Family History Father Medical history unknown Mother Diabetes Asthma Hypertension Brother Dialysis patient Sister Schizophrenia Sister Diabetes Chronic mental illness Other Mental health disorder Social History Housing: Apartment Are you a primary rn long term care to a significant other at home: Yes (brother) Do you presently have visiting nurse or other home services: Yes Alcohol intake: current Alcohol intake frequency: former alcohol drinker Alcohol type: beer Comment: PCP aware ( neuropathy)2x a week 2 beers (05/2025) Patient Tobacco Use Status: Never used Tobacco Tobacco use type: Cigarette Years Smoked: smoking marijuana e-Cigarette/Vaping Use: Never Used Second Hand Smoke Exposure: No Substance Use Type: Marijuana service: No Current occupational status: disabled Cognitive needs: No Hearing needs: No Vision needs: No Questionnaire PHQ-9 Over the last 2 weeks, how often have you been bothered by any of the following problems? 1. Little interest or pleasure in doing things: not at all 2. Feeling down, depressed, or hopeless: not at all 3. Trouble falling or staying asleep, or sleeping too much: not at all 4. Feeling tired or having little energy: not at all 5. Poor appetite or overeating: not at all 6. Feeling bad about yourself - or that you are a failure or have let yourself or your family down: not at all 7. Trouble concentrating on things, such as reading the newspaper or watching television: not at all 8. Moving or speaking so slowly that other people could have noticed. Or the opposite - being so fidgety or restless that you have been moving around a lot more than usual: not at all 9. Thoughts that you would be better off or of hurting yourself in some way: not at all Total score: 0 Depression Screening Interpretation: Positive Depression Screening Done: Yes Source: Developed by Drs. Emanuel Pablo, Shonda Griffith, Ethan Vieyra and colleagues, with an educational adonay from [employer]. Thrive Questionnaire Date Thrive assessed: 02/19/25 I am a: Patient What is your living situation today?: I have a steady place to live Within the past 12 months, did the food you bought not last and you didn't have the money to get more?: Often true Within the past 12 months, did you worry whether your food would run out before you got money to buy more?: Often true Do you have trouble paying for medicines?: Yes Do you have trouble getting transportation to medical appointments?: Yes Do you have trouble paying your heating and electricity bill?: Yes Do you have trouble taking care of your child, family member or friend?: Yes Do you have trouble with day-to-day activities such as bathing, preparing meals, shopping, managing finances, etc.?: I choose not to answer this question Are you currently unemployed and looking for a job?: I choose not to answer this question Are you interested in more education?: I choose not to answer this question Currently or been in a relationship where the following occur: I choose not to answer THRIVE Score: 4 AUDIT C Alcohol Use Questionnaire (AUDIT-C) 1. How often do you have a drink containing alcohol?: 2-4 times a month 2. How many drinks containing alcohol do you have on a typical day when you are drinking?: 1 or 2 3. How often do you have six or more drinks on one occasion?: Never Total Score: 2 TINY-7 AMB Questionnaire TINY-7 Date TINY - 7 assessed: 08/20/24 Feeling nervous, anxious, or on edge: 0 = Not at all Not being able to stop or control worryin = Nearly every day Worrying too much about different things: 3 = Nearly every day Trouble relaxin = More than half the days Being so restless that it is hard to sit still: 1 = Several days Becoming easily annoyed or irritable: 3 = Nearly every day Feeling afraid as if something awful might happen: 3 = Nearly every day Total TINY-7 score (0-4 normal; 5-9 mild; 10-14 moderate; 15-21 severe): 15 Source: Developed by Drs. Emanuel Pablo, Shonda Griffith, Ethan Vieyra and colleagues, with an educational adonay from [employer]. Physical exam (Primary Care) Vital Signs: Last Vital Signs Temp 97.3 F 06/11/25 10:40 Pulse 56 06/11/25 10:40 BP 120/78 06/11/25 10:40 Pulse Ox 96 06/11/25 10:40 Oxygen Delivery Method Room Air 06/11/25 10:40 BMI result Body Mass Index 29.0 Tobacco/Smoking Status: Tobacco use Status Tobacco use date assessed 02/19/25 06/11/25 10:42 Patient Tobacco Use Status Never used Tobacco 06/11/25 10:42 Tobacco use type Cigarette 06/11/25 10:42 e-Cigarette/Vaping Use Never Used 06/11/25 10:42 PHQ-9: PHQ-9 Score PHQ-9: Total score 0 06/11/25 11:03 Depression Screening Interpretation: Positive Thrive Assessment: Date of Thrive Assessment Date Thrive assessed 02/19/25 06/11/25 10:42 Currently or been in a relationship where the following occur: I choose not to answer Const General: alert; No acute distress Eyes Conjunctivae: conjunctivae normal Resp Auscultation: clear to auscultation bilaterally Cardio Rate: regular rate Rhythm: regular rhythm GI Inspection: Yes normal to inspection Extrem General: Yes normal to inspection and No edema Coding Level of Care Code Est Pt Level 4 (81311) Complex EM visit Add On G2211 Diagnoses Coronary artery disease involving chilkat coronary artery of chilkat heart without angina pectoris I25.10 Associated angina: without angina Coronary Disease-Associated Artery/Lesion type: chilkat artery [place] vs. transplanted heart: chilkat heart Hypercholesterolemia E78.00 Essential hypertension I10 Hypertension type: essential hypertension Impaired glucose tolerance R73.02 Overweight (BMI 25.0-29.9) E66.3 Gastroesophageal reflux disease without esophagitis K21.9 Esophagitis presence: without esophagitis Chest pain R07.9 Pulmonary embolism I26.99 Assessment & Plan Assessment & Plan (1) CAD (coronary artery disease): Comment: follows w/PCP only-Cath 2019 shows nml coronaries Code(s): I25.10 - Atherosclerotic heart disease of chilkat coronary artery without angina pectoris Category: Medical Qualifiers: Associated angina: without angina Coronary Disease-Associated Artery/Lesion type: chilkat artery [place] vs. transplanted heart: chilkat heart Qualified Code(s): I25.10 - Atherosclerotic heart disease of chilkat coronary artery without angina pectoris Plan: Control the cholesterol, weight, blood pressure, continue with aspirin 81 mg once a day (2) Hypercholesterolemia: Code(s): E78.00 - Pure hypercholesterolemia, unspecified Category: Medical Plan: Avoid fried foods, chicken skin, eggs, butter margarine, pastries and meat. Be it pork or beef they have a lot of cholesterol LDL goal of less than 70 and triglyceride of less than 150. On rosuvastatin 40 (3) Hypertension: Code(s): I10 - Essential (primary) hypertension Category: Medical Qualifiers: Hypertension type: essential hypertension Qualified Code(s): I10 - Essential (primary) hypertension Plan: Continue with blood pressure medication. Decrease salt intake and exercise patient on metoprolol 50 mg twice a day amlodipine 5 mg once a day (4) Impaired glucose tolerance: Code(s): R73.02 - Impaired glucose tolerance (oral) Category: Medical Plan: Decrease the amount of carbohydrate intake, pasta, bread, rice and potatoes are all sugar and that is aside from all the sweet stuff, remember that fruits are good but they are Sweet also. (5) Overweight (BMI 25.0-29.9): Code(s): E66.3 - Overweight Category: Medical Plan: Diet and exercise (6) GERD (gastroesophageal reflux disease): Comment: EGD August 200608/2024 Patulous esophagus with mildly disorganized peristalsis consistent with esophageal dysmotility. 2. Moderate-sized type I hiatal hernia with severe gastroesophageal reflux. 3. Multiple tiny foci of contrast pooling in the fundus and body of the stomach that may represent small mucosal ulcerations. Recommend correlation with EGD. 4. Multilevel degenerative changes noted throughout the cervical spi Code(s): K21.9 - Gastro-esophageal reflux disease without esophagitis Category: Medical Qualifiers: Esophagitis presence: without esophagitis Qualified Code(s): K21.9 - Gastro-esophageal reflux disease without esophagitis Plan: Avoid the foods that causes that usually spicy foods, tomato products, juices, coffee, soda and foods that your sensitive to. After eating do not lie down, allow 3-4 hours before in lie down. And keep the head of bed above 30 degrees to avoid the acid from going up. (7) Chest pain: Code(s): R07.9 - Chest pain, unspecified Category: Medical (8) Pulmonary embolism: Comment: 2003 Dr. Hoyt, PFT negative September 2019 Code(s): I26.99 - Other pulmonary embolism without acute cor pulmonale Category: Medical Plan History of Present Illness The patient is a 65-year-old male presenting for a follow-up visit for management of chronic conditions. His past medical history is significant for hypercholesterolemia, hypertension, coronary artery disease, nephrolithiasis, GERD, generalized anxiety disorder, a history of cervical spine fracture, and erythrocytosis. He also has a history of a pulmonary embolism in 2003. The patient was seen by a neurosurgeon on May 29 for lumbar radiculopathy. A lumbar MRI revealed mild to moderate degenerative changes but nothing significant to explain the weakness and numbness in his right leg, with no significant central canal stenosis. The neurosurgeon advised the patient to get a thoracic MRI. Recent blood work from June 03 showed a normal blood count with no anemia, normal electrolytes, and stable renal function. His blood sugar was 105 mg/dL with a hemoglobin A1c of 5.7%, and his LDL cholesterol was 55 mg/dL. Liver enzymes were noted to be elevated, which is a chronic finding. Vitamin B12, folic acid, thyroid function tests, and urinalysis were all within normal limits. A chest x-ray was also performed and was negative. Health Maintenance - The patient's last colonoscopy was in December 2024. - Recent laboratory work on June 03 revealed a hemoglobin A1c of 5.7%, indicating prediabetes. - LDL cholesterol was 55 mg/dL on recent labs. Social History Review of Systems - Neurological: Reports weakness and numbness of the right leg. Physical Exam Results - Labs (June 03): Blood count normal, no anemia, electrolytes normal, renal function stable, blood sugar 105 mg/dL, hemoglobin A1c 5.7%, LDL 55 mg/dL, B12 normal, folic acid normal, thyroid studies normal. - Liver enzymes: Elevated (chronic). - Urinalysis: Negative. - Chest X-ray: Negative. - Lumbar spine MRI: Mild to moderate degenerative changes; no significant central canal stenosis. Plan Patient was informed and verbally consented to the use of an ambient scribe for clinic note documentation during this visit. 1. Lumbar Radiculopathy The patient was seen by a neurosurgeon for this complaint. A lumbar MRI was performed which showed mild to moderate degenerative changes that do not explain the patient's right leg weakness and numbness. Per the neurosurgeon's recommendation, the patient has been advised to obtain a thoracic MRI for further evaluation. 2. Prediabetes Recent labs showed a hemoglobin A1c of 5.7% with a blood sugar of 105 mg/dL. Continue to monitor. 3. Hypercholesterolemia The patient's LDL cholesterol is well-controlled at 55 mg/dL. Continue current management. 4. Elevated Liver Enzymes This is a chronic, known issue. Continue to monitor. Discussion Notes Patient Instructions Orders: Orders CT angio chest PE protocol Today I26.99 - Other pulmonary embolism without acute cor pulmonale, R07.9 - Chest pain, unspecified CA stress test Today R07.9 - Chest pain, unspecified
[2025-06-11 10:40] VITALS: BP 120/78; PULSE 56; TEMP 36.3; O2SAT 96; BMI 29.0
--- OUTSIDE RECORDS SUMMARY | 2025-06-11 12:22 | XMS_ITS | Clinical Summary ---
[facility] Organization [facility] Address [address] [place] [address] Care Team Providers Care Peer Specialist Name Role Phone Unavailable Primary Care Provider Unavailabl e Surgical History Surgery Date Site/Laterality Comments APPENDECTOMY PROCEDURE: [place] APPENDEC INDICATED PURPOSE OTH MAJOR PX NOT [...]
== END 2025-06-11 11:18 | disposition home or self-care (01) ==
LOC: HO.HMCH 10:26
PROVIDERS: PCP Internal Medicine; Visit Provider Internal Medicine
DX: I25.10 Atherosclerotic heart disease of native coronary artery without angina pectoris (principal); E78.00 Pure hypercholesterolemia, unspecified; I26.99 Other pulmonary embolism without acute cor pulmonale; I10 Essential (primary) hypertension; R73.02 Impaired glucose tolerance (oral); E66.3 Overweight; K21.9 Gastro-esophageal reflux disease without esophagitis; R07.9 Chest pain, unspecified

== ENCOUNTER → 2025-06-11 10:25 | Outpatient (BNVA) | payer OTHER, SELFPAY | PROVIDERS: PCP Internal Medicine; Visit Provider Internal Medicine | DX: I25.10 Atherosclerotic heart disease of native coronary artery without angina pectoris (principal); E78.00 Pure hypercholesterolemia, unspecified; I10 Essential (primary) hypertension; R73.02 Impaired glucose tolerance (oral); E66.3 Overweight; K21.9 Gastro-esophageal reflux disease without esophagitis; R07.9 Chest pain, unspecified; I26.99 Other pulmonary embolism without acute cor pulmonale; M54.16 Radiculopathy, lumbar region; R73.03 Prediabetes; R74.8 Abnormal levels of other serum enzymes | CPT/HCPCS: 96127; 99212 ==

== ENCOUNTER → 2025-07-06 18:12 | Outpatient (BNV) | payer OTHER, SELFPAY | PROVIDERS: PCP Internal Medicine; Visit Provider Student in an Organized Health Care Education/Training Program | DX: R20.2 Paresthesia of skin (principal); M47.814 Spondylosis without myelopathy or radiculopathy, thoracic region; M47.812 Spondylosis without myelopathy or radiculopathy, cervical region; M48.02 Spinal stenosis, cervical region | CPT/HCPCS: 72141; 72146 ==

== ENCOUNTER 2025-07-06 18:16 | Outpatient (REF) | payer OTHER, SELFPAY ==
--- NOTE | ~2025-07-06 | MR_ITS ---
CLINICAL HISTORY: R20.0 - Anesthesia of skin MR thoracic spine without gadolinium Comparison: CR - XR THORACIC SPINE 3 VIEWS - 08/15/24 17:10 EST Findings: Moderately exaggerated thoracic kyphosis on degenerative basis. Moderate multilevel spondylosis of the thoracic spine with disc space narrowing, degenerative disc desiccation, small posterior disc bulges, ligamentum flavum thickening and facet arthropathy most notably at T2-T3 with severe spinal canal narrowing and chronic cord compression with increased focal T2 signal within the central cord with cord volume loss consistent with chronic myelomalacia. Moderate-sized vertebral body T4 vertebral body hemangioma. Thoracic cord normal size and signal. Otherwise no significant spinal canal neural foraminal narrowing. Paraspinous musculature intact. IMPRESSION: T2-T3 spondylosis predominantly with posterior disc bulge, and ligamentum flavum thickening causing severe spinal canal narrowing, chronic cord compression and chronic myelomalacia. Moderate multilevel spondylosis otherwise without significant spinal canal or neural foraminal narrowings. Moderately exaggerated thoracic kyphosis. This document has been electronically signed by: Hubert Pugh MD on 07/06/2025 19:46:18
--- NOTE | ~2025-07-06 | MR_ITS ---
CLINICAL HISTORY: R20.0 - Anesthesia of skin MR cervical spine without gadolinium Comparison: CR/SR - XR CERVICAL SPINE 3V - 03/02/23 13:58 EDT Findings: Straightening of the normal cervical lordosis on degenerative basis. Moderate multilevel spondylosis with degenerative disc desiccation, disc height loss, posterior disc osteophyte complex, uncovertebral joint hypertrophy and facet arthropathy. At C2-C3, no significant spinal canal or neural foraminal narrowing. At C3-C4, moderate spinal canal narrowing and abutment of the ventral cord without abnormal cord signal. Moderate bilateral neural foraminal narrowing. At C4-C5, moderate spinal canal narrowing and ventral cord remodeling. Moderate to severe bilateral neural foraminal narrowing. At C5-C6, mild spinal canal narrowing. Mild bilateral neural foraminal narrowing. C6-C7, no significant spinal canal or neural foraminal narrowing. At C7-T1, no significant spinal canal or neural foraminal narrowing. No acute fractures or pathologic bone lesions. Visualized intracranial contents are unremarkable. Soft tissues of the neck are normal. Cervical cord normal size and signal. IMPRESSION: No acute disease of the cervical spine. No abnormal cervical cord signal. Moderate multilevel spondylosis of the cervical spine notably at C3-C4, and C4-C5 levels with moderate spinal canal narrowing and moderate to severe bilateral neural foraminal narrowings. This document has been electronically signed by: Hubert Pugh MD on 07/06/2025 19:39:07
--- OUTSIDE RECORDS SUMMARY | 2025-07-06 18:53 | XMS_ITS | Clinical Summary ---
[facility] [address] [place] [address] Care Team Providers Care Baker Bread Name Role Phone Unavailable Primary Care Provider Unavailabl e Surgical History Surgery Date Site/Laterality Comments APPENDECTOMY PROCEDURE: [place] APPENDEC INDICATED PURPOSE OTH MAJOR PX NOT [...] Depression Screening 08/06/2024 COVID-19 Vaccine (1 - 2024- season) 2025 Influenza Vaccine (#1) 2025 5, [...]
== END 2025-07-06 18:17 | disposition home or self-care (01) ==
LOC: HO.MRI 18:16
PROVIDERS: PCP Internal Medicine; Visit Provider Physician Assistant
DX: R20.0 Anesthesia of skin (principal)
CPT/HCPCS: 72141; 72146

== ENCOUNTER 2025-07-10 13:23 | Outpatient (AMB) | payer OTHER, SELFPAY ==
--- NOTE | 2025-07-10 14:11 | HO.SPINEOV ---
Intake Visit Reasons: surgical consult with in office Intake Note: Mr. Kimble is here today to Discuss Surgery. Invoice Classification Clerk Required: No Allergies No Known Allergies (No Known Allergies*) Allergy (Verified 07/10/25 14:11) Assessment & Plan Assessment & Plan (1) Thoracic myelopathy: Code(s): M47.14 - Other spondylosis with myelopathy, thoracic region Category: Medical Plan Dear Dr Quiroz, Dr Manuel and I saw Mr Kimble today. As you know he has been having issues with left-sided thoracic radiculopathy as well as myelopathic symptoms in his lower extremities. [facility]3 [facility] with cord signal change suggesting myelopathy and myelomalacia. This would explain his symptoms of the numbness in the legs, his gait imbalance and might even explain some of his issues with rib pain and chest pain. We saw the patient today, went over the results of the MRI with him and the indications for surgery. We sat down and explained to him that because there is cord signal change seen in the spinal cord, there is already signs that there is likely going to be long lasting neurological problems even after decompression. We are hopeful that he will get some improvement in his walking, but the 1st goal of surgery is to prevent him from declining and becoming worse. At this point he is having a hard time even doing something simple like walking his dog so he is in need of surgery. As I understand it, he is in the middle of a cardiac workup, and tells me that he is going to have a stress test in the middle of July some time. We will await the results of that, but we have anticipated putting him on the surgical schedule for 08/27/2025. the surgery will be T2-3 bilateral decompression using a left-sided approach. We expect minimal blood loss. If you see something on his cardiac evaluation that you think should postpone the surgery. Please do not hesitate to contact us. The patient was given risk and benefits of surgery including but not limited to infection, hematoma, nerve injury, durotomy, weakness, bowel/bladder injury, persistent pain, persistent neurological deficits. All questions were answered to the best of our ability. If there is anything about this patients medical history that we have overlooked or concerns you have about us proceeding with surgery we would appreciate any input you can offer. he will stop his aspirin 1 week prior to surgery to minimize bleeding. Total amount of time spent in this visit was 20 minutes in discussion of symptoms, thoracic MRI imaging results and subsequent plan of care Jim Manuel MD,PhD [facility] Coding Level of Care Code Est Pt Level 3 (90538) Diagnoses Thoracic myelopathy M47.14
== END 2025-07-10 14:41 | disposition home or self-care (01) ==
LOC: HO.HNS 13:24
PROVIDERS: PCP Internal Medicine; Visit Provider Physician Assistant
DX: M47.14 Other spondylosis with myelopathy, thoracic region (principal)
CPT/HCPCS: 99213

== ENCOUNTER → 2025-07-10 13:23 | Outpatient (BNVA) | payer OTHER, SELFPAY | PROVIDERS: PCP Internal Medicine; Visit Provider Physician Assistant | DX: M47.14 Other spondylosis with myelopathy, thoracic region (principal) | CPT/HCPCS: 99212 ==

== ENCOUNTER → 2025-07-21 07:59 | Outpatient (REF) | payer OTHER, SELFPAY ==
--- NOTE | ~2025-07-21 | NM_ITS ---
EXERCISE MYOCARDIAL PERFUSION STUDY INDICATION: Chest pain to evaluate for myocardial ischemia TECHNIQUE: The patient was brought in for an exercise perfusion study on 07/21/2025. Patient performed exercise as per [facility] protocol and was injected 30 mCi of sestamibi once target heart rate was achieved. Images were obtained using the SPECT gamma camera interlaced with the gating device. Images were obtained in supine position. Resting perfusion study was performed on 07/22/2025. Patient was administered 30 mCi of sestamibi intravenously at rest. Images were then obtained in supine position. Images were processed with the software and compared side to side in short axis, horizontal long axis and vertical long axis views. Images obtained without without CT attenuation. Total DLP 148 mGy-cm. FINDINGS: Raw images were reviewed The stress perfusion study showed both attenuated as well as nonattenuated corrected images show normal uptake of radiotracer in all segments of the LV myocardium. The gated study shows normal LV systolic function with calculated LVEF of 63%. LV cavity is normal in size. The gated study shows normal systolic wall thickening and contraction of segments. Resting study shows no significant change in perfusion pattern compared to stress perfusion study. Gating at rest reveals normal systolic wall motion with ejection fraction at greater than 60%. The findings are consistent with normal myocardial perfusion. NM/NM al perf SPECT rest & str IMPRESSION: 1. Myocardial perfusion imaging study shows normal myocardial perfusion. 2. Gated LVEF is 63%. 3. Transient ischemic dilatation not present. EKG revealed negative for ischemia. Electronically signed by: Naseem Brewer MD 07/22/2025 04:36 PM [facility]
--- NOTE | 2025-07-21 08:01 | CA_ITS ---
Acquisition Time: 2025-07-21 08:04:43 Total Exercise Time: 00:08:20 Test Indications: CP Medications: SEE H&P Protocol: USMAN Max HR: 136 BPM 88% of Pred: 154 BPM Max BP: 150/78 mmHG Max Work Load: 10.1 METS Exercise stress test with exercise 8 mins 20 secs of Usman Protocol, achieving 87% MPHR, with reports of SOB and dizziness, with baseline 6/10 left lateral chest pain that is constant and unchanged with exercise, without any arrythmias, with normotensive response to exercise. Without any EKG changes meeting criteria for ischemia. In recovery, dizziness resolved and breathing returned to baseline. Nuclear images pending. Test reviewed with Dr. Riley. Referred By: Delmy Quiroz Electronically Signed By: Brayden Angel
--- OUTSIDE RECORDS SUMMARY | 2025-07-21 08:08 | XMS_ITS | Clinical Summary ---
[facility] Address [address] [place] [address] Care Team Providers Care Diesel Electrician Name Role Phone Unavailable Primary Care Provider Unavailabl e Surgical History Surgery Date Site/Laterality Comments APPENDECTOMY PROCEDURE: [place] APPENDEC INDICATED PURPOSE OTH MAJOR PX NOT [...] on file Sexual Orientation Not on file Plan of Treatment Health Maintenance Due Date [...]
== END ==
LOC: HO.CARD 07:59
PROVIDERS: PCP Internal Medicine; Visit Provider Internal Medicine
DX: R07.9 Chest pain, unspecified (principal)
CPT/HCPCS: 78452; 93017; A9500

== ENCOUNTER → 2025-07-21 08:01 | Outpatient (BNV) | payer OTHER, SELFPAY | PROVIDERS: PCP Internal Medicine | DX: R07.9 Chest pain, unspecified (principal) | CPT/HCPCS: 78452; 93016; 93018 ==